=== PATIENT | female | born 1935 | race Caucasian/White ===

== ENCOUNTER 2019-04-08 13:20 | Outpatient (RCR) | payer MEDICARE, OTHER, SELFPAY | END 2019-04-22 00:01 | LOC: LAB 13:20 | PROVIDERS: Family Provider Family Medicine; Visit Provider Nurse Practitioner Family | DX: I25.10 Atherosclerotic heart disease of native coronary artery without angina pectoris (principal); I10 Essential (primary) hypertension; N39.0 Urinary tract infection, site not specified | CPT/HCPCS: 81001; 87077; 87086 ×2; 87186 ==

== ENCOUNTER 2022-04-29 16:40 | Emergency (ER) | payer MEDICARE, OTHER, SELFPAY ==
[2022-04-29] VITALS (9 sets, daily range): BP systolic 111–141; BP diastolic 48–71; PULSE 56–68; RESP 15–19; TEMP 36.6; O2SAT 76–93; BMI 23.3
--- NOTE | 2022-04-29 16:49 | W.ED.CHESTPA ---
HPI - Chest Pain General: Chief Complaint: Chest Pain Stated Complaint: CHEST PAIN Time Seen by Provider: 04/29/22 16:47 Source: patient and EMS Mode of arrival: EMS Limitations: no limitations History of Present Illness: 86-year-old female states that she been having some left-sided chest pain over the last 2 hours. States the pain is sharp in nature she has had mild nausea denies any shortness of breath is currently a 1 out of 10. She denies any worsening improving factors denies any vomiting or diarrhea. Associated symptoms: Deny abdominal pain, dyspnea, fever(s), nausea or vomiting Review of Systems Const: Denies: fever(s), chills, body aches or change in appetite Eyes: Denies: blurry vision or eye discomfort ENMT: Denies: throat pain or dental pain Card: Reports: chest pain Resp: Denies: dyspnea GI: Denies: abdominal pain, nausea, vomiting or diarrhea : Denies: dysuria Musc: Denies: neck pain or back pain Skin/Breast: Denies: rash Neuro: Denies: headache(s) Psych: Denies: depression Uche/Lymph: Denies: easy bruising All/Imm: Denies: urticaria PFSH ED PFSH: Medical History History of [place] (myocardial infarction) PVD (peripheral vascular disease) Family History Other CAD (coronary artery disease) Social History Smoking and tobacco status: former smoker Physical Exam Const: COMMON NORMALS: patient oriented x3 and healthy appearing HENMT: COMMON NORMALS: normocephalic and atraumatic HEAD & SCALP: normocephalic and atraumatic Eye: COMMON NORMALS: Equal, round and reactive pupils present and EOMs intact bilaterally PUPIL: Yes Equal, round and reactive pupils present Neck/C-Spine: COMMON NORMALS: full ROM and supple Chest: COMMONS NORMALS: normal inspection of the chest and normal palpation of entire chest wall Resp: COMMON NORMALS: normal respiratory effort, No retractions, No use of accessory muscles and clear to auscultation bilaterally AUSCULTATION: clear to auscultation bilaterally Cardio: COMMON NORMALS: regular rate, regular rhythm and No murmurs present (Cardio) RATE: regular rate RHYTHM: regular rhythm GI: COMMON NORMALS: Normal to inspection, nondistended, normoactive bowel sounds present, Soft to palpation, non-tender and no masses PALPATION: Yes Soft to palpation Extremity: COMMON NORMALS: normal to inspection and full ROM Neuro: COMMON NORMALS: patient oriented x3, moves all extremities and no focal motor deficits Psych: COMMON NORMALS: mental status grossly normal, Normal thought process present and cooperative THOUGHT PROCESS: Normal thought process present Skin: COMMON NORMALS: no rashes or lesions noted and no wounds GENERAL SKIN EXAM: no rashes or lesions noted Course Vital Signs: Vital signs: Vital Signs Temperature 97.9 F 04/29/22 16:43 Pulse Rate 56 L 04/29/22 16:43 Respiratory Rate 15 04/29/22 16:43 Blood Pressure 131/71 04/29/22 19:15 Pulse Oximetry 91 04/29/22 18:36 Oxygen Delivery Me thod 04/29/22 16:43 MDM - Chest Pain Medical Decision Making Patient presents for chest pains atypical in nature initial repeat troponins negative CTA did show little pulmonary edema she has no shortness of breath here she has not been hypoxic we will start her on Lasix give her dose of Lasix here she is to follow-up with PCP and return if worsening she understands agrees to plan. Lab Data 04/29/22 17:00 04/29/22 17:00 Radiology Impressions Chest X-Ray 04/29/22 17:05 IMPRESSION: Mild cardiomegaly. Otherwise, no acute findings. Chest CTA 04/29/22 17:29 IMPRESSION: 1. There is no pulmonary embolism. 2. There is diffuse interstitial and ground-glass opacity in the lungs concerning for edema versus pneumonitis. Moderate to severe emphysematous changes are noted. Laboratory Results WBC 8.6 10^3/uL (4.0-10.0) 04/29/22 17:00 RBC 4.14 10^6/uL (4.1-5.3) 04/29/22 17:00 Hgb 10.9 g/dL (11.5-15.3) L 04/29/22 17:00 Hct 35.6 % (37.0-47.0) L 04/29/22 17:00 MCV 86.0 fl (81-99) 04/29/22 17:00 MCH 26.3 pg (28.0-34.0) L 04/29/22 17:00 MCHC 30.6 g/dL (30.0-36.0) 04/29/22 17:00 RDW 16.4 % (12.1-15.1) H 04/29/22 17:00 Plt Count 246 10^3/cmm (130-400) 04/29/22 17:00 MPV 10.2 fL (7.4-10.4) 04/29/22 17:00 Neut % (Auto) 59.7 % 04/29/22 17:00 Lymph % (Auto) 24.9 % 04/29/22 17:00 [place] % (Auto) 11.4 % 04/29/22 17:00 Eos % (Auto) 2.8 % 04/29/22 17:00 Baso % (Auto) 0.9 % 04/29/22 17:00 Neut # (Auto) 5.13 10^3/uL (1.8-7.7) 04/29/22 17:00 Lymph # (Auto) 2.1 10^3/uL (0.8-4.8) 04/29/22 17:00 [place] # (Auto) 1.0 10^3/uL (0.2-0.9) H 04/29/22 17:00 Eos # (Auto) 0.2 10^3/uL (0.0-0.8) 04/29/22 17:00 Baso # (Auto) 0.1 10^3/uL (0.0-0.1) 04/29/22 17:00 Nucleated RBC % (auto) 0 % 04/29/22 17:00 Nucleated RBCs # 0.0 /100WBC 04/29/22 17:00 Sodium 138 mmol/L (136-145) 04/29/22 17:00 Potassium 4.1 mmol/L (3.5-5.1) 04/29/22 17:00 Chloride 102 mmol/L (98-107) 04/29/22 17:00 Carbon Dioxide 24 mmol/L (22-29) 04/29/22 17:00 Anion Gap 16.1 (5-19) 04/29/22 17:00 BUN 15 mg/dL (8-23) 04/29/22 17:00 Creatinine 1.0 mg/dL (0.5-0.9) H 04/29/22 17:00 GFR Calculation Not Reportable 04/29/22 17:00 Glucose 96 mg/dL (65-115) 04/29/22 17:00 Calculated Osmolality 287 mOsm/kg (285-295) 04/29/22 17:00 Calcium 8.7 mg/dL (8.5-10.5) 04/29/22 17:00 Total Bilirubin 0.5 mg/dL (0.15-1.2) 04/29/22 17:00 AST 21 U/L (0-32) 04/29/22 17:00 ALT 9 U/L (0-33) 04/29/22 17:00 Alkaline Phosphatase 94 U/L (35-105) 04/29/22 17:00 Troponin T Baseline 22 ng/L (0-10) H 04/29/22 17:00 Troponin T 120 Minute 19.94 ng/L (0-10) H 04/29/22 18:58 Delta Troponin T -2.06 ABS# (0-10) L 04/29/22 18:58 NT-Pro-B Natriuret Pep 694 pg/mL (0-450) H 04/29/22 18:58 Total Protein 7.1 g/dL (6.6-8.7) 04/29/22 17:00 Albumin 4.0 g/dL (3.5-5.2) 04/29/22 17:00 Globulin 3.1 g/dL (1.3-4.6) 04/29/22 17:00 EKG Data EKG 1: I personally reviewed and interpreted this EKG as follows: EKG interpretation date: 04/29/22 EKG interpretation time: 16:49 Interpretation: nsr hr [address] or t wave abnormalities qrs 97 qtc 407 Discharge Plan Discharge Patient Disposition: Home Clinical Impression: Chest pain, Pulmonary edema Condition: Stable Prescriptions: New Lasix 40 mg tablet 40 mg PO DAILY Qty: 30 0RF No Action loperamide 2 mg capsule 2 mg PO Q6H PRN hydrocodone-acetaminophen 5-325 mg tablet 1 tab PO Q6H PRN aspirin [Adult Low Dose Aspirin] 81 mg tablet,delayed release (DR/EC) 81 mg PO DAILY pregabalin [Lyrica] 50 mg capsule 50 mg PO BID acetaminophen [Tylenol 8 Hour] 650 mg tablet extended release 650 mg PO Q12H PRN fentanyl 12 mcg/hr patch 72 hour 1 patch TRANSDERMA Q72H clopidogrel [Plavix] 75 mg tablet 75 mg PO DAILY nitroglycerin [Nitrostat] 0.4 mg tablet, sublingual 0.4 mg SUBLINGUAL Q5M PRN pantoprazole [Protonix] 20 mg tablet,delayed release (DR/EC) 20 mg PO BID cranberry 500 mg capsule 500 mg PO BID gelatin 600 mg capsule PO rosuvastatin 5 mg tablet 5 mg PO DAILY melatonin 1 mg tablet 1 mg PO DAILY Discharge Orders: Discharge ED (Routine); Ordered 04/29/22 Ordered By: Camila Quinones Referrals: Velasquez Amaral Jr, MD [Primary Care Provider] - 1-3 days Discharge Diet: Advance as tolerated Discharge Activity: Resume usual activity Patient Instructions: Chest Pain (ED) Coding Level of Care Code ED Tool And Die Machinist for Chg Fwd Exam Comprehensive
--- NOTE | 2022-04-29 17:05 | XRR_ITS ---
PROCEDURE INFORMATION: Exam: XR Chest Exam date and time: 04/29/2022 5:11 PM Age: 86 years old Clinical indication: Pain; Chest pressure; Additional info: Cp TECHNIQUE: Imaging protocol: Radiologic exam of the chest. Views: 1 view. COMPARISON: CT chest w con* [id number] 11/14/2016 3:48 PM FINDINGS: Lungs: Mild diffuse coarsening of the lung parenchyma. No consolidation. No consolidation. Pleural spaces: No pleural effusion. No pneumothorax. Heart/Mediastinum: Mild cardiomegaly. Bones/joints: Unremarkable. XR/XR chest 1V portable [id number] IMPRESSION: Mild cardiomegaly. Otherwise, no acute findings.
--- NOTE | 2022-04-29 17:05 | ECG_ITS ---
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 Measurements Intervals [place] Rate: 60 P: 55 WI: 172 QRS: 30 QRSD: 97 T: -60 QT: 407 QTc: 407 Interpretive Statements SINUS RHYTHM WITH OCCASIONAL SUPRAVENTRICULAR PREMATURE COMPLEXES INCOMPLETE RIGHT BUNDLE BRANCH BLOCK [90+ ms QRS DURATION, TERMINAL R IN V1/V2, 40+ ms S IN I/aVL/V4/V5/V6] SEPTAL MYOCARDIAL INFARCTION , PROBABLY OLD [40+ ms Q WAVE IN V1/V2] Compared to ECG 09/01/2016 11:17:47 Incomplete right bundle-branch block now present Sinus bradycardia no longer present Ventricular premature complex(es) no longer present Myocardial infarct finding still present Electronically Signed On 04-30-2022 20:00:28 CHORAL DIRECTOR by Ryanne Rodriguez M.D. [id number]
[2022-04-29 17:15] LABS: Basophils # 0.1 10^3/uL (0.0-0.1); Basophils % 0.9 %; Eosinophils # 0.2 10^3/uL (0.0-0.8); Eosinophils % 2.8 %; Hematocrit 35.6 % (37.0-47.0); Hemoglobin 10.9 g/dL (11.5-15.3); Lymphocytes # 2.1 10^3/uL (0.8-4.8); Lymphocytes % 24.9 %; Mean Corpuscular HGB Conc 30.6 g/dL (30.0-36.0); Mean Corpuscular Hemoglobin 26.3 pg (28.0-34.0); Mean Platelet Volume 10.2 fL (7.4-10.4); Monocytes % 11.4 %; Neutrophils # 5.13 10^3/uL (1.8-7.7); Neutrophils % 59.7 %; Nucleated Red Blood Cells % 0 %; Platelet Count 246 10^3/cmm (130-400); Red Blood Count 4.14 10^6/uL (4.1-5.3); Red Cell Distribution Width 16.4 % (12.1-15.1); White Blood Count 8.6 10^3/uL (4.0-10.0)
--- NOTE | 2022-04-29 17:29 | CTR_ITS ---
PROCEDURE INFORMATION: Exam: CTA Chest With Contrast Exam date and time: 04/29/2022 5:47 PM Age: 86 years old Clinical indication: Shortness of breath; Additional info: SOB TECHNIQUE: Imaging protocol: Computed tomographic angiography of the chest with contrast. 3D rendering (Not supervised by radiologist): MIP and/or 3D reconstructed images were created by the technologist. Radiation optimization: All CT scans at this facility use at least one of these dose optimization techniques: automated exposure control; mA and/or kV adjustment per patient size (includes targeted exams where dose is matched to clinical indication); or iterative reconstruction. Contrast material: OMNI 350; Contrast volume: 74 ml; Contrast route: INTRAVENOUS (IV); COMPARISON: CT chest w con* [id number] 11/14/2016 3:48 PM RADIATION DOSE METRICS: Total DLP (mGy-cm): 3005.24 FINDINGS: Pulmonary arteries: There is no pulmonary embolism. Aorta: Unremarkable. No aortic aneurysm. No aortic dissection. Lungs: There are moderate to severe emphysematous changes. There is diffuse interstitial and ground-glass opacity in the lungs concerning for edema versus pneumonitis. There is subpleural atelectasis of the dependent portions of the lungs. There is no dense lobar consolidation. Pleural spaces: Unremarkable. No pneumothorax. No pleural effusion. Heart: The heart is enlarged. There is a small pericardial fluid collection present. Lymph nodes: Unremarkable. No enlarged lymph nodes. Diaphragm: A large hiatal hernia is present. Gallbladder and bile ducts: Multiple calcified gallstones are present. There is no wall thickening or pericholecystic fluid to suggest cholecystitis. There is no common bile duct dilation. Bones/joints: Unchanged chronic fractures of T10 and L1 are noted. No acute bony abnormality. Soft tissues: Unremarkable. CT/CT angio chest PE protcl [id number] IMPRESSION: 1. There is no pulmonary embolism. 2. There is diffuse interstitial and ground-glass opacity in the lungs concerning for edema versus pneumonitis. Moderate to severe emphysematous changes are noted.
[2022-04-29 17:34] LABS: Alanine Aminotransferase 9 U/L (0-33); Alkaline Phosphatase 94 U/L (35-105); Aspartate Amino Transferase 21 U/L (0-32); Blood Urea Nitrogen 15 mg/dL (8-23); Calcium 8.7 mg/dL (8.5-10.5); Carbon Dioxide 24 mmol/L (22-29); Chloride 102 mmol/L (98-107); Globulin 3.1 g/dL (1.3-4.6); Glucose 96 mg/dL (65-115); Osmolality Calculated 287 mOsm/kg (285-295); Sodium 138 mmol/L (136-145); Total Bilirubin 0.5 mg/dL (0.15-1.2); Total Protein 7.1 g/dL (6.6-8.7); Troponin(5th) Baseline 22 ng/L (0-10)
[2022-04-29 17:37] LABS: Anion Gap 16.1 (5-19); Potassium 4.1 mmol/L (3.5-5.1)
[2022-04-29] MEDS: iohexol 350 mg/mL 500 mL Btl (per mL) IV (17:51)
--- NOTE | 2022-04-29 19:05 | ECG_ITS ---
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 Measurements Intervals [place] Rate: 64 P: 55 GA: 183 QRS: -2 QRSD: 89 T: -8 QT: 411 QTc: 426 Interpretive Statements SINUS RHYTHM WITH OCCASIONAL SUPRAVENTRICULAR PREMATURE COMPLEXES NONSPECIFIC T-WAVE ABNORMALITY Compared to ECG 04/29/2022 16:49:10 T-wave abnormality now present Incomplete right bundle-branch block no longer present Myocardial infarct finding no longer present Electronically Signed On 04-30-2022 20:18:10 ENGINEERING SURVEYOR by Ryanne Rodriguez M.D. [id number]"
[2022-04-29] MEDS: ondansetron 2 mg/ML SDV 2 mL 4 MG IVP (19:26)
[2022-04-29 19:27] LABS: Troponin 5 2HR 19.94 ng/L (0-10)
[2022-04-29 19:28] LABS: Troponin 5 2HR Delta -2.06 ABS# (0-10)
[2022-04-29 19:36] LABS: NT Pro B Type Natriuretic Pept 694 pg/mL (0-450)
== END 2022-04-29 20:15 | disposition home or self-care (01) ==
PROVIDERS: Emergency Provider Emergency Medicine; PCP Family Medicine
DX: R07.9 Chest pain, unspecified (principal); J81.1 Chronic pulmonary edema; Z79.82 Long term (current) use of aspirin; Z79.02 Long term (current) use of antithrombotics/antiplatelets; I25.2 Old myocardial infarction; Z87.891 Personal history of nicotine dependence
CPT/HCPCS: 36415; 71045; 71275; 80053; 83880; 84484; 85025; 93005; 96374; 99285; J2405; Q9967

== ENCOUNTER 2022-05-05 11:54 | Outpatient (CLI) | payer MEDICARE, OTHER, SELFPAY ==
[2022-05-05 13:06] LABS: Anion Gap 19.2 (5-19); Blood Urea Nitrogen 34 mg/dL (8-23); Calcium 9.2 mg/dL (8.5-10.5); Carbon Dioxide 26 mmol/L (22-29); Chloride 95 mmol/L (98-107); Glucose 138 mg/dL (65-115); Osmolality Calculated 294 mOsm/kg (285-295); Potassium 3.2 mmol/L (3.5-5.1); Sodium 137 mmol/L (136-145)
== END 2022-05-05 11:55 | disposition home or self-care (01) ==
PROVIDERS: PCP Family Medicine; Visit Provider Family Medicine
DX: I10 Essential (primary) hypertension (principal)
CPT/HCPCS: 80048

== ENCOUNTER 2022-05-12 09:33 | Outpatient (CLI) | payer MEDICARE, OTHER, SELFPAY ==
[2022-05-12 09:48] LABS: Bilirubin Urine Neg (Negative); Blood Urine 2+ (Negative); Glucose Urine UA Norm (Normal); Ketones Urine Negative (Negative); Nitrate Urine Negative (Negative); Protein Urine Neg (Negative); Specific Gravity, Urine 1.015 (1.005-1.030); Urine Appearance Clear (CLEAR); Urine Color Yellow (Yellow); Urobilinogen Urine Neg (Negative); pH Urine 6 (5-7)
[2022-05-12 09:49] LABS: Add Urine Microscopic? YES; Leukocyte Esterase Urine 1+ (Negative)
[2022-05-12 09:55] LABS: Squamous Epithelial Cell Urine 0-4 /hpf (0-5); WBC Urine 0-4 /hpf (0-5)
[2022-05-12 09:56] LABS: Add Urine Culture? No
== END 2022-05-12 09:34 | disposition home or self-care (01) ==
PROVIDERS: PCP Family Medicine; Visit Provider Family Medicine
DX: N39.0 Urinary tract infection, site not specified (principal)
CPT/HCPCS: 81001; 87086

== ENCOUNTER 2022-07-11 13:33 | Outpatient (CLI) | payer MEDICARE, OTHER, SELFPAY ==
[2022-07-11 13:36] LABS: Add Urine Microscopic? NO; Charge for UA Resulting for Rev
[2022-07-11 14:09] LABS: Bilirubin Urine Neg (Negative); Blood Urine Neg (Negative); Glucose Urine UA Norm (Normal); Ketones Urine Negative (Negative); Leukocyte Esterase Urine Negative (Negative); Nitrate Urine Negative (Negative); Protein Urine Neg (Negative); Specific Gravity, Urine 1.015 (1.005-1.030); Urine Appearance Clear (CLEAR); Urine Color Yellow (Yellow); Urobilinogen Urine Norm (Negative); pH Urine 7 (5-7)
== END 2022-07-11 13:34 | disposition home or self-care (01) ==
PROVIDERS: PCP Family Medicine; Visit Provider Family Medicine
DX: N39.0 Urinary tract infection, site not specified (principal)
CPT/HCPCS: 81003; 87086

== ENCOUNTER 2022-08-10 07:42 | Outpatient (CLI) | payer MEDICARE, OTHER, SELFPAY ==
[2022-08-10 08:06] LABS: Basophils # 0.1 10^3/uL (0.0-0.1); Eosinophils # 0.6 10^3/uL (0.0-0.8); Eosinophils % 6.3 %; Hematocrit 35.9 % (37.0-47.0); Lymphocytes # 2.2 10^3/uL (0.8-4.8); Lymphocytes % 25.3 %; Mean Corpuscular HGB Conc 30.6 g/dL (30.0-36.0); Mean Corpuscular Hemoglobin 25.7 pg (28.0-34.0); Mean Corpuscular Volume 83.9 fl (81-99); Mean Platelet Volume 9.5 fL (7.4-10.4); Monocytes # 1.1 10^3/uL (0.2-0.9); Monocytes % 12.6 %; Neutrophils % 54.3 %; Nucleated Red Blood Cells % 0 %; Platelet Count 273 10^3/cmm (130-400); Red Blood Count 4.28 10^6/uL (4.1-5.3); Red Cell Distribution Width 16.3 % (12.1-15.1); White Blood Count 8.8 10^3/uL (4.0-10.0)
[2022-08-10 08:26] LABS: Glucose Urine UA Norm (Normal); Ketones Urine Negative (Negative); Protein Urine Neg (Negative); Specific Gravity, Urine 1.015 (1.005-1.030); Urine Appearance Clear (CLEAR); Urine Color Yellow (Yellow); pH Urine 6.5 (5-7)
[2022-08-10 08:27] LABS: Bacteria Urine TRACE /hpf; Bilirubin Urine Neg (Negative); Blood Urine Neg (Negative); Calcium Oxalate Crystals Urine 0-4 /hpf; Leukocyte Esterase Urine 2+ (Negative); Nitrate Urine Negative (Negative); RBC Urine 0-4 /hpf (0-2); Squamous Epithelial Cell Urine 0-4 /hpf (0-5); Urobilinogen Urine Norm (Negative)
[2022-08-10 08:46] LABS: Alanine Aminotransferase < 5 U/L (0-33); Albumin Level 3.2 g/dL (3.5-5.2); Alkaline Phosphatase 90 U/L (35-105); Aspartate Amino Transferase 14 U/L (0-32); Blood Urea Nitrogen 20 mg/dL (8-23); Calcium 8.5 mg/dL (8.5-10.5); Carbon Dioxide 28 mmol/L (22-29); Chloride 100 mmol/L (98-107); Globulin 3.3 g/dL (1.3-4.6); Glucose 82 mg/dL (65-115); Osmolality Calculated 294 mOsm/kg (285-295); Sodium 141 mmol/L (136-145); Thyroid Stimulating Hormone 5.16 uIU/mL (0.27-4.20); Total Bilirubin 0.3 mg/dL (0.15-1.2); Total Protein 6.5 g/dL (6.6-8.7)
== END 2022-08-10 07:43 | disposition home or self-care (01) ==
PROVIDERS: PCP Family Medicine; Visit Provider Family Medicine
DX: E03.9 Hypothyroidism, unspecified (principal); N39.0 Urinary tract infection, site not specified; E78.5 Hyperlipidemia, unspecified; D64.9 Anemia, unspecified; I10 Essential (primary) hypertension
CPT/HCPCS: 80053; 81001; 84443; 85025; 87086

== ENCOUNTER 2022-08-30 16:43 | Outpatient (CLI) | payer MEDICARE, OTHER, SELFPAY ==
[2022-08-30 17:37] LABS: Anion Gap 17.2 (5-19); Blood Urea Nitrogen 14 mg/dL (8-23); Calcium 8.6 mg/dL (8.5-10.5); Carbon Dioxide 22 mmol/L (22-29); Chloride 104 mmol/L (98-107); Glucose 106 mg/dL (65-115); Osmolality Calculated 289 mOsm/kg (285-295); Potassium 4.2 mmol/L (3.5-5.1); Sodium 139 mmol/L (136-145)
== END 2022-08-30 16:44 | disposition home or self-care (01) ==
LOC: LAB 16:44
PROVIDERS: PCP Family Medicine; Visit Provider Family Medicine
DX: I10 Essential (primary) hypertension (principal)
CPT/HCPCS: 80048

== ENCOUNTER 2022-09-05 16:24 | Inpatient (IN) | payer MEDICARE, OTHER, SELFPAY ==
[2022-09-05 16:27] VITALS: BP 142/61; PULSE 73; RESP 16; TEMP 36.6; O2SAT 97; BMI 22.6
--- NOTE | 2022-09-05 16:32 | XRR_ITS ---
PROCEDURE INFORMATION: Exam: XR Chest Exam date and time: 09/05/2022 5:13 PM Age: 86 years old Clinical indication: Cough and shortness of breath; Additional info: Dyspnea/cough TECHNIQUE: Imaging protocol: Radiologic exam of the chest. Views: 1 view. COMPARISON: CR XR chest 1V portable [id number] 04/29/2022 5:11 PM FINDINGS: Lungs: Diffuse perihilar predominant interstitial prominence is similar to previous. There is new interstitial opacity in the peripheral left mid lung. Pleural spaces: Unremarkable. No pleural effusion. No pneumothorax. Heart/Mediastinum: Stable heart size. Stable large hiatal hernia. Bones/joints: Stable bones. XR/XR chest 1V portable [id number] IMPRESSION: New peripheral left mid lung interstitial opacity suspicious for pneumonia superimposed on similar-appearing perihilar predominant interstitial opacities, which may be chronic.
--- NOTE | 2022-09-05 16:42 | ED_ITS ---
HPI - SOB/Dyspnea General: Chief Complaint: Shortness of Breath/Dyspnea Stated Complaint: low o2 Time Seen by Provider: 09/05/22 16:31 Source: patient Mode of arrival: ambulatory History of Present Illness: HPI Narrative: 86-year-old female presents to the emergency room complaining of shortness of breath. She normally lives at [facility] she was noted to be mildly hypoxic yesterday but refused to come to the emergency room. She denies any fever sweats or chills she is normally not on any oxygen she is not requiring 2 L by nasal cannula to maintain her sats in the mid to upper 90s. She denies fever sweats chills or chest pain. She does have a history of coronary disease over 25 years ago patient had several stents placed per her report. She denies any chest pain. She does have some mild dementia. Family member later at the bedside confirms MD elicited complaint: shortness of breath Pertinent past history: COPD Onset (ago): day(s) Timing: constant Severity: moderate Exacerbating factors: lying flat and exertion Relieving factors: oxygen and rest Known history of: COPD Associated symptoms: Reports chest congestion, cough and nausea; Deny abdominal pain, chest pain, diaphoresis, dizziness, extremity pain, fever(s), hemoptysis, lightheadedness, myalgias, orthopnea, palpitations, paresthesias, polydipsia, polyuria, rash, sense of impending doom, syncope or vomiting Treatment prior to arrival: oxygen Review of Systems Const: Denies: fever(s) or diaphoresis Card: Denies: chest pain, palpitations, lightheadedness, syncope or orthopnea Resp: Reports: chest congestion; Denies: hemoptysis GI: Reports: nausea; Denies: abdominal pain or vomiting Musc: Denies: extremity pain Neuro: Denies: dizziness Endo: Denies: polyuria or polydipsia PFS ED PFSH: Medical History GERD (gastroesophageal reflux disease) History of [place] (myocardial infarction) Neuropathy PVD (peripheral vascular disease) Family History Other CAD (coronary artery disease) Social History Smoking and tobacco status: former smoker Physical Exam Const: COMMON NORMALS: no acute distress ORIENTATION/CONSCIOUSNESS: Yes awake HENMT: COMMON NORMALS: normocephalic, atraumatic and hearing grossly normal bilaterally HEAD & SCALP: normocephalic and atraumatic Resp: COMMON NORMALS: normal respiratory effort, No retractions and No use of accessory muscles AUSCULTATION: rhonchi and wheezes Cardio: COMMON NORMALS: regular rate, regular rhythm and No murmurs present (Cardio) RATE: regular rate RHYTHM: regular rhythm GI: COMMON NORMALS: Soft to palpation and No hepatosplenomegaly present AUSCULTATION: Yes normoactive bowel sounds PALPATION: Yes Soft to palpation, No Tenderness to palpation present (GI), No Guarding due to palpation present (GI) and Yes No hepatosplenomegaly present Extremity: COMMON NORMALS: normal to inspection, capillary refill normal, no clubbing, cyanosis or edema, no calf tenderness and no pedal edema Skin: COMMON NORMALS: no rashes or lesions noted GENERAL SKIN EXAM: no rashes or lesions noted Course Vital Signs: Vital signs: Vital Signs Temperature 98.4 F 09/06/22 03:49 Pulse Rate 70 09/06/22 03:49 Respiratory Rate 17 09/06/22 03:49 Blood Pressure 110/61 09/06/22 03:49 Pulse Oximetry 90 09/06/22 03:49 Oxygen Delivery Me thod Nasal Cannula 09/06/22 00:04 Oxygen Flow Rate 2 09/05/22 19:00 MDM - SOB/Dyspnea Medical Decision Making Labs and imaging reviewed. Left midlung zone there is an opacity. This correlates with her new oxygen need clinically she does appear to have a pneumonia. Recommend admission for IV antibiotics. Discussed with family at. They are in agreement at this time although there is somewhat hesitant. They wish to treat as an outpatient advised him I think it is best least for the first few days to treat as an inpatient. Discussed Dr. Sheffield orders written Medical Records I reviewed the patient's medical records. Lab Data I reviewed the patient's lab results. 09/06/22 06:28 09/05/22 17:24 Labs/Radiology: Radiology Impressions Chest X-Ray 09/05/22 16:32 IMPRESSION: New peripheral left mid lung interstitial opacity suspicious for pneumonia superimposed on similar-appearing perihilar predominant interstitial opacities, which may be chronic. Laboratory Results WBC 7.1 10^3/uL (4.0-10.0) 09/05/22 17:24 RBC 4.24 10^6/uL (4.1-5.3) 09/05/22 17:24 Hgb 11.2 g/dL (11.5-15.3) L 09/05/22 17:24 Hct 36.2 % (37.0-47.0) L 09/05/22 17:24 MCV 85.4 fl (81-99) 09/05/22 17:24 MCH 26.4 pg (28.0-34.0) L 09/05/22 17:24 MCHC 30.9 g/dL (30.0-36.0) 09/05/22 17:24 RDW 17.2 % (12.1-15.1) H 09/05/22 17:24 Plt Count 227 10^3/cmm (130-400) 09/05/22 17:24 MPV 9.1 fL (7.4-10.4) 09/05/22 17:24 Neut % (Auto) 58.8 % 09/05/22 17:24 Lymph % (Auto) 23.8 % 09/05/22 17:24 [place] % (Auto) 13.0 % 09/05/22 17:24 Eos % (Auto) 3.5 % 09/05/22 17:24 Baso % (Auto) 0.8 % 09/05/22 17:24 Neut # (Auto) 4.16 10^3/uL (1.8-7.7) 09/05/22 17:24 Lymph # (Auto) 1.7 10^3/uL (0.8-4.8) 09/05/22 17:24 [place] # (Auto) 0.9 10^3/uL (0.2-0.9) 09/05/22 17:24 Eos # (Auto) 0.3 10^3/uL (0.0-0.8) 09/05/22 17:24 Baso # (Auto) 0.1 10^3/uL (0.0-0.1) 09/05/22 17:24 Nucleated RBC % (auto) 0 % 09/05/22 17:24 Nucleated RBCs # 0.0 /100WBC 09/05/22 17:24 Specimen Type Arterial 09/05/22 16:43 Sample Site Brachial, right 09/05/22 16:43 ABG pH 7.41 (7.35-7.45) 09/05/22 16:43 ABG pCO2 41.6 mmHg (35-45) 09/05/22 16:43 ABG pO2 65.6 mmHg (80.0-100.0) L 09/05/22 16:43 ABG HCO3 26.4 mmol/L (22-26) H 09/05/22 16:43 ABG O2 Saturation 94.3 09/05/22 16:43 ABG Base Excess 1.6 mmol/L (-2.0-2.0) 09/05/22 16:43 Gaurav Test N/a 09/05/22 16:43 A-a O2 Gradient 10.6 mmHg (5-10) H 09/05/22 16:43 Hematocrit 34.7 % (37-47) L 09/05/22 16:43 Hgb O2 Saturation 92.1 % (95-100) L 09/05/22 16:43 Carboxyhemoglobin 1.6 %THgb (0.4-20.1) 09/05/22 16:43 Methemoglobin 0.7 % (0.4-1.5) 09/05/22 16:43 Total Hemoglobin 11.3 g/dL (12-16) L 09/05/22 16:43 Sodium 139.0 mmol/L (131-143) 09/05/22 16:43 Potassium 4.0 mmol/L (3.5-5.0) 09/05/22 16:43 Glucose 135.0 mg/dL (70-115) H 09/05/22 16:43 Ionized Calcium 1.2 mmol/L (1.1-1.4) 09/05/22 16:43 O2 Delivery Device Nc 09/05/22 16:43 O2 Liters/Min 2.0 % 09/05/22 16:43 FiO2 28.0 % 09/05/22 16:43 Chucking And Boring Machine Operator ID [email or web address] 09/05/22 16:43 Sodium 137 mmol/L (136-145) 09/05/22 17:24 Potassium 4.2 mmol/L (3.5-5.1) 09/05/22 17:24 Chloride 102 mmol/L (98-107) 09/05/22 17:24 Carbon Dioxide 26 mmol/L (22-29) 09/05/22 17:24 Anion Gap 13.2 (5-19) 09/05/22 17:24 BUN 9 mg/dL (8-23) 09/05/22 17:24 Creatinine 0.9 mg/dL (0.5-0.9) 09/05/22 17:24 GFR Calculation Not Reportable 09/05/22 17:24 Glucose 113 mg/dL (65-115) 09/05/22 17:24 Calculated Osmolality 283 mOsm/kg (285-295) L 09/05/22 17:24 Calcium 8.9 mg/dL (8.5-10.5) 09/05/22 17:24 Total Bilirubin 0.3 mg/dL (0.15-1.2) 09/05/22 17:24 AST 37 U/L (0-32) H 09/05/22 17:24 ALT 28 U/L (0-33) 09/05/22 17:24 Alkaline Phosphatase 154 U/L (35-105) H 09/05/22 17:24 NT-Pro-B Natriuret Pep 454 pg/mL (0-450) H 09/05/22 17:24 Total Protein 6.8 g/dL (6.6-8.7) 09/05/22 17:24 Albumin 3.5 g/dL (3.5-5.2) 09/05/22 17:24 Globulin 3.3 g/dL (1.3-4.6) 09/05/22 17:24 Discharge Plan Discharge Patient Disposition: Admitted As Inpatient Admit Provider: Deon Sheffield Clinical Impression: Community acquired pneumonia, Acute exacerbation of chronic obstructive airways disease, Heart failure with preserved ejection fraction, Lives in assisted living facility, History of OH (myocardial infarction), PVD (peripheral vascular disease) Condition: Stable Coding Level of Care Code ED Slab Puller for Dominick Brewster
[2022-09-05 16:54] LABS: ABG PCO2 41.6 mmHg (35-45); ABG PH Result 7.41 (7.35-7.45); Alveolar-Arterial Oxygen Gradi 10.6 mmHg (5-10); Arterial Blood Gas Hematocrit 34.7 % (37-47); Base Excess ABG 1.6 mmol/L (-2.0-2.0); Blood Gas Operator Identificat AMH; Blood Gas Sample Site Brachial, right; Blood Gas Sample Type Arterial; Carboxyhemoglobin 1.6 %THgb (0.4-20.1); HCO3 ABG 26.4 mmol/L (22-26); HGB O2 Sat 92.1 % (95-100); Ionized Calcium Level - ABG 1.2 mmol/L (1.1-1.4); Methemoglobin 0.7 % (0.4-1.5); Oxygen Device NC; Oxygen Saturation ABG 94.3; PO2 ABG 65.6 mmHg (80.0-100.0); Total Hemoglobin 11.3 g/dL (12-16)
[2022-09-05 17:35] LABS: Basophils # 0.1 10^3/uL (0.0-0.1); Basophils % 0.8 %; Eosinophils # 0.3 10^3/uL (0.0-0.8); Eosinophils % 3.5 %; Hematocrit 36.2 % (37.0-47.0); Hemoglobin 11.2 g/dL (11.5-15.3); Lymphocytes # 1.7 10^3/uL (0.8-4.8); Lymphocytes % 23.8 %; Mean Corpuscular HGB Conc 30.9 g/dL (30.0-36.0); Mean Corpuscular Hemoglobin 26.4 pg (28.0-34.0); Mean Corpuscular Volume 85.4 fl (81-99); Mean Platelet Volume 9.1 fL (7.4-10.4); Monocytes # 0.9 10^3/uL (0.2-0.9); Neutrophils # 4.16 10^3/uL (1.8-7.7); Neutrophils % 58.8 %; Nucleated Red Blood Cells % 0 %; Platelet Count 227 10^3/cmm (130-400); Red Blood Count 4.24 10^6/uL (4.1-5.3); Red Cell Distribution Width 17.2 % (12.1-15.1); White Blood Count 7.1 10^3/uL (4.0-10.0)
[2022-09-05 18:20] LABS: Alanine Aminotransferase 28 U/L (0-33); Albumin Level 3.5 g/dL (3.5-5.2); Alkaline Phosphatase 154 U/L (35-105); Anion Gap 13.2 (5-19); Aspartate Amino Transferase 37 U/L (0-32); Blood Urea Nitrogen 9 mg/dL (8-23); Calcium 8.9 mg/dL (8.5-10.5); Carbon Dioxide 26 mmol/L (22-29); Chloride 102 mmol/L (98-107); Globulin 3.3 g/dL (1.3-4.6); Glucose 113 mg/dL (65-115); NT Pro B Type Natriuretic Pept 454 pg/mL (0-450); Osmolality Calculated 283 mOsm/kg (285-295); Potassium 4.2 mmol/L (3.5-5.1); Sodium 137 mmol/L (136-145); Total Bilirubin 0.3 mg/dL (0.15-1.2); Total Protein 6.8 g/dL (6.6-8.7)
[2022-09-05 18:33] VITALS: RESP 18; O2SAT 95
[2022-09-05] MEDS: levofloxacin-dextrose 5 % 500 MG/100 ML PREMIX 100 MG IV (18:41)
--- NOTE | 2022-09-05 18:43 | ECG_ITS ---
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 Measurements Intervals [place] Rate: 71 P: 21 [place]: 192 QRS: -8 QRSD: 87 T: -31 QT: 383 QTc: 418 Interpretive Statements SINUS RHYTHM WITH OCCASIONAL SUPRAVENTRICULAR PREMATURE COMPLEXES LOW QRS VOLTAGE IN PRECORDIAL LEADS [QRS DEFLECTION < 1.0 mV IN CHEST LEADS] POSSIBLE RIGHT VENTRICULAR CONDUCTION DELAY [RSR (QR) IN V1/V2] ANTEROSEPTAL MYOCARDIAL INFARCTION , OF INDETERMINATE AGE [40+ ms Q WAVE IN V1-V4] Compared to ECG 04/29/2022 19:39:58 Low QRS voltage now present Myocardial infarct finding now present T-wave abnormality no longer present Electronically Signed On 09-06-2022 17:50:23 CDT by Juan Crowley M.D. [id number]
[2022-09-05 19:00] VITALS: BP 162/68; PULSE 72; RESP 16; O2SAT 95
[2022-09-05 19:30] VITALS: BP 161/75; PULSE 81; RESP 15; O2SAT 98
[2022-09-05 21:48] LABS: D Dimer 1.25 ug/mIFEU (0-0.59)
[2022-09-05 21:50] LABS: Troponin(5th) Baseline 17 ng/L (0-10)
[2022-09-05 22:36] VITALS: BP 166/77; PULSE 75; RESP 17; TEMP 36.7; O2SAT 94
[2022-09-05 22:43] VITALS: PULSE 72
[2022-09-05] MEDS: cefTRIAXone 1,000 MG in sodium chloride 0.9% (plus) 50 ML 100 MG IV (23:27)
[2022-09-05] MEDS: enoxaparin 40 mg/0.4 mL Syringe SUBCUT (23:27)
--- NOTE | 2022-09-05 23:29 | P.HP_ITS ---
Providers/Chief Complaint Admitting Physician: Deon Sheffield MD Primary Care Provider: Lj Raza DO Chief Complaint: low o2 History of Present Illness Thelma Rubalcava is a 86 year old female, resident at [facility] sent over from the facility due to c/o genralized weakness and hypoxia. Patient unable to contribute to her histiry, suspect this is related to documented dementia . She states she has been weak for a very long time, has been coughing for a very long time. Also reports nausea and dizziness over the past few days. She has a new 02 requirement today. Labs notable for mild anemia, no leukocytosis, CXR shows retrocardiac infiltrate c/ for pneumonia Review of Systems General: Reports: ROS unobtainable due to medical condition Medications/Allergies Home Medications Medication Instructions Recorded Confirmed Last Taken Type acetaminophen 650 mg 650 mg PO Q4H PRN Pain 08/18/19 09/06/22 Unknown History tablet,extended release (Tylenol 8 Hour) aspirin 81 mg tablet,delayed 81 mg PO DAILY 08/18/19 09/06/22 Unknown History release (Adult Low Dose Aspirin) clopidogrel 75 mg tablet (Plavix) 75 mg PO DAILY 08/18/19 09/06/22 Unknown History cranberry 500 mg capsule 500 mg PO BID 08/18/19 09/06/22 Unknown History gelatin 600 mg capsule 600 mg PO DAILY 08/18/19 09/06/22 Unknown History loperamide 2 mg capsule 2 mg PO Q4H PRN Diarrhea 08/18/19 09/06/22 Unknown History melatonin 1 mg tablet 1 mg PO BEDTIME 08/18/19 09/06/22 Unknown History nitroglycerin 0.4 mg sublingual 0.4 mg sublingual Q5M PRN Chest 08/18/19 09/06/22 Unknown History tablet (Nitrostat) Pain pantoprazole 20 mg tablet,delayed 20 mg PO BID 08/18/19 09/06/22 Unknown History release (Protonix) rosuvastatin 5 mg tablet 5 mg PO DAILY 08/18/19 09/06/22 Unknown History potassium chloride 10 mEq 10 meq PO DAILY 30 days #30 tabs 05/31/22 09/06/22 Unknown Rx tablet,extended release fentanyl 25 mcg/hr transdermal 1 patch transdermal Q72H 30 days 09/03/22 09/06/22 Unknown Rx patch #10 patches albuterol sulfate 90 mcg/actuation 2 puff inhalation Q6H PRN 09/06/22 09/06/22 U nknown History aerosol inhaler Shortness Of Breath amitriptyline 10 mg tablet 10 mg PO BEDTIME 09/06/22 09/06/22 Unknown History docusate sodium 100 mg capsule 200 mg PO BID PRN Constipation 09/06/22 09/06/22 Unknown History Allergies Allergy/AdvReac Type Severity Reaction Status Date / Time adhesive tape Allergy Unknown Unknown Verified 08/17/22 14:28 latex Allergy Unknown Verified 09/05/22 22:00 PFSH Acute 2 PFSH: Medical History GERD (gastroesophageal reflux disease) History of PA (myocardial infarction) Neuropathy PVD (peripheral vascular disease) Family History Other CAD (coronary artery disease) Social History Smoking and tobacco status: former smoker Vitals/I&O/Wt Last Vital Signs Temp 97.9 F 09/05/22 16:27 Pulse 81 09/05/22 19:30 Resp 15 09/05/22 19:30 BP 161/75 09/05/22 19:30 Pulse Ox 98 09/05/22 19:30 O2 Del Method Nasal Cannula 09/05/22 22:44 O2 Flow Rate 2 09/05/22 19:00 09/05/22 09/05/22 09/06/22 14:59 22:59 06:59 Intake Total 100 / 100 Balance 100 / 100 Weight last 48 hrs Weight 63.503 kg Physical Exam Narrative: General: No acute distress, AO x2-3 HEENT: PERRLA, pupils bilaterally equal and reactive, pallors not present Chest: Normal vesicular breath sounds, no added sounds, equal good air entry bilaterally CVS: S1-S2 regular, no murmurs, no tachycardia, no gallops, no rubs Abdomen: Soft, nontender, no organomegaly, bowel sounds present Neuro: No focal deficits, no facial deformity, AO x3, power 5/5 in all limbs Extremities: no edema, clubbing or cyanosis Data 09/06/22 06:28 09/06/22 06:28 Micro: Microbiology 09/05/22 18:20 Blood Culture - Preliminary Blood SPECIMEN COLLECTED 09/05/22 18:09 Blood Culture - Preliminary Blood SPECIMEN COLLECTED Other data: Radiology Impressions Chest X-Ray 09/05/22 16:32 IMPRESSION: New peripheral left mid lung interstitial opacity suspicious for pneumonia superimposed on similar-appearing perihilar predominant interstitial opacities, which may be chronic. Laboratory Results WBC 7.9 10^3/uL (4.0-10.0) 09/06/22 06:28 RBC 4.03 10^6/uL (4.1-5.3) L 09/06/22 06:28 Hgb 10.5 g/dL (11.5-15.3) L 09/06/22 06:28 Hct 35.1 % (37.0-47.0) L 09/06/22 06:28 MCV 87.1 fl (81-99) 09/06/22 06:28 MCH 26.1 pg (28.0-34.0) L 09/06/22 06:28 MCHC 29.9 g/dL (30.0-36.0) L 09/06/22 06:28 RDW 17.3 % (12.1-15.1) H 09/06/22 06:28 Plt Count 230 10^3/cmm (130-400) 09/06/22 06:28 MPV 9.2 fL (7.4-10.4) 09/06/22 06:28 Neut % (Auto) 61.5 % 09/06/22 06:28 Lymph % (Auto) 21.7 % 09/06/22 06:28 Grainger % (Auto) 13.8 % 09/06/22 06:28 Eos % (Auto) 1.5 % 09/06/22 06:28 Baso % (Auto) 1.1 % 09/06/22 06:28 Neut # (Auto) 4.84 10^3/uL (1.8-7.7) 09/06/22 06:28 Lymph # (Auto) 1.7 10^3/uL (0.8-4.8) 09/06/22 06:28 Grainger # (Auto) 1.1 10^3/uL (0.2-0.9) H 09/06/22 06:28 Eos # (Auto) 0.1 10^3/uL (0.0-0.8) 09/06/22 06:28 Baso # (Auto) 0.1 10^3/uL (0.0-0.1) 09/06/22 06:28 Nucleated RBC % (auto) 0 % 09/06/22 06:28 Nucleated RBCs # 0.0 /100WBC 09/06/22 06:28 D-Dimer 1.25 ug/mIFEU (0-0.59) H 09/05/22 21:24 Specimen Type Arterial 09/05/22 16:43 Sample Site Brachial, right 09/05/22 16:43 ABG pH 7.41 (7.35-7.45) 09/05/22 16:43 ABG pCO2 41.6 mmHg (35-45) 09/05/22 16:43 ABG pO2 65.6 mmHg (80.0-100.0) L 09/05/22 16:43 ABG HCO3 26.4 mmol/L (22-26) H 09/05/22 16:43 ABG O2 Saturation 94.3 09/05/22 16:43 ABG Base Excess 1.6 mmol/L (-2.0-2.0) 09/05/22 16:43 Gaurav Test N/a 09/05/22 16:43 A-a O2 Gradient 10.6 mmHg (5-10) H 09/05/22 16:43 Hematocrit 34.7 % (37-47) L 09/05/22 16:43 Hgb O2 Saturation 92.1 % (95-100) L 09/05/22 16:43 Carboxyhemoglobin 1.6 %THgb (0.4-20.1) 09/05/22 16:43 Methemoglobin 0.7 % (0.4-1.5) 09/05/22 16:43 Total Hemoglobin 11.3 g/dL (12-16) L 09/05/22 16:43 Sodium 139.0 mmol/L (131-143) 09/05/22 16:43 Potassium 4.0 mmol/L (3.5-5.0) 09/05/22 16:43 Glucose 135.0 mg/dL (70-115) H 09/05/22 16:43 Ionized Calcium 1.2 mmol/L (1.1-1.4) 09/05/22 16:43 O2 Delivery Device Nc 09/05/22 16:43 O2 Liters/Min 2.0 % 09/05/22 16:43 FiO2 28.0 % 09/05/22 16:43 Director Funds Development ID [id number] 09/05/22 16:43 Sodium 138 mmol/L (136-145) 09/06/22 06:28 Potassium 4.3 mmol/L (3.5-5.1) 09/06/22 06:28 Chloride 102 mmol/L (98-107) 09/06/22 06:28 Carbon Dioxide 24 mmol/L (22-29) 09/06/22 06:28 Anion Gap 16.3 (5-19) 09/06/22 06:28 BUN 9 mg/dL (8-23) 09/06/22 06:28 Creatinine 0.9 mg/dL (0.5-0.9) 09/06/22 06:28 GFR Calculation Not Reportable 09/06/22 06:28 Glucose 95 mg/dL (65-115) 09/06/22 06:28 Calculated Osmolality 284 mOsm/kg (285-295) L 09/06/22 06:28 Calcium 8.8 mg/dL (8.5-10.5) 09/06/22 06:28 Total Bilirubin 0.3 mg/dL (0.15-1.2) 09/06/22 06:28 AST 27 U/L (0-32) 09/06/22 06:28 ALT 21 U/L (0-33) 09/06/22 06:28 Alkaline Phosphatase 143 U/L (35-105) H 09/06/22 06:28 Troponin T Baseline 17 ng/L (0-10) H 09/05/22 21:24 Troponin T 120 Minute 18.48 ng/L (0-10) H 09/05/22 23:23 Delta Troponin T 1.48 ABS# (0-10) 09/05/22 23:23 Troponin T Hi Sens 6Hr 26.76 ng/L (0-10) H 09/06/22 06:28 Troponin T Hi Sens 6Hr Delta 9.76 ng/L (0-12) 09/06/22 06:28 NT-Pro-B Natriuret Pep 454 pg/mL (0-450) H 09/05/22 17:24 Total Protein 6.1 g/dL (6.6-8.7) L 09/06/22 06:28 Albumin 3.4 g/dL (3.5-5.2) L 09/06/22 06:28 Globulin 2.7 g/dL (1.3-4.6) 09/06/22 06:28 A&P Assessment and plan (1) Community acquired pneumonia: admit to med/surg Start treatment with ceftriaxone. azithromyin check sputum cx, bacterial AG, legionella Ag albuterol inhalation prn supplental 02 to keep sat > 92% check orthostatics screening D dimer given new hypoxia check troponin series Attestations Medical Necessity Statement*: > 2midnight admission anticipated for iv abx, treatment of CAP Coding Level of Care Code Acute Code for [facility] Fwd Diagnoses Community acquired pneumonia J18.9
[2022-09-05 23:55] LABS: Troponin 5 2HR 18.48 ng/L (0-10)
[2022-09-05 23:56] LABS: Troponin 5 2HR Delta 1.48 ABS# (0-10)
[2022-09-06] VITALS (12 sets, daily range): BP systolic 110–151; BP diastolic 61–82; PULSE 61–88; RESP 15–20; TEMP 36.4–36.9; O2SAT 90–96
--- NOTE | 2022-09-06 03:09 | ECG_ITS ---
[facility] Test Date: 2022-09-05 Pat Name: Thelma Rubalcava Department: Room: 260 Gender: Female [place]: : 1935 Requested By: Daisy Oliver Order Number: [id number] Jose Ramon MD: Juan Crowley M.D. Measurements Intervals [place] Rate: 76 P: 10 CA: 159 QRS: -25 QRSD: 98 T: -31 QT: 374 QTc: 421 Interpretive Statements SINUS RHYTHM WITH OCCASIONAL SUPRAVENTRICULAR PREMATURE COMPLEXES LOW QRS VOLTAGE IN PRECORDIAL LEADS [QRS DEFLECTION < 1.0 mV IN CHEST LEADS] PATTERN CONSISTENT WITH PULMONARY DISEASE SEPTAL MYOCARDIAL INFARCTION , PROBABLY OLD [40+ ms Q WAVE IN V1/V2] INFERIOR MYOCARDIAL INFARCTION , OF INDETERMINATE AGE [40+ ms Q WAVE AND/OR ST/T ABNORMALITY IN II/aVF] Compared to ECG 09/05/2022 18:43:33 No significant changes Electronically Signed On 09-06-2022 18:00:47 CDT by Juan Crowley M.D. [email or web address]
[2022-09-06 06:38] LABS: Basophils # 0.1 10^3/uL (0.0-0.1); Basophils % 1.1 %; Eosinophils # 0.1 10^3/uL (0.0-0.8); Eosinophils % 1.5 %; Hematocrit 35.1 % (37.0-47.0); Hemoglobin 10.5 g/dL (11.5-15.3); Lymphocytes # 1.7 10^3/uL (0.8-4.8); Lymphocytes % 21.7 %; Mean Corpuscular HGB Conc 29.9 g/dL (30.0-36.0); Mean Corpuscular Hemoglobin 26.1 pg (28.0-34.0); Mean Corpuscular Volume 87.1 fl (81-99); Mean Platelet Volume 9.2 fL (7.4-10.4); Monocytes # 1.1 10^3/uL (0.2-0.9); Monocytes % 13.8 %; Neutrophils # 4.84 10^3/uL (1.8-7.7); Neutrophils % 61.5 %; Nucleated Red Blood Cells % 0 %; Platelet Count 230 10^3/cmm (130-400); Red Blood Count 4.03 10^6/uL (4.1-5.3); Red Cell Distribution Width 17.3 % (12.1-15.1); White Blood Count 7.9 10^3/uL (4.0-10.0)
[2022-09-06 07:00] LABS: Troponin 5 6HR 26.76 ng/L (0-10)
[2022-09-06 07:08] LABS: Troponin 5 6HR Delta 9.76 ng/L (0-12)
[2022-09-06 07:22] LABS: Alanine Aminotransferase 21 U/L (0-33); Albumin Level 3.4 g/dL (3.5-5.2); Alkaline Phosphatase 143 U/L (35-105); Anion Gap 16.3 (5-19); Aspartate Amino Transferase 27 U/L (0-32); Blood Urea Nitrogen 9 mg/dL (8-23); Calcium 8.8 mg/dL (8.5-10.5); Carbon Dioxide 24 mmol/L (22-29); Chloride 102 mmol/L (98-107); Globulin 2.7 g/dL (1.3-4.6); Glucose 95 mg/dL (65-115); Osmolality Calculated 284 mOsm/kg (285-295); Potassium 4.3 mmol/L (3.5-5.1); Sodium 138 mmol/L (136-145); Total Bilirubin 0.3 mg/dL (0.15-1.2); Total Protein 6.1 g/dL (6.6-8.7)
[2022-09-06] MEDS: azithromycin 250 mg Tablet 500 MG PO (08:48)
[2022-09-06] MEDS: pantoprazole DR 40 mg Tablet PO (08:48)
[2022-09-06] MEDS: iohexol 350 mg/mL 500 mL Btl (per mL) IV (16:17)
--- NOTE | 2022-09-06 16:17 | CTR_ITS ---
PROCEDURE INFORMATION: Exam: CTA Chest With Contrast Exam date and time: 09/06/2022 4:18 PM Age: 86 years old Clinical indication: Dyspnea; Additional info: SOB TECHNIQUE: Imaging protocol: Computed tomographic angiography of the chest with contrast. 3D rendering (Not supervised by radiologist): MIP and/or 3D reconstructed images were created by the technologist. Radiation optimization: All CT scans at this facility use at least one of these dose optimization techniques: automated exposure control; mA and/or kV adjustment per patient size (includes targeted exams where dose is matched to clinical indication); or iterative reconstruction. Contrast material: OMNI 350; Contrast volume: 100 ml; Contrast route: INTRAVENOUS (IV); REPORTING DATA: Count of CT and Cardiac NM exams in prior 12 months: This patient has received [address] and 0 known cardiac nuclear medicine studies in the 12 months prior to the current study. COMPARISON: CT angio chest PE prot [id number] 04/29/2022 5:47 PM RADIATION DOSE METRICS: Total DLP (mGy-cm): 282.72 FINDINGS: Pulmonary arteries: Normal. No pulmonary emboli. Aorta: Ascending thoracic aorta dilated to 3.4 cm. Lungs: Emphysematous changes. Bilateral largely dependent atelectasis versus infiltrate. Pleural spaces: Unremarkable. No pneumothorax. No pleural effusion. Heart: Cardiomegaly. Trace pericardial effusion. Coronary arteries: Coronary artery atherosclerotic calcifications. Lymph nodes: Unremarkable. No enlarged lymph nodes. Diaphragm: Moderate hiatal hernia. Gallbladder and bile ducts: Cholelithiasis with gallbladder wall thickening suspected, ultrasound could further evaluate this. Bones/joints: Unremarkable. No acute fracture. Soft tissues: Unremarkable. CT/CT angio chest PE protcl [id number] IMPRESSION: 1. Negative for pulmonary embolus. 2. Cardiomegaly. 3. Trace pericardial effusion. 4. Coronary artery atherosclerotic calcifications. 5. Emphysematous changes. 6. Bilateral largely dependent atelectasis versus infiltrate. 7. Moderate hiatal hernia. 8. Cholelithiasis with gallbladder wall thickening suspected, ultrasound could further evaluate this. 9. Ascending thoracic aorta dilated to 3.4 cm.
--- NOTE | 2022-09-06 17:30 | P.PN_ITS ---
Subjective Subjective: Patient was seen this morning, multiple times, including with son at bedside, she reports feeling weak, fatigue, poor appetite, no fevers, chills, does report shortness of breath is on 2 L, no abdominal pain reported, no nausea, no vomiting Vitals/I&O/Wt Last Vital Signs Temp 97.9 F 09/06/22 16:00 Pulse 86 09/06/22 16:00 Resp 16 09/06/22 16:00 BP 142/75 09/06/22 16:00 Pulse Ox 92 09/06/22 16:00 O2 Del Method Nasal Cannula 09/06/22 16:00 O2 Flow Rate 2 09/06/22 16:00 09/06/22 09/06/22 09/06/22 06:59 14:59 22:59 Intake Total 170 / 270 120 / 120 Balance 170 / 270 120 / 120 Weight last 48 hrs Weight 63.503 kg Physical Exam Const: COMMON NORMALS: no acute distress and patient oriented x3 Resp: COMMON NORMALS: normal respiratory effort, No retractions, No use of accessory muscles and clear to auscultation bilaterally AUSCULTATION: clear to auscultation bilaterally Cardio: COMMON NORMALS: regular rate, regular rhythm, S1 normal heart sound present and S2 normal heart sound present RATE: regular rate RHYTHM: regular rhythm HEART SOUNDS: S1 normal heart sound present and S2 normal heart sound present GI: COMMON NORMALS: Normal to inspection, nondistended, normoactive bowel so unds present and non-tender Extremity: COMMON NORMALS: no pedal edema Neuro: COMMON NORMALS: patient oriented x3 Psych: COMMON NORMALS: mental status grossly normal Data 09/06/22 06:28 09/06/22 06:28 Micro: Microbiology 09/05/22 18:20 Blood Culture - Preliminary Blood SPECIMEN COLLECTED 09/05/22 18:09 Blood Culture - Preliminary Blood SPECIMEN COLLECTED A&P Assessment and plan (1) Community acquired pneumonia: admit to med/surg Start treatment with ceftriaxone. azithromyin check sputum cx, bacterial AG, legionella Ag albuterol inhalation prn supplental 02 to keep sat > 92% check orthostatics (2) Cholecystitis: - CT angiogram of the chest showed cholelithiasis with gallbladder wall thickening -She has no abdominal pain complaints, alk phos is elevated -Will order gallbladder ultrasound repeat liver function studies tomorrow morning (3) NSTEMI (non-ST elevated myocardial infarction): - Serial EKGs, serial troponins, telemetry monitoring -Does have evidence of fluid overload we will hold off on Lasix for today -Cardiac echo -Telemetry monitoring Plan Plan for today CT of the chest ordered, echocardiogram, gallbladder ultrasound, continue antibiotic therapy Spoke to patient Spoke to son Spoke to nursing staff Attestations Medical Necessity Statement*: Patient requires hospitalization for community-acquired pneumonia, cholecystitis, NSTEMI Diagnoses Community acquired pneumonia J18.9 Cholecystitis K81.9 NSTEMI (non-ST elevated myocardial infarction) I21.4
--- NOTE | 2022-09-06 17:30 | US_ITS ---
WS: [id number] RIGHT UPPER QUADRANT ULTRASOUND HISTORY: cholecystitis COMPARISON: None available. Liver: 12.9 cm in length. Normal size liver and echogenicity. No bile duct dilatation or mass. Portal Vein: Normal hepatopetal flow with monophasic waveform. Gallbladder: Normal gallbladder. Bladder is normally distended but filled with sludge and small stone s with shadowing. Diffuse gallbladder wall thickening measuring up to 6 mm. No pericholecystic fluid. CBD: 0.5 cm Pancreas: Normal size and echogenicity. Right kidney: 8.9 cm in length. Normal size and echogenicity. No hydronephrosis or mass. Aorta and IVC: Unremarkable abdominal aorta and IVC. No ascites. US/US gall bladder [id number] IMPRESSION: 1. Abnormal gallbladder. Findings of acute cholecystitis. Sludge-filled gallbl adder with stones or wall thickening. 2. Common bile duct is not dilated.
--- NOTE | 2022-09-06 17:33 | USCV_ITS ---
Singer, [place] Age: 86 Gender: F : 1935 Exam Date: 09/06/2022 20:12 Ordering Phys: Faisal Covington MD Technologist: KASANDRA Exam Location: [facility] [place] Indication: SOB, history of CAD s/p 5 cardiac stents, hx GA. BP: 142 / 75 HR: 77 Rhythm: mostly Sinus rhythm with strings of Afib Technical Quality: Adequate MEASUREMENTS (Male / Female) Normal Values 2D ECHO LV Diastolic Diameter PLAX 3.5 cm 4.2 - 5.9 / 3.9 - 5.3 cm LV Systolic Diameter PLAX 2.2 cm IVS Diastolic Thickness 1.6 cm 0.6 - 1.0 / 0.6 - 0.9 cm IVS Systolic Thickness 2.2 cm LVPW Diastolic Thickness 0.8 cm 0.6 - 1.0 / 0.6 - 0.9 cm LVPW Systolic Thickness 1.3 cm LVOT Diameter 1.8 cm LV Ejection Fraction 2D Teich 65.8 % LV Ejection Fraction MOD 2C 64.4 % LV Ejection Fraction 2C AL 66.8 % LA Diameter 4.3 cm LA Width 4.4 cm LA Height 5.5 cm RA Width 3.8 cm RA Height 4.1 cm Aorta at Sinotubular Diameter 2.5 cm IVC Diameter 1.4 cm M-MODE Aortic Annulus Diameter 2.6 cm LA Ao Ratio MM 1.8 MV E Point Septal Separation 0.4 cm DOPPLER AV Peak Velocity 191.0 cm/s LVOT Peak Velocity 72.0 cm/s AV Area Cont Eq vti 1.0 cm squared AV Area Cont Eq pk 1.0 cm squared MV Area PHT 2.8 cm squared Mitral E to A Ratio 0.5 MV E' Velocity 32.0 cm/s Mitral E to MV E' Ratio 10.7 Mitral E to LV E' Lateral Ratio 9.3 Mitral E to LV E' Septal Ratio 12.9 TR Peak Velocity 280.5 cm/s TR Peak Gradient 31.5 mmHg TV Peak E Velocity 41.0 cm/s Right Atrial Pressure 5.0 mmHg Pulmonary Artery Systolic Pressu 36.5 mmHg PV Peak Velocity 84.0 cm/s RV Acceleration Time 0.1 s RV Ejection Time 0.3 s RV AcT/ET 0.3 FINDINGS Left Ventricle Normal left ventricular size and systolic function, EF 63 %. No regional wall motion abnormalities. Grade I/IV diastolic dysfunction (abnormal relaxation filling pattern), normal to mildly elevated filling pressures. Right Ventricle The right ventricle is normal in size and function. Right Atrium Normal right atrial size. Left Atrium Moderately increased left atrial size. Mitral Valve Thickened mitral valve. Mild mitral annular calcification. Mild mitral valve regurgitation. Aortic Valve Thickened aortic valve. Trace aortic valve regurgitation. Tricuspid Valve Moderate tricuspid valve regurgitation. Pulmonic Valve No gross abnormalities noted Pericardium Normal pericardium without effusion. Aorta Normal ascending aorta dimension. IVC The inferior vena cava appears normal. CONCLUSIONS Normal left ventricular size and systolic function, EF 63 %. No regional wall motion abnormalities. Grade I/IV diastolic dysfunction (abnormal relaxation filling pattern), normal to mildly elevated filling pressures. Moderately increased left atrial size. Thickened mitral valve. Mild mitral annular calcification. Mild mitral valve regurgitation. Thickened aortic valve. Trace aortic valve regurgitation. Moderate tricuspid valve regurgitation. Estimated pulmonary artery peak systolic pressure 37 mmHg There is no pericardial effusion. There are no intracardiac masses. Compared to the study from 08/19/2015, there may not be a significant change Dr Ryanne Rodriguez MD [facility] (Electronically Signed) Final Date: 07 Sep 2022 13:58 S
[2022-09-06] MEDS: cefTRIAXone 1,000 MG in sodium chloride 0.9% (plus) 50 ML 100 MG IV (21:08)
[2022-09-06] MEDS: enoxaparin 40 mg/0.4 mL Syringe SUBCUT (21:08)
[2022-09-06 23:13] LABS: Add Urine Microscopic? NO; Charge for UA Resulting for Rev
[2022-09-06 23:23] LABS: Urine Appearance Clear (CLEAR); Urine Color Yellow (Yellow)
[2022-09-06 23:24] LABS: Bilirubin Urine Neg (Negative); Blood Urine Neg (Negative); Glucose Urine UA Norm (Normal); Ketones Urine Negative (Negative); Leukocyte Esterase Urine Negative (Negative); Nitrate Urine Negative (Negative); Protein Urine Neg (Negative); Specific Gravity, Urine 1.005 (1.005-1.030); Urobilinogen Urine Neg (Negative); pH Urine 7 (5-7)
[2022-09-07] VITALS (10 sets, daily range): BP systolic 111–152; BP diastolic 69–82; PULSE 60–70; RESP 15–19; TEMP 36.2–36.6; O2SAT 92–98
[2022-09-07 04:13] LABS: Basophils # 0.1 10^3/uL (0.0-0.1); Basophils % 1.2 %; Eosinophils # 0.3 10^3/uL (0.0-0.8); Eosinophils % 2.9 %; Hematocrit 36.7 % (37.0-47.0); Hemoglobin 11.1 g/dL (11.5-15.3); Lymphocytes # 2.6 10^3/uL (0.8-4.8); Lymphocytes % 25.9 %; Mean Corpuscular HGB Conc 30.2 g/dL (30.0-36.0); Mean Corpuscular Hemoglobin 26.2 pg (28.0-34.0); Mean Corpuscular Volume 86.8 fl (81-99); Mean Platelet Volume 9.2 fL (7.4-10.4); Monocytes # 1.2 10^3/uL (0.2-0.9); Monocytes % 12.3 %; Neutrophils # 5.71 10^3/uL (1.8-7.7); Neutrophils % 57.3 %; Nucleated Red Blood Cells % 0 %; Platelet Count 238 10^3/cmm (130-400); Red Blood Count 4.23 10^6/uL (4.1-5.3); Red Cell Distribution Width 17.2 % (12.1-15.1)
[2022-09-07 04:43] LABS: Magnesium 1.8 mg/dL (1.7-2.3)
[2022-09-07 04:45] LABS: Gamma Glutamyl Transferase 82 U/L (5-36)
[2022-09-07 04:48] LABS: Alanine Aminotransferase 25 U/L (0-33); Albumin Level 3.5 g/dL (3.5-5.2); Alkaline Phosphatase 146 U/L (35-105); Anion Gap 15.5 (5-19); Aspartate Amino Transferase 46 U/L (0-32); Blood Urea Nitrogen 11 mg/dL (8-23); Carbon Dioxide 24 mmol/L (22-29); Chloride 105 mmol/L (98-107); Globulin 2.8 g/dL (1.3-4.6); Glucose 105 mg/dL (65-115); Lipase 17 U/L (13-60); NT Pro B Type Natriuretic Pept 862 pg/mL (0-450); Osmolality Calculated 290 mOsm/kg (285-295); Potassium 4.5 mmol/L (3.5-5.1); Sodium 140 mmol/L (136-145); Total Bilirubin 0.2 mg/dL (0.15-1.2); Total Protein 6.3 g/dL (6.6-8.7)
[2022-09-07] MEDS: azithromycin 250 mg Tablet 500 MG PO (08:46)
[2022-09-07] MEDS: pantoprazole DR 40 mg Tablet PO (08:46)
[2022-09-07] MEDS: ondansetron 2 mg/ML SDV 2 mL 4 MG IVP ×2 (10:21→22:02)
[2022-09-07] MEDS: piperacillin-tazobactam 3.375 GM in sodium chloride 0.9% (plus) 50 ML IV ×2 (10:21→17:32)
--- NOTE | 2022-09-07 17:28 | PM.PN ---
Subjective Subjective: I had an extensive meeting with patient and her son at bedside today, patient tells me that she has dementia, she was at [facility], but he was not impressed with their care so he moved her to [place], at [place] her memory has been declining, she is alert to person, not place, not to time, she is quite forgetful and her memory has been declining, he often has to repeat herself, he tells me that whenever I come in the room and I discussed her plan of care with her she tends to forget and asks him what is going on, and then gets upset why the doctors not talking to her, he tells me that she is quite forgetful, which is her baseline, she has been chronically complaining of nausea, she tries to stick to a low-fat diet and this is always the way that she has been, I did discuss her gallbladder, acute cholecystitis, he wants us to avoid surgery is much as we can, given her underlying dementia and her declining functional status, patient is alert to person, place, time she does complain of nausea had nausea this morning, he is tender in the right upper quadrant, no fevers reported, no chest pain reported Vitals/I&O/Wt Last Vital Signs Temp 97.9 F 09/07/22 15:34 Pulse 68 09/07/22 15:34 Resp 18 09/07/22 15:34 BP 111/69 09/07/22 15:34 Pulse Ox 97 09/07/22 15:34 O2 Del Method Nasal Cannula 09/07/22 15:34 O2 Flow Rate 2 09/07/22 15:34 09/07/22 09/07/22 09/07/22 06:59 14:59 22:59 Intake Total 120 / 290 170 / 170 Output Total 350 / 650 Balance -230 / -360 170 / 170 Physical Exam Const: COMMON NORMALS: no acute distress Resp: COMMON NORMALS: normal respiratory effort, No retractions, No use of accessory muscles and clear to auscultation bilaterally AUSCULTATION: clear to auscultation bilaterally Cardio: COMMON NORMALS: regular rate, regular rhythm, S1 normal heart sound present and S2 normal heart sound present RATE: regular rate RHYTHM: regular rhythm HEART SOUNDS: S1 normal heart sound present and S2 normal heart sound present GI: COMMON NORMALS: Normal to inspection, nondistended, normoactive bowel sounds present PALPATION: Yes Tenderness to palpation present (GI) Details: RUQ Extremity: COMMON NORMALS: no calf tenderness and no pedal edema Psych: COMMON NORMALS: mental status grossly normal Data 09/07/22 03:50 09/07/22 03:50 Micro: Microbiology 09/06/22 21:15 Legionella Urinary Antigen - Final Urine,Voided 09/05/22 18:20 Blood Culture - Preliminary Blood NEGATIVE TO DATE 09/05/22 18:09 Blood Culture - Preliminary Blood NEGATIVE TO DATE A&P Assessment and plan (1) Community acquired pneumonia: admit to med/surg coutinue with with ceftriaxone. azithromyin check sputum cx, bacterial AG, legionella Ag albuterol inhalation prn supplental 02 to keep sat > 92% check orthostatics (2) Cholecystitis: -Son tells me that she has been chronically complaining of nausea, -Possibly acute on chronic cholecystitis - CT angiogram of the chest showed cholelithiasis with gallbladder wall thickening -She has no abdominal pain complaints, alk phos is elevated -Gallbladder ultrasound -1.? Abnormal gallbladder. Findings of acute cholecystitis. Sludge-filled gallbladder with stones or wall thickening. 2.? Common bile duct is not dilated. -It is tender right upper quadrant -Spoke to patient son, discussed that her acute cholecystitis, risk of gallbladder rupture, risk of morbidity mortality risk of sepsis however he would like us to avoid surgery is much as we could -We will broaden antibiotic coverage to Zosyn -I spoke to general surgery, they advised that a trial of antibiotic therapy is very reasonable, have patient follow-up as outpatient if any to let them know (3) NSTEMI (non-ST elevated myocardial infarction): - Serial EKGs, serial troponins, telemetry monitoring -Does have evidence of fluid overload we will hold off on Lasix for today -Cardiac echo Normal left ventricular size and systolic function, EF 63 %. No ?regional wall motion abnormalities. Grade I/IV diastolic ?dysfunction (abnormal relaxation filling pattern), normal to ?mildly elevated filling pressures. ?Moderately increased left atrial size. ?Thickened mitral valve. Mild mitral annular calcification. Mild ?mitral valve regurgitation. ?Thickened aortic valve. Trace aortic valve regurgitation. ?Moderate tricuspid valve regurgitation. ?Estimated pulmonary artery peak systolic pressure 37 mmHg ?There is no pericardial effusion. ?There are no intracardiac masses. ?Compared to the study from 08/19/2015, there may not be a ?significant change -Telemetry monitoring (4) Dementia: - Has a history of dementia -Short-term memory loss, long-term memory loss -Son tells me that its been progressive for the last few months Plan Plan for today up out of bed, PT OT, continue Zosyn, discussed with general surgery, had family meeting with patient's son Spoke to patient Spoke to son Spoke to nursing staff Attestations Medical Necessity Statement*: Patient requires hospitalization, for pneumonia, acute cholecystitis, NSTEMI Coding Level of Care Code 12515 High Time for a total of 70 minutes, includes reviewing past or interval history, examining/interviewing patient, placing orders, counseling patient/family/other support, updating patient/family/other support, discussing plan of care with staff, communicating with other healthcare providers, documenting encounter and coordinating care Diagnoses Community acquired pneumonia J18.9 Cholecystitis K81.9 NSTEMI (non-ST elevated myocardial infarction) I21.4 Dementia F03.90
[2022-09-07] MEDS: enoxaparin 40 mg/0.4 mL Syringe SUBCUT (21:28)
[2022-09-07] MEDS: lanolin oint 7 gm 1 APPLIC TOPICAL (21:30)
[2022-09-08] VITALS (9 sets, daily range): BP systolic 92–134; BP diastolic 53–70; PULSE 52–81; RESP 16–18; TEMP 36.3–36.7; O2SAT 93–99
[2022-09-08] MEDS: piperacillin-tazobactam 3.375 GM in sodium chloride 0.9% (plus) 50 ML IV ×3 (01:44→17:11)
[2022-09-08 02:28] LABS: Basophils # 0.1 10^3/uL (0.0-0.1); Basophils % 1.2 %; Eosinophils # 0.4 10^3/uL (0.0-0.8); Hemoglobin 11.3 g/dL (11.5-15.3); Lymphocytes % 22.9 %; Mean Corpuscular HGB Conc 30.5 g/dL (30.0-36.0); Mean Corpuscular Volume 85.3 fl (81-99); Mean Platelet Volume 9.8 fL (7.4-10.4); Monocytes # 1.2 10^3/uL (0.2-0.9); Monocytes % 13.4 %; Neutrophils # 5.13 10^3/uL (1.8-7.7); Nucleated Red Blood Cells % 0 %; Platelet Count 267 10^3/cmm (130-400); Red Blood Count 4.34 10^6/uL (4.1-5.3); White Blood Count 8.8 10^3/uL (4.0-10.0)
[2022-09-08 02:56] LABS: Alanine Aminotransferase 17 U/L (0-33); Albumin Level 3.4 g/dL (3.5-5.2); Alkaline Phosphatase 135 U/L (35-105); Anion Gap 13.8 (5-19); Aspartate Amino Transferase 20 U/L (0-32); Blood Urea Nitrogen 12 mg/dL (8-23); C Reactive Protein 4.6 mg/L (0.0-4.9); Calcium 8.8 mg/dL (8.5-10.5); Carbon Dioxide 25 mmol/L (22-29); Chloride 103 mmol/L (98-107); Glucose 95 mg/dL (65-115); Osmolality Calculated 286 mOsm/kg (285-295); Potassium 3.8 mmol/L (3.5-5.1); Sodium 138 mmol/L (136-145); Total Bilirubin 0.3 mg/dL (0.15-1.2); Total Protein 6.4 g/dL (6.6-8.7)
[2022-09-08 02:58] LABS: Magnesium 1.8 mg/dL (1.7-2.3)
[2022-09-08 03:02] LABS: NT Pro B Type Natriuretic Pept 752 pg/mL (0-450); Procalcitonin 0.04 ng/mL (0-0.5)
[2022-09-08] MEDS: pantoprazole DR 40 mg Tablet PO (08:48)
[2022-09-08] MEDS: FUROsemide 10 mg/mL SDV 2mL 20 MG IVP (10:15)
--- NOTE | 2022-09-08 13:25 | PC.SOCIAL ---
Pg 2 IMM Explained to pt & pt's son Pg 2 IMM. No questions voiced. Provided pt a copy. Initialed, dated, & timed a copy & placed in chart.
[2022-09-08] MEDS: metoclopramide 5 mg/mL SDV 2 mL IVP (14:45)
--- NOTE | 2022-09-08 14:57 | PC.NURSE ---
Upon administration of Metoclopramide, it was noted that IV to left AC was leaking with saline flush. No swelling was noted with flushing, no pain reported, only leaking. I removed the Venaguard and assessed the insertion site closely, noting that catheter was slightly out of the skin. I advanced the catheter with no increased discomfort, flushed the catheter again with no leaking noted. I placed a new Venaguard and labeled with insertion date of 09/07 and dressing change date of 09/08. I informed Dipti Muse LPN of issue.
--- NOTE | 2022-09-08 14:58 | P.PN_ITS ---
Subjective Subjective: Patient was seen this morning, son at bedside, extensive meeting with patient's son, specification manager, patient, she reports poor appetite, she has not gotten up out of bed, son is quite concerned as ST to her she was ambulating, she has been hearing that, she has been more confused, no fevers or night, chills she is alert to person, not to place, to time she follows commands no facial droop no slurring of her words, she does not really complain of abdominal pain, her breakfast is beside her she has not really eaten breakfast she tells me that she had a good dinner last night but she does remember what it was, had extensive discussion with son at bedside about deconditioning, protein calorie mal nutrition, especially with her prolonged hospitalization with her acute cholecystitis, and her pneumonia son again is not very keen on her having surgery is wondering if we can just manage her with antibiotic treatments with her advanced dementia I discussed with him the discussion had with surgery yesterday which antibiotics are reasonable but there is a morbidity mortality associated with acute cholecystitis, septicemia, gallbladder rupture, he voiced understanding, all questions answered Vitals/I&O/Wt Last Vital Signs Temp 97.6 F 09/08/22 11:46 Pulse 65 09/08/22 11:46 Resp 16 09/08/22 11:46 BP 96/60 09/08/22 11:46 Pulse Ox 93 09/08/22 11:46 O2 Del Method Nasal Cannula 09/08/22 11:46 O2 Flow Rate 2 09/08/22 11:46 09/07/22 09/08/22 09/08/22 22:59 06:59 14:59 Intake Total 290 / 460 50 / 510 50 / 50 Balance 290 / 460 50 / 510 50 / 50 Physical Exam Const: COMMON NORMALS: no acute distress Resp: COMMON NORMALS: normal respiratory effort, No retractions, No use of accessory muscles and clear to auscultation bilaterally AUSCULTATION: clear to auscultation bilaterally Cardio: COMMON NORMALS: regular rate, regular rhythm, S1 normal heart sound present and S2 normal heart sound present RATE: regular rate RHYTHM: regular rhythm HEART SOUNDS: S1 normal heart sound present and S2 normal heart sound present GI: COMMON NORMALS: Normal to inspection, nondistended, normoactive bowel sounds present and non-tender Extremity: COMMON NORMALS: no pedal edema Data 09/08/22 01:53 09/08/22 01:53 A&P Assessment and plan (1) Community acquired pneumonia: admit to med/surg coutinue with with ceftriaxone. azithromyin check sputum cx, bacterial AG, legionella Ag albuterol inhalation prn supplental 02 to keep sat > 92% (2) Cholecystitis: -Son tells me that she has been chronically complaining of nausea, -Possibly acute on chronic cholecystitis - CT angiogram of the chest showed cholelithiasis with gallbladder wall thickening -She has no abdominal pain complaints, alk phos is elevated -Gallbladder ultrasound -1.? Abnormal gallbladder. Findings of acute cholecystitis. Sludge-filled gallbladder with stones or wall thickening. 2.? Common bile duct is not dilated. -It is tender right upper quadrant -Spoke to patient son, discussed that her acute cholecystitis, risk of gallbladder rupture, risk of morbidity mortality risk of sepsis however he would like us to avoid surgery is much as we could -We will broaden antibiotic coverage to Zosyn -I spoke to general surgery, they advised that a trial of antibiotic therapy is very reasonable, have patient follow-up as outpatient if any to let them know -Patient son is agreeable and wants us to just do new antibiotic treatment for her acute cholecystitis, understands morbidity and mortality associated with acute cholecystitis, gallbladder rupture, septicemia, however wants to manage medically, discussed risk of benefits, all questions answered, agreed to proceed (3) NSTEMI (non-ST elevated myocardial infarction): - Serial EKGs, serial troponins, telemetry monitoring -Does have evidence of fluid overload we will hold off on Lasix for today -Cardiac echo Normal left ventricular size and systolic function, EF 63 %. No ?regional wall motion abnormalities. Grade I/IV diastolic ?dysfunction (abnormal relaxation filling pattern), normal to ?mildly elevated filling pressures. ?Moderately increased left atrial size. ?Thickened mitral valve. Mild mitral annular calcification. Mild ?mitral valve regurgitation. ?Thickened aortic valve. Trace aortic valve regurgitation. ?Moderate tricuspid valve regurgitation. ?Estimated pulmonary artery peak systolic pressure 37 mmHg ?There is no pericardial effusion. ?There are no intracardiac masses. ?Compared to the study from 08/19/2015, there may not be a ?significant change -Telemetry monitoring (4) Dementia: - Has a history of dementia -Short-term memory loss, long-term memory loss -Son tells me that its been progressive for the last few months (5) Physical deconditioning: Plan Plan for today up out of bed, PT OT, continue Zosyn, discussed with son, had family meeting with case management, 1 dose Lasix today, up out of bed, on 2 L, Spoke to patient Spoke to son Spoke to nursing staff Attestations Medical Necessity Statement*: Patient requires hospitalization for acute cholecystitis, pneumonia, now with deconditioning Diagnoses Community acquired pneumonia J18.9 Cholecystitis K81.9 NSTEMI (non-ST elevated myocardial infarction) I21.4 Dementia F03.90 Physical deconditioning R53.81
[2022-09-08] MEDS: enoxaparin 40 mg/0.4 mL Syringe SUBCUT (21:45)
[2022-09-09] VITALS (10 sets, daily range): BP systolic 108–168; BP diastolic 64–84; PULSE 58–84; RESP 16–18; TEMP 36.3–36.9; O2SAT 93–99
[2022-09-09] MEDS: piperacillin-tazobactam 3.375 GM in sodium chloride 0.9% (plus) 50 ML IV ×3 (01:33→17:47)
[2022-09-09 06:05] LABS: Basophils # 0.1 10^3/uL (0.0-0.1); Basophils % 1.3 %; Eosinophils # 0.5 10^3/uL (0.0-0.8); Eosinophils % 4.9 %; Hematocrit 36.7 % (37.0-47.0); Hemoglobin 11.3 g/dL (11.5-15.3); Lymphocytes % 19.1 %; Mean Corpuscular HGB Conc 30.8 g/dL (30.0-36.0); Mean Corpuscular Hemoglobin 26.5 pg (28.0-34.0); Mean Corpuscular Volume 86.2 fl (81-99); Mean Platelet Volume 9.5 fL (7.4-10.4); Monocytes # 1.3 10^3/uL (0.2-0.9); Monocytes % 12.8 %; Neutrophils # 6.39 10^3/uL (1.8-7.7); Neutrophils % 61.4 %; Nucleated Red Blood Cells % 0 %; Platelet Count 256 10^3/cmm (130-400); Red Blood Count 4.26 10^6/uL (4.1-5.3); White Blood Count 10.4 10^3/uL (4.0-10.0)
[2022-09-09 07:17] LABS: Alanine Aminotransferase 13 U/L (0-33); Albumin Level 3.5 g/dL (3.5-5.2); Alkaline Phosphatase 128 U/L (35-105); Anion Gap 15.6 (5-19); Aspartate Amino Transferase 15 U/L (0-32); Blood Urea Nitrogen 17 mg/dL (8-23); C Reactive Protein 5.4 mg/L (0.0-4.9); Calcium 8.7 mg/dL (8.5-10.5); Carbon Dioxide 27 mmol/L (22-29); Chloride 98 mmol/L (98-107); Globulin 2.9 g/dL (1.3-4.6); Glucose 108 mg/dL (65-115); Osmolality Calculated 286 mOsm/kg (285-295); Phosphorus 4.3 mg/dL (2.5-4.5); Potassium 3.6 mmol/L (3.5-5.1); Sodium 137 mmol/L (136-145); Total Bilirubin 0.3 mg/dL (0.15-1.2); Total Protein 6.4 g/dL (6.6-8.7)
[2022-09-09 07:41] LABS: NT Pro B Type Natriuretic Pept 354 pg/mL (0-450); Procalcitonin 0.05 ng/mL (0-0.5)
[2022-09-09 07:56] LABS: Magnesium 1.9 mg/dL (1.7-2.3)
[2022-09-09] MEDS: pantoprazole DR 40 mg Tablet PO (08:28)
[2022-09-09] MEDS: ondansetron 2 mg/ML SDV 2 mL 4 MG IVP (09:54)
--- NOTE | 2022-09-09 11:05 | PM.PN ---
Subjective Subjective: Patient was seen this morning, son at bedside, had extensive family meeting with her and her son, she does not remember having physical therapy yesterday, but I reviewed the notes with nursing staff and son at bedside, she has had poor strength, poor balance, at [place] she was ambulating in a walker, they do have physical therapy there is a son tells me, he is does not really want her to go to [place] where she was originally at, her appetite is improving, she did have much more of her breakfast, she does become orthostatic, with getting up, she does report dizziness, no facial droop that I could discern no slurring of words, no focal weakness that I could discern, but with my discussion with physical therapy, she does have a lot of imbalance, Vitals/I&O/Wt Last Vital Signs Temp 98.1 F 09/09/22 08:00 Pulse 65 09/09/22 08:00 Resp 18 09/09/22 08:00 BP 121/66 09/09/22 08:00 Pulse Ox 94 09/09/22 08:00 O2 Del Method Room Air 09/09/22 08:00 O2 Flow Rate 2 09/09/22 08:00 09/08/22 09/09/22 09/09/22 22:59 06:59 14:59 Intake Total 50 / 460 50 / 510 360 / 360 Output Total 200 / 200 Balance 50 / 460 50 / 510 160 / 160 Physical Exam Const: COMMON NORMALS: no acute distress ORIENTATION/CONSCIOUSNESS: Yes awake, Yes oriented to person and Yes oriented to place; not oriented to time Resp: COMMON NORMALS: normal respiratory effort, No retractions, No use of accessory muscles and clear to auscultation bilaterally AUSCULTATION: clear to auscultation bilaterally Cardio: COMMON NORMALS: regular rate, regular rhythm, S1 normal heart sound present and S2 normal heart sound present RATE: regular rate RHYTHM: regular rhythm HEART SOUNDS: S1 normal heart sound present and S2 normal heart sound present GI: COMMON NORMALS: Normal to inspection, nondistended, normoactive bowel sounds present and non-tender Extremity: COMMON NORMALS: no pedal edema Neuro: COMMON NORMALS: CN's II-XII intact bilaterally, moves all extremities and no focal motor deficits SENSORIUM/ORIENTATION: Yes oriented to person, Yes oriented to place and No oriented to time Data 09/09/22 05:50 09/09/22 05:04 A&P Assessment and plan (1) Community acquired pneumonia: admit to med/surg coutinue with with Zosyn check sputum cx, bacterial AG, legionella Ag albuterol inhalation prn supplental 02 to keep sat > 92% (2) Cholecystitis: -Son tells me that she has been chronically complaining of nausea, -Possibly acute on chronic cholecystitis - CT angiogram of the chest showed cholelithiasis with gallbladder wall thickening -She has no abdominal pain complaints, alk phos is elevated -Gallbladder ultrasound -1.? Abnormal gallbladder. Findings of acute cholecystitis. Sludge-filled gallbladder with stones or wall thickening. 2.? Common bile duct is not dilated. -It is tender right upper quadrant -Spoke to patient son, discussed that her acute cholecystitis, risk of gallbladder rupture, risk of morbidity mortality risk of sepsis however he would like us to avoid surgery is much as we could -We will broaden antibiotic coverage to Zosyn -I spoke to general surgery, they advised that a trial of antibiotic therapy is very reasonable, have patient follow-up as outpatient if any to let them know -Patient son is agreeable and wants us to just do new antibiotic treatment for her acute cholecystitis, understands morbidity and mortality associated with acute cholecystitis, gallbladder rupture, septicemia, however wants to manage medically, discussed risk of benefits, all questions answered, agreed to proceed (3) NSTEMI (non-ST elevated myocardial infarction): - Serial EKGs, serial troponins, telemetry monitoring -Does have evidence of fluid overload we will hold off on Lasix for today -Cardiac echo Normal left ventricular size and systolic function, EF 63 %. No ?regional wall motion abnormalities. Grade I/IV diastolic ?dysfunction (abnormal relaxation filling pattern), normal to ?mildly elevated filling pressures. ?Moderately increased left atrial size. ?Thickened mitral valve. Mild mitral annular calcification. Mild ?mitral valve regurgitation. ?Thickened aortic valve. Trace aortic valve regurgitation. ?Moderate tricuspid valve regurgitation. ?Estimated pulmonary artery peak systolic pressure 37 mmHg ?There is no pericardial effusion. ?There are no intracardiac masses. ?Compared to the study from 08/19/2015, there may not be a ?significant change -Telemetry monitoring (4) Dementia: - Has a history of dementia -Short-term memory loss, long-term memory loss -Son tells me that its been progressive for the last few months (5) Physical deconditioning: (6) Dizziness: - Etiology of dizziness unclear at this time -Possibly secondary to pneumonia, acute cholecystitis, dehydration -And deconditioning -She is orthostatic, some of that might be dehydration, and the infection that she is having we will monitor -Rule out posterior circulation stroke we will do a CT head, carotid artery ultrasound -Continue PT OT -Monitor orthostatic vitals (7) Orthostatic hypotension: Plan Plan for today up out of bed, PT OT, continue Zosyn, family meeting with son, spoke to physical therapy staff, I will order carotid artery ultrasound, CT of the head, repeat orthostatic vitals, encourage patient to get out of out of bed Spoke to patient Spoke to son Spoke to nursing staff Spoke to physical therapy Attestations Medical Necessity Statement*: Patient requires hospitalization for recurrent dizziness, orthostatic hypotension, acute cholecystitis, pneumonia, deconditioning, with underlying dementia and High Time for a total of 60 minutes, includes reviewing past or interval history, examining/interviewing patient, placing orders, counseling patient/family/other support, updating patient/family/other support, discussing plan of care with staff, communicating with other healthcare providers, documenting encounter and coordinating care Diagnoses Community acquired pneumonia J18.9 Cholecystitis K81.9 NSTEMI (non-ST elevated myocardial infarction) I21.4 Dementia F03.90 Physical deconditioning R53.81 Dizziness R42 Orthostatic hypotension I95.1
--- NOTE | 2022-09-09 11:06 | CTR_ITS ---
PROCEDURE INFORMATION: Exam: CT Head Without Contrast Exam date and time: 09/10/2022 9:55 AM Age: 86 years old Clinical indication: Dizziness; Additional info: Recurrent fall, dizzynes, R/O CVA TECHNIQUE: Imaging protocol: Computed tomography of the head without contrast. Radiation optimization: All CT scans at this facility use at least one of these dose optimization techniques: automated exposure control; mA and/or kV adjustment per patient size (includes targeted exams where dose is matched to clinical indication); or iterative reconstruction. REPORTING DATA: Count of CT and Cardiac NM exams in prior 12 months: This patient has received 2 known CTs and 0 known cardiac nuclear medicine studies in the 12 months prior to the current study. COMPARISON: US CV carotid duplex BI* [id number] 09/09/2022 4:10 PM RADIATION DOSE METRICS: Total DLP (mGy-cm): 1087.33 FINDINGS: Brain: Mildly prominent brain sulci seen, related to the patient's age. Associated moderate to severe nonspecific periventricular white matter low attenuation areas. There are no intracranial masses, mass effect or midline shift. There is no cerebral edema. There is no subarachnoid hemorrhage. There are no intra-or extra-axial fluid collections, intraventricular or intraparenchymal hemorrhage. Cerebral ventricles: Phul-ch-nalybofodo dilated ventricles are seen. This may be related to the generalized brain parenchymal atrophy or could be related to normal pressure hydrocephalus. Recommend correlation with clinical exam findings and neurological findings. CSF nuclear cisternogram may be performed for complete assessment, if there is clinical concern. The suprasellar and basilar cisterns appear unremarkable. Paranasal sinuses: The visualized sinuses are unremarkable. Mastoid air cells: The visualized mastoids are unremarkable. Orbital cavities: The visualized orbits are unremarkable. Bones/joints: No definite acute osseous or skull abnormalities seen. Soft tissues: Unremarkable. Notes: If there is further clinical concern for intracranial pathology, MRI of the brain may be performed for further assessment. CT/CT head wo con* [id number] IMPRESSION: 1. No non-contrast CT evidence of intracranial hemorrhage, masses or subacute stroke. 2. Mild to moderately dilated ventricles are seen. This may be related to the generalized brain parenchymal atrophy or could be related to normal pressure hydrocephalus. Recommend correlation with clinical exam findings and neurological findings. CSF nuclear cisternogram may be performed for complete assessment, if there is clinical concern.
--- NOTE | 2022-09-09 11:07 | USR_ITS ---
PROCEDURE INFORMATION: Exam: US Duplex Bilateral Extracranial Arteries; Complete; Carotid Arteries Exam date and time: 09/09/2022 4:10 PM Age: 86 years old Clinical indication: Dizziness; Additional info: Dizzyness TECHNIQUE: Imaging protocol: Real-time duplex ultrasound scan of the bilateral extracranial arteries combining green scale, color Doppler and spectral waveform analysis with image documentation. Complete exam. Exam focused on the carotid arteries. COMPARISON: CT angio chest PE protcl [id number] 09/06/2022 4:18 PM FINDINGS: Right common carotid artery: Mild diffuse intimal thickening. No occlusion or stenosis. Waveforms are normal. Right internal carotid artery: Irregular calcified plaque in the right carotid bulb/proximal ICA resulting in mild stenosis, less than 50% with peak velocity of 83/20 cm/s. Waveforms are normal. Right ICA/CCA ratio: Within normal limits. Right external carotid artery: No stenosis in the origin. Right vertebral artery: Unremarkable. Antegrade flow. Left common carotid artery: Mild diffuse intimal thickening. No occlusion or stenosis. Waveforms are normal. Left internal carotid artery: Irregular calcified plaque in the left carotid bulb/proximal ICA resulting in mild stenosis, less than 50% with peak velocity of 95/11 cm/s. Waveforms are normal. Left ICA/CCA ratio: Within normal limits. Left external carotid artery: No stenosis in the origin. Left vertebral artery: Unremarkable. Antegrade flow. US/CV carotid duplex BI* [id number] IMPRESSION: 1. Mild diffuse intimal thickening and scattered calcified plaques as described. 2. No hemodynamically significant stenosis on either side. REFERENCES: SRU CRITERIA. The degree of internal carotid artery stenosis is based on criteria defined by the Society of [employer]iologists in Ultras[employer] (SRU). Normal is no stenosis. Mild is less than 50% stenosis. Moderate is 50-69% stenosis. Severe is greater than 69% stenosis to near occlusion. Near occlusion is a markedly narrowed lumen. Total occlusion is no detectable patent lumen.
--- NOTE | 2022-09-09 11:59 | PC.NURSE ---
unable to take orthostatic standing .
[2022-09-09] MEDS: enoxaparin 40 mg/0.4 mL Syringe SUBCUT (22:31)
[2022-09-10] VITALS (7 sets, daily range): BP systolic 120–150; BP diastolic 70–95; PULSE 64–80; RESP 16–18; TEMP 36.5–36.8; O2SAT 86–97
[2022-09-10] MEDS: piperacillin-tazobactam 3.375 GM in sodium chloride 0.9% (plus) 50 ML IV ×2 (01:30→09:04)
[2022-09-10 06:04] LABS: Basophils # 0.1 10^3/uL (0.0-0.1); Basophils % 0.7 %; Eosinophils # 0.3 10^3/uL (0.0-0.8); Eosinophils % 2.4 %; Hematocrit 37.5 % (37.0-47.0); Hemoglobin 11.5 g/dL (11.5-15.3); Lymphocytes # 1.7 10^3/uL (0.8-4.8); Lymphocytes % 15.5 %; Mean Corpuscular HGB Conc 30.7 g/dL (30.0-36.0); Mean Corpuscular Hemoglobin 26.3 pg (28.0-34.0); Mean Corpuscular Volume 85.8 fl (81-99); Mean Platelet Volume 9.5 fL (7.4-10.4); Monocytes # 1.2 10^3/uL (0.2-0.9); Monocytes % 11.4 %; Neutrophils % 69.4 %; Nucleated Red Blood Cells % 0 %; Platelet Count 273 10^3/cmm (130-400); Red Blood Count 4.37 10^6/uL (4.1-5.3); White Blood Count 10.8 10^3/uL (4.0-10.0)
[2022-09-10 06:30] LABS: Alanine Aminotransferase 10 U/L (0-33); Albumin Level 3.3 g/dL (3.5-5.2); Alkaline Phosphatase 118 U/L (35-105); Anion Gap 13.8 (5-19); Aspartate Amino Transferase 14 U/L (0-32); Blood Urea Nitrogen 17 mg/dL (8-23); C Reactive Protein 5.4 mg/L (0.0-4.9); Carbon Dioxide 26 mmol/L (22-29); Chloride 101 mmol/L (98-107); Globulin 3.4 g/dL (1.3-4.6); Glucose 105 mg/dL (65-115); Magnesium 2.1 mg/dL (1.7-2.3); Osmolality Calculated 286 mOsm/kg (285-295); Phosphorus 3.8 mg/dL (2.5-4.5); Potassium 3.8 mmol/L (3.5-5.1); Sodium 137 mmol/L (136-145); Total Bilirubin 0.3 mg/dL (0.15-1.2); Total Protein 6.7 g/dL (6.6-8.7)
[2022-09-10 06:33] LABS: NT Pro B Type Natriuretic Pept 275 pg/mL (0-450); Procalcitonin 0.04 ng/mL (0-0.5)
[2022-09-10] MEDS: pantoprazole DR 40 mg Tablet PO (08:40)
--- NOTE | 2022-09-10 11:27 | PM.DCS ---
Discharge Providers Date of Admission: 09/05/22 20:09 Date of Discharge: September 10, 2022 Attending Provider at Admission: Deon Sheffield MD Attending Provider at Discharge: Faisal [facility] MD Primary Care Provider: Lj Raza DO Diagnoses at Discharge Discharge Diagnosis (1) Community acquired pneumonia: Status: Acute (2) Cholecystitis: Status: Acute (3) NSTEMI (non-ST elevated myocardial infarction): Status: Acute (4) Dementia: Status: Acute (5) Physical deconditioning: Status: Acute (6) Dizziness: Status: Acute (7) Orthostatic hypotension: Status: Acute Reason for Visit Reason for Visit: low o2 Hospital Course Hospital Course Thelma Rubalcava is a 86 year old female, resident at [facility] sent over from the facility due to c/o genralized weakness and hypoxia. Patient unable to contribute to her histiry, suspect this is related to documented dementia . She states she has been weak for a very long time, has been coughing for a very long time. Also reports nausea and dizziness over the past few days. She has a new 02 requirement? today. Labs notable for mild anemia, no leukocytosis, CXR shows retrocardiac infiltrate c/ for pneumonia Patient was admitted to [facility] for community-acquired pneumonia, received broad-spectrum antibiotic therapy, overall clinically improved, cultures so far negative, discharged on antibiotic treatment Patient also was found to have acute cholecystitis during hospitalization, with gallbladder filled with stones and sludge, managed with antibiotic treatment, after extensive discussion with patient about goals of care, patient's son would like us to avoid surgical intervention for now, wants us to medically manage, discussed morbidity and mortality associated with gallbladder infections, he voiced understanding all questions answered, wants a trial of medical therapy. She will was managed medically with IV antibiotics, overall clinically improved, still having intermittent nausea, but abdominal pain in the right upper quadrant resolved. Discharged on 11 more days of antibiotics with close follow-up with general surgery as outpatient. Patient son and skilled nursing was advised that if she were to have any worsening jaundice, abdominal pain, nausea, vomiting, fevers to bring her back to the emergency room. Patient had NSTEMI during hospitalization, likely supply demand ischemia from pneumonia, cholecystitis as above, no chest pain complaints Patient had complaints of dizziness during hospitalization, likely secondary to pneumonia, acute cholecystitis, orthostatic hypotension, infection as above. CT of the head no acute findings, did have concerns for possible normal pressure hydrocephalus although I think unlikely as patient has a history of dementia, but will monitor, carotid artery ultrasound no acute findings. Discharged to [facility], I was clear with son, I am worried about her deconditioning, risk of falls, her protein calorie malnutrition. Patient was at [facility], but he was not impressed with her care so now patient is at [facility]. 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 In addition I was worried about her gallbladder, become further infected, risk of acute ascending cholangitis, risk of morbidity and retell associate with sepsis and severe gallbladder infections. However son wants to avoid any aggressive interventions given her advanced dementia and her deconditioning, wants to proceed with medical management. Patient will be discharged to [facility], with instructions to drink protein shakes or Ensure drink 3 times a day, physical therapy, ambulating and transferring with care Physical Exam Const: COMMON NORMALS: no acute distress ORIENTATION/CONSCIOUSNESS: Yes awake, Yes oriented to person and Yes oriented to place; not oriented to time Resp: COMMON NORMALS: normal respiratory effort, No retractions, No use of accessory muscles and clear to auscultation bilaterally AUSCULTATION: clear to auscultation bilaterally Cardio: COMMON NORMALS: regular rate, regular rhythm, S1 normal heart sound present and S2 normal heart sound present RATE: regular rate RHYTHM: regular rhythm HEART SOUNDS: S1 normal heart sound present and S2 normal heart sound present GI: COMMON NORMALS: Normal to inspection, nondistended, normoactive bowel sounds present and non-tender Extremity: COMMON NORMALS: no clubbing, cyanosis or edema and no pedal edema Neuro: SENSORIUM/ORIENTATION: Yes oriented to person, Yes oriented to place and No oriented to time Discharge Data Studies Completed and Pending Completed Studies During Hospitalization Category Date Time Status CT angio chest PE protcl [id number] Routine Cat Scan 09/06/22 16:[address] head wo con* [id number] Routine Cat Scan 09/09/22 11:06 Completed XR chest 1V portable [id number] Stat Exams 09/05/22 16:32 Completed CV carotid duplex BI* [id number] Routine Ultrasound 09/09/22 11:07 Completed CV. echo complete* [id number] Routine Ultrasound 09/06/22 17:33 Completed US gall bladder [id number] Routine Ultrasound 09/06/22 17:30 Completed Pending at discharge Category Date Time Status Bacterial Antigen Routine Lab 09/10/22 04:12 Ordered Blood Culture Stat Lab 09/05/22 18:20 Results Sputum Culture and Gram Stain Stat Lab 09/05/22 17:57 Ordered Radiology Impressions Chest X-Ray 09/05/22 16:32 IMPRESSION: New peripheral left mid lung interstitial opacity suspicious for pneumonia superimposed on similar-appearing perihilar predominant interstitial opacities, which may be chronic. Chest CTA 09/06/22 16:17 IMPRESSION: 1. Negative for pulmonary embolus. 2. Cardiomegaly. 3. Trace pericardial effusion. 4. Coronary artery atherosclerotic calcifications. 5. Emphysematous changes. 6. Bilateral largely dependent atelectasis versus infiltrate. 7. Moderate hiatal hernia. 8. Cholelithiasis with gallbladder wall thickening suspected, ultrasound could further evaluate this. 9. Ascending thoracic aorta dilated to 3.4 cm. Gallbladder Ultrasound 09/06/22 17:30 IMPRESSION: 1. Abnormal gallbladder. Findings of acute cholecystitis. Sludge-filled gallbladder with stones or wall thickening. 2. Common bile duct is not dilated. Head CT 09/09/22 11:06 IMPRESSION: 1. No non-contrast CT evidence of intracranial hemorrhage, masses or subacute stroke. 2. Mild to moderately dilated ventricles are seen. This may be related to the generalized brain parenchymal atrophy or could be related to normal pressure hydrocephalus. Recommend correlation with clinical exam findings and neurological findings. CSF nuclear cisternogram may be performed for complete assessment, if there is clinical concern. Carotid Doppler Study 09/09/22 11:07 IMPRESSION: 1. Mild diffuse intimal thickening and scattered calcified plaques as described. 2. No hemodynamically significant stenosis on either side. REFERENCES: SRU CRITERIA. The degree of internal carotid artery stenosis is based on criteria defined by the Society of Radiologists in Ultrasound (SRU). Normal is no stenosis. Mild is less than 50% stenosis. Moderate is 50-69% stenosis. Severe is greater than 69% stenosis to near occlusion. Near occlusion is a markedly narrowed lumen. Total occlusion is no detectable patent lumen. Laboratory Results WBC 10.8 10^3/uL (4.0-10.0) H 09/10/22 04:45 Corrected WBC Cancelled 09/09/22 05:04 RBC 4.37 10^6/uL (4.1-5.3) 09/10/22 04:45 Hgb 11.5 g/dL (11.5-15.3) 09/10/22 04:45 Hct 37.5 % (37.0-47.0) 09/10/22 04:45 MCV 85.8 fl (81-99) 09/10/22 04:45 MCH 26.3 pg (28.0-34.0) L 09/10/22 04:45 MCHC 30.7 g/dL (30.0-36.0) 09/10/22 04:45 RDW 17.0 % (12.1-15.1) H 09/10/22 04:45 Plt Count 273 10^3/cmm (130-400) 09/10/22 04:45 MPV 9.5 fL (7.4-10.4) 09/10/22 04:45 Gran % Cancelled 09/09/22 05:04 Neut % (Auto) 69.4 % 09/10/22 04:45 Lymph % (Auto) 15.5 % 09/10/22 04:45 [place] % (Auto) 11.4 % 09/10/22 04:45 Eos % (Auto) 2.4 % 09/10/22 04:45 Baso % (Auto) 0.7 % 09/10/22 04:45 Neut # (Auto) 7.50 10^3/uL (1.8-7.7) 09/10/22 04:45 Lymph # (Auto) 1.7 10^3/uL (0.8-4.8) 09/10/22 04:45 [place] # (Auto) 1.2 10^3/uL (0.2-0.9) H 09/10/22 04:45 Eos # (Auto) 0.3 10^3/uL (0.0-0.8) 09/10/22 04:45 Baso # (Auto) 0.1 10^3/uL (0.0-0.1) 09/10/22 04:45 Absolute Gran (auto) Cancelled 09/09/22 05:04 Nucleated RBC % (auto) 0 % 09/10/22 04:45 Nucleated RBCs # 0.0 /100WBC 09/10/22 04:45 D-Dimer 1.25 ug/mIFEU (0-0.59) H 09/05/22 21:24 Specimen Type Arterial 09/05/22 16:43 Sample Site Brachial, right 09/05/22 16:43 ABG pH 7.41 (7.35-7.45) 09/05/22 16:43 ABG pCO2 41.6 mmHg (35-45) 09/05/22 16:43 ABG pO2 65.6 mmHg (80.0-100.0) L 09/05/22 16:43 ABG HCO3 26.4 mmol/L (22-26) H 09/05/22 16:43 ABG O2 Saturation 94.3 09/05/22 16:43 ABG Base Excess 1.6 mmol/L (-2.0-2.0) 09/05/22 16:43 Gaurav Test N/a 09/05/22 16:43 A-a O2 Gradient 10.6 mmHg (5-10) H 09/05/22 16:43 Hematocrit 34.7 % (37-47) L 09/05/22 16:43 Hgb O2 Saturation 92.1 % (95-100) L 09/05/22 16:43 Carboxyhemoglobin 1.6 %THgb (0.4-20.1) 09/05/22 16:43 Methemoglobin 0.7 % (0.4-1.5) 09/05/22 16:43 Total Hemoglobin 11.3 g/dL (12-16) L 09/05/22 16:43 Sodium 139.0 mmol/L (131-143) 09/05/22 16:43 Potassium 4.0 mmol/L (3.5-5.0) 09/05/22 16:43 Glucose 135.0 mg/dL (70-115) H 09/05/22 16:43 Ionized Calcium 1.2 mmol/L (1.1-1.4) 09/05/22 16:43 O2 Delivery Device Nc 09/05/22 16:43 O2 Liters/Min 2.0 % 09/05/22 16:43 FiO2 28.0 % 09/05/22 16:43 Front Line Supervisor ID Amh 09/05/22 16:43 Sodium 137 mmol/L (136-145) 09/10/22 04:45 Potassium 3.8 mmol/L (3.5-5.1) 09/10/22 04:45 Chloride 101 mmol/L (98-107) 09/10/22 04:45 Carbon Dioxide 26 mmol/L (22-29) 09/10/22 04:45 Anion Gap 13.8 (5-19) 09/10/22 04:45 BUN 17 mg/dL (8-23) 09/10/22 04:45 Creatinine 0.9 mg/dL (0.5-0.9) 09/10/22 04:45 GFR Calculation Not Reportable 09/10/22 04:45 Glucose 105 mg/dL (65-115) 09/10/22 04:45 Calculated Osmolality 286 mOsm/kg (285-295) 09/10/22 04:45 Calcium 9.0 mg/dL (8.5-10.5) 09/10/22 04:45 Phosphorus 3.8 mg/dL (2.5-4.5) 09/10/22 04:45 Magnesium 2.1 mg/dL (1.7-2.3) 09/10/22 04:45 Total Bilirubin 0.3 mg/dL (0.15-1.2) 09/10/22 04:45 GGT 82 U/L (5-36) H 09/07/22 03:50 AST 14 U/L (0-32) 09/10/22 04:45 ALT 10 U/L (0-33) 09/10/22 04:45 Alkaline Phosphatase 118 U/L (35-105) H 09/10/22 04:45 Troponin T Baseline 17 ng/L (0-10) H 09/05/22 21:24 Troponin T 120 Minute 18.48 ng/L (0-10) H 09/05/22 23:23 Delta Troponin T 1.48 ABS# (0-10) 09/05/22 23:23 Troponin T Hi Sens 6Hr 26.76 ng/L (0-10) H 09/06/22 06:28 Troponin T Hi Sens 6Hr Delta 9.76 ng/L (0-12) 09/06/22 06:28 C-Reactive Protein 5.4 mg/L (0.0-4.9) H 09/10/22 04:45 NT-Pro-B Natriuret Pep 275 pg/mL (0-450) 09/10/22 04:45 Total Protein 6.7 g/dL (6.6-8.7) 09/10/22 04:45 Albumin 3.3 g/dL (3.5-5.2) L 09/10/22 04:45 Globulin 3.4 g/dL (1.3-4.6) 09/10/22 04:45 Lipase 17 U/L (13-60) 09/07/22 03:50 Procalcitonin 0.04 ng/mL (0-0.5) 09/10/22 04:45 Urine Color Yellow (Yellow) 09/06/22 21:15 Urine Appearance Clear (CLEAR) 09/06/22 21:15 Urine pH 7 (5-7) 09/06/22 21:15 Ur Specific [place] 1.005 (1.005-1.030) 09/06/22 21:15 Urine Protein Neg (Negative) 09/06/22 21:15 Urine Glucose (UA) Norm (Normal) 09/06/22 21:15 Urine Ketones Negative (Negative) 09/06/22 21:15 Urine Blood Neg (Negative) 09/06/22 21:15 Urine Nitrate Negative (Negative) 09/06/22 21:15 Urine Bilirubin Neg (Negative) 09/06/22 21:15 Urine Urobilinogen Neg mg/dL (Negative) 09/06/22 21:15 Ur Leukocyte Esterase Negative (Negative) 09/06/22 21:15 Vitals Last Vital Signs Temp 98.2 F 09/10/22 08:00 Pulse 73 09/10/22 08:00 Resp 16 09/10/22 08:00 BP 133/80 09/10/22 08:00 Pulse Ox 97 09/10/22 08:00 O2 Del Method Nasal Cannula 09/10/22 08:00 O2 Flow Rate 3 09/10/22 08:00 Discharge Plan Discharge Patient Disposition: Xfer SNF Condition: Stable Prescriptions: New ciprofloxacin HCl 500 mg tablet 500 mg PO BID 11 Days Qty: 22 0RF metronidazole 500 mg tablet 500 mg PO Q8H 11 Days Qty: 33 0RF ondansetron 4 mg tablet,disintegrating 4 mg PO Q8H PRN (Reason: nausea and vomiting) 7 Days Qty: 21 0RF Continued loperamide 2 mg capsule 2 mg PO Q4H PRN (Reason: Diarrhea) aspirin [Adult Low Dose Aspirin] 81 mg tablet,delayed release (DR/EC) 81 mg PO DAILY acetaminophen [Tylenol 8 Hour] 650 mg tablet extended release 650 mg PO Q4H PRN (Reason: Pain) clopidogrel [Plavix] 75 mg tablet 75 mg PO DAILY nitroglycerin [Nitrostat] 0.4 mg tablet, sublingual 0.4 mg SUBLINGUAL Q5M PRN (Reason: Chest Pain) pantoprazole [Protonix] 20 mg tablet,delayed release (DR/EC) 20 mg PO BID cranberry 500 mg capsule 500 mg PO BID gelatin 600 mg capsule 600 mg PO DAILY rosuvastatin 5 mg tablet 5 mg PO DAILY melatonin 1 mg tablet 1 mg PO BEDTIME potassium chloride 10 mEq tablet extended release 10 meq PO DAILY 30 Days Qty: 30 11RF fentanyl 25 mcg/hr patch 72 hour 1 patch transdermal Q72H 30 Days Qty: 10 0RF docusate sodium 100 mg Capsule 200 mg PO BID PRN (Reason: Constipation) albuterol sulfate 90 mcg/actuation Hfa Aerosol Inhaler 2 puff INHALATION Q6H PRN (Reason: Shortness Of Breath) amitriptyline 10 mg tablet 10 mg PO BEDTIME Discharge Orders: Discharge Order (Routine); Ordered 09/10/22 Ordered By: Faisal [facility] Referrals: Lj Raza DO [Primary Care Provider] - Devon Liriano DO [Physician] - 2 weeks Discharge Diet: Low Fat Discharge Activity: Resume usual activity Patient Instructions: Opioid Safety Activity Restrictions/Additional Instructions: - Oxygen therapy as prescribed -For her pneumonia discharged on antibiotic treatment -For her gallbladder infection I discharged her on 11 remaining days of oral antibiotics -She can use Zofran for nausea -If she has recurrent abdominal pain, fevers, chills, nausea, vomiting please go to the emergency room -Monitor for jaundice -Repeat CBC and CMP in 3 days -Adhere to low-fat diet -Please see general surgery in 2 weeks -PT OT recommended daily -Encourage Ensure drinks 3 times a day Discharge Attestations Time Spent in Discharge Care*: greater than 30 min Quality Metrics Clinical Quality Measures [ No reported AMI, CVA or VTE this stay] Coding Level of Care Code 51495 Total time (in minutes) for Discharge: 50 Diagnoses Community acquired pneumonia J18.9 Cholecystitis K81.9 NSTEMI (non-ST elevated myocardial infarction) I21.4 Dementia F03.90 Physical deconditioning R53.81 Dizziness R42 Orthostatic hypotension I95.1
--- NOTE | 2022-09-10 11:46 | PC.NURSE ---
PRESCRIPTIONS CALLED INTO THE [facility] HERE IN [place]. SON WILL PICK THEM UP.
[2022-09-10] MEDS: fentaNYL 25 mcg Patch 1 PATCH TRANSDERMA (12:13)
--- NOTE | 2022-09-10 12:19 | PC.SOCIAL ---
IMM Updated Updated pt's son on IMM. No questions voiced. Provided pt a copy. Initialed, dated, & timed copy in chart.
--- NOTE | 2022-09-10 14:15 | PC.NURSE ---
Report given to Viri at [facility] via phone at [phone].
== END 2022-09-10 14:59 | disposition skilled nursing facility (03) | DRG 193 ==
LOC: ER 19:22 → MEDSURG 20:10
PROVIDERS: Student in an Organized Health Care Education/Training Program; Admitting Provider Student in an Organized Health Care Education/Training Program; Emergency Provider Family Medicine; PCP Family Medicine; Visit Provider Family Medicine
DX: J18.9 Pneumonia, unspecified organism (principal); I21.4 Non-ST elevation (NSTEMI) myocardial infarction; K80.00 Calculus of gallbladder with acute cholecystitis without obstruction; E46 Unspecified protein-calorie malnutrition; F03.90 Unspecified dementia, unspecified severity, without behavioral disturbance, psychotic disturbance, mood disturbance, and anxiety; D64.9 Anemia, unspecified; I95.1 Orthostatic hypotension; Z68.22 Body mass index [BMI] 22.0-22.9, adult; Z79.82 Long term (current) use of aspirin; Z79.02 Long term (current) use of antithrombotics/antiplatelets; Z79.51 Long term (current) use of inhaled steroids; I73.9 Peripheral vascular disease, unspecified; G62.9 Polyneuropathy, unspecified; I08.3 Combined rheumatic disorders of mitral, aortic and tricuspid valves
CPT/HCPCS: 36415; 36600; 70450; 71045; 71275; 76705; 80051; 80053; 81003; 82330; 82805; 82977; 83690; 83735; 83880; 84100; 84145; 84484; 85025; 85378; 86140; 87040; 87449; 92523; 92526; 92610; 93005; 93306; 93880; 94760; 96365; 96372; 97161; 97167; 97530; 97535; 99285; J0696; J1650; J1940; J1956; J2405; J2543; J2765; Q0144; Q9967

== ENCOUNTER 2022-09-13 13:57 | Outpatient (CLI) | payer MEDICARE, OTHER, SELFPAY ==
[2022-09-13 14:07] LABS: Basophils # 0.2 10^3/uL (0.0-0.1); Basophils % 1.5 %; Eosinophils # 0.3 10^3/uL (0.0-0.8); Eosinophils % 2.7 %; Hematocrit 41.7 % (37.0-47.0); Hemoglobin 12.6 g/dL (11.5-15.3); Lymphocytes # 2.5 10^3/uL (0.8-4.8); Lymphocytes % 24.1 %; Mean Corpuscular HGB Conc 30.2 g/dL (30.0-36.0); Mean Corpuscular Hemoglobin 25.8 pg (28.0-34.0); Mean Corpuscular Volume 85.3 fl (81-99); Mean Platelet Volume 9.3 fL (7.4-10.4); Monocytes # 1.1 10^3/uL (0.2-0.9); Nucleated Red Blood Cells % 0 %; Platelet Count 340 10^3/cmm (130-400); Red Blood Count 4.89 10^6/uL (4.1-5.3); Red Cell Distribution Width 16.9 % (12.1-15.1); White Blood Count 10.3 10^3/uL (4.0-10.0)
[2022-09-13 14:24] LABS: Alanine Aminotransferase 11 U/L (0-33); Alkaline Phosphatase 123 U/L (35-105); Anion Gap 14.3 (5-19); Aspartate Amino Transferase 21 U/L (0-32); Blood Urea Nitrogen 16 mg/dL (8-23); Calcium 9.2 mg/dL (8.5-10.5); Carbon Dioxide 26 mmol/L (22-29); Chloride 99 mmol/L (98-107); Globulin 3.5 g/dL (1.3-4.6); Glucose 87 mg/dL (65-115); Osmolality Calculated 281 mOsm/kg (285-295); Potassium 4.3 mmol/L (3.5-5.1); Sodium 135 mmol/L (136-145); Total Bilirubin 0.3 mg/dL (0.15-1.2); Total Protein 7.5 g/dL (6.6-8.7)
== END 2022-09-13 13:58 | disposition home or self-care (01) ==
LOC: LAB 14:00
PROVIDERS: PCP Family Medicine; Visit Provider Family Medicine
DX: D64.9 Anemia, unspecified (principal); I10 Essential (primary) hypertension
CPT/HCPCS: 80053; 85025

== ENCOUNTER 2022-09-28 15:50 | Emergency (ER) | payer MEDICARE, OTHER, SELFPAY ==
[2022-09-28 15:55] VITALS: BP 150/75; PULSE 61; RESP 18; TEMP 36.6; O2SAT 94; BMI 22.6
--- NOTE | 2022-09-28 16:00 | CTR_ITS ---
PROCEDURE INFORMATION: Exam: CT Head Without Contrast Exam date and time: 09/28/2022 4:09 PM Age: 86 years old Clinical indication: Injury or trauma; Fall; Blunt trauma (contusions or hematomas); Additional info: Closed head injury/trauma TECHNIQUE: Imaging protocol: Computed tomography of the head without contrast. Radiation optimization: All CT scans at this facility use at least one of these dose optimization techniques: automated exposure control; mA and/or kV adjustment per patient size (includes targeted exams where dose is matched to clinical indication); or iterative reconstruction. REPORTING DATA: Count of CT and Cardiac NM exams in prior 12 months: This patient has received 3 known CTs and 0 known cardiac nuclear medicine studies in the 12 months prior to the current study. COMPARISON: CT head wo con* [id number] 09/10/2022 9:55 AM RADIATION DOSE METRICS: Total DLP (mGy-cm): 1048.78 FINDINGS: Brain: No focal hemorrhage or midline shift is identified. The ventricles and parenchyma show severe atrophy and chronic bicerebral white matter ischemic change. A few scattered old lacunes are likely. Cerebral ventricles: Large ventricles again seen, no change from 09/10/2022. NPH possible. Paranasal sinuses: No evidence of acute sinusitis. Mastoid air cells: Visualized mastoid air cells are well aerated. Bones/joints: No displaced skull fracture is noted. Soft tissues: Unremarkable. Vasculature: Diffuse vascular calcifications are present. CT/CT head wo con* [id number] IMPRESSION: 1. No acute intracranial abnormality. 2. Severe age-related changes. 3. Large ventricles again seen, no change from 09/10/2022. NPH again possible.
[2022-09-28 16:02] VITALS: BP 150/75; PULSE 61; RESP 18; O2SAT 94
--- NOTE | 2022-09-28 16:22 | ED_ITS ---
HPI - Fall General: Chief Complaint: Fall Stated Complaint: fall Time Seen by Provider: 09/28/22 15:51 Source: patient, family and EMS Mode of arrival: EMS History of Present Illness: 86-year-old female presents to the emergency room with complaint of a fall. She was at the alf she went to use the restroom and fell forward hit the back of her head on a hardwood floor. She had some dizziness after this happened no vomiting no diarrhea no complaints of any neck pain at this time is complaining of a tender spot on her head. MD complaint: fall Onset (ago): minute(s) Fall from: standing Fall witnessed: yes, by living facility staff Place fall occurred: alf/SNF Loss of consciousness: None Context: tripped/slipped Location of injury: head Associated symptoms-after fall: Reports confusion (Chronic); Denies abdominal pain, chest pain, headache(s), hematuria, neck pain, numbness, short of breath or weakness Review of Systems Const: Denies: fever(s) or chills Card: Denies: chest pain Resp: Denies: dyspnea, productive cough or non-productive cough GI: Denies: abdominal pain, nausea or vomiting : Denies: dysuria, urinary frequency, urinary urgency or hematuria Musc: Denies: neck pain or back pain Skin/Breast: Denies: rash or pruritus Neuro: Reports: confusion (Chronic); Denies: headache(s) PFSH ED PFSH: Medical History Arteriosclerotic coronary artery disease Depressive disorder GERD (gastroesophageal reflux disease) History of CVA (cerebrovascular accident) History of VA (myocardial infarction) Hyperlipidemia Neuropathy PVD (peripheral vascular disease) Surgical History History of back surgery S/P carpal tunnel release S/P cataract surgery S/P coronary angioplasty S/P hysterectomy S/P knee surgery Family History Other CAD (coronary artery disease) Social History Smoking and tobacco status: former smoker Physical Exam Const: COMMON NORMALS: no acute distress GENERAL APPEARANCE: cooperative and comfortable ORIENTATION/CONSCIOUSNESS: Yes awake HENMT: COMMON NORMALS: normocephalic and hearing grossly normal bilaterally HEAD & SCALP: normocephalic OTHER: Small tender swollen area just to the left of the midline on the occiput Eye: COMMON NORMALS: Equal, round and reactive pupils present and EOMs intact bilaterally PUPIL: Yes Equal, round and reactive pupils present Neck/C-Spine: OTHER: No distracting injury cervical spine cleared clinically Resp: COMMON NORMALS: normal respiratory effort, No retractions, No use of accessory muscles and clear to auscultation bilaterally AUSCULTATION: clear to auscultation bilaterally Cardio: COMMON NORMALS: regular rate, regular rhythm and No murmurs present (Cardio) RATE: regular rate RHYTHM: regular rhythm GI: COMMON NORMALS: Soft to palpation and No hepatosplenomegaly present AUSCULTATION: Yes normoactive bowel sounds PALPATION: Yes Soft to palpation, No Tenderness to palpation present (GI), No Guarding due to palpation present (GI) and Yes No hepatosplenomegaly present Extremity: COMMON NORMALS: normal to inspection, capillary refill normal, no clubbing, cyanosis or edema, no calf tenderness and no pedal edema Skin: COMMON NORMALS: no rashes or lesions noted GENERAL SKIN EXAM: no rashes or lesions noted Course Vital Signs: Vital signs: Vital Signs Temperature 97.9 F 09/28/22 15:55 Pulse Rate 61 09/28/22 16:02 Respiratory Rate 18 09/28/22 16:02 Blood Pressure 150/75 09/28/22 16:02 Pulse Oximetry 94 09/28/22 16:02 Oxygen Delivery Me thod Room Air 09/28/22 16:02 MDM - Fall Medical Decision Making CT head negative. Patient has no specific complaints this time will discharge back home to the alf no change in plans follow-up as needed Medical Records I reviewed the patient's medical records. Lab Data I reviewed the patient's lab results. Radiology Impressions Head CT 09/28/22 16:00 IMPRESSION: 1. No acute intracranial abnormality. 2. Severe age-related changes. 3. Large ventricles again seen, no change from 09/10/2022. NPH again possible. Discharge Plan Discharge Patient Disposition: Home Clinical Impression: Closed head injury, Dementia, Physical deconditioning Condition: Stable Prescriptions: No Action loperamide 2 mg capsule 2 mg PO Q4H PRN (Reason: Diarrhea) aspirin [Adult Low Dose Aspirin] 81 mg tablet,delayed release (DR/EC) 81 mg PO DAILY acetaminophen [Tylenol 8 Hour] 650 mg tablet extended release 650 mg PO Q4H PRN (Reason: Pain) clopidogrel [Plavix] 75 mg tablet 75 mg PO DAILY nitroglycerin [Nitrostat] 0.4 mg tablet, sublingual 0.4 mg SUBLINGUAL Q5M PRN (Reason: Chest Pain) pantoprazole [Protonix] 20 mg tablet,delayed release (DR/EC) 20 mg PO BID cranberry 500 mg capsule 500 mg PO BID gelatin 600 mg capsule 600 mg PO DAILY rosuvastatin 5 mg tablet 5 mg PO DAILY melatonin 1 mg tablet 1 mg PO BEDTIME potassium chloride 10 mEq tablet extended release 10 meq PO DAILY 30 Days Qty: 30 11RF fentanyl 25 mcg/hr patch 72 hour 1 patch transdermal Q72H 30 Days Qty: 10 0RF docusate sodium 100 mg Capsule 200 mg PO BID PRN (Reason: Constipation) albuterol sulfate 90 mcg/actuation Hfa Aerosol Inhaler 2 puff INHALATION Q6H PRN (Reason: Shortness Of Breath) amitriptyline 10 mg tablet 10 mg PO BEDTIME Discharge Orders: Discharge ED (Routine); Ordered 09/28/22 Ordered By: Rolando Pappas Referrals: Lj Raza DO [Primary Care Provider] - Patient Instructions: Opioid Safety, Pain Management Coding Level of Care Code ED Want Ad Supervisor for Dominick Brewster
[2022-09-28 16:52] VITALS: PULSE 63; RESP 18; O2SAT 95
== END 2022-09-28 16:54 | disposition home or self-care (01) ==
PROVIDERS: Emergency Provider Family Medicine; PCP Family Medicine
DX: S09.8XXA Other specified injuries of head, initial encounter (principal); F03.90 Unspecified dementia, unspecified severity, without behavioral disturbance, psychotic disturbance, mood disturbance, and anxiety; R53.81 Other malaise; Z79.82 Long term (current) use of aspirin; Z79.02 Long term (current) use of antithrombotics/antiplatelets; Z87.891 Personal history of nicotine dependence; I25.10 Atherosclerotic heart disease of native coronary artery without angina pectoris; Z86.73 Personal history of transient ischemic attack (TIA), and cerebral infarction without residual deficits; I25.2 Old myocardial infarction; E78.5 Hyperlipidemia, unspecified; W18.39XA Other fall on same level, initial encounter; Y92.129 Unspecified place in nursing home as the place of occurrence of the external cause
CPT/HCPCS: 70450; 99284

== ENCOUNTER 2022-10-04 11:40 | Outpatient (CLI) | payer MEDICARE, OTHER, SELFPAY ==
[2022-10-04 12:27] LABS: Add Urine Microscopic? YES; Bilirubin Urine Neg (Negative); Blood Urine 3+ (Negative); Glucose Urine UA Norm (Normal); Ketones Urine Negative (Negative); Leukocyte Esterase Urine 1+ (Negative); Nitrate Urine Positive (Negative); Protein Urine Neg (Negative); Urine Appearance Cloudy (CLEAR); Urine Color Yellow (Yellow); Urobilinogen Urine Norm (Negative); pH Urine 6 (5-7)
[2022-10-04 12:28] LABS: Bacteria Urine 1+ /hpf; Renal Epithelial Cells Urine 0 /hpf; WBC Urine >100 /hpf (0-5)
[2022-10-04 12:29] LABS: Add Urine Culture? Yes; Oval Fat Bodies Urine 1+ /hpf
== END 2022-10-04 11:41 | disposition home or self-care (01) ==
LOC: LAB 11:41
PROVIDERS: PCP Family Medicine; Visit Provider Family Medicine
DX: N39.0 Urinary tract infection, site not specified (principal)
CPT/HCPCS: 81001; 87077; 87086; 87186

== ENCOUNTER → 2022-10-10 11:21 | Outpatient (BNVA) | payer MEDICARE, OTHER, SELFPAY | PROVIDERS: PCP Family Medicine; Visit Provider Surgery | DX: K80.20 Calculus of gallbladder without cholecystitis without obstruction (principal) | CPT/HCPCS: 99203 ==

== ENCOUNTER → 2022-10-12 09:09 | Outpatient (BNVA) | payer MEDICARE, OTHER, SELFPAY | PROVIDERS: PCP Family Medicine; Visit Provider Podiatrist Foot & Ankle Surgery | DX: I73.9 Peripheral vascular disease, unspecified (principal); L60.3 Nail dystrophy; M20.41 Other hammer toe(s) (acquired), right foot; M20.42 Other hammer toe(s) (acquired), left foot | CPT/HCPCS: 11721; 99204 ==

== ENCOUNTER 2022-11-12 13:50 | Outpatient (CLI) | payer MEDICARE, OTHER, SELFPAY ==
[2022-11-12 15:19] LABS: Add Urine Microscopic? YES; Bilirubin Urine Neg (Negative); Blood Urine 2+ (Negative); Glucose Urine UA Norm (Normal); Ketones Urine Negative (Negative); Leukocyte Esterase Urine 1+ (Negative); Nitrate Urine Negative (Negative); Protein Urine Neg (Negative); Specific Gravity, Urine 1.005 (1.005-1.030); Urine Appearance SL Hazy (CLEAR); Urine Color Straw (Yellow); Urobilinogen Urine Norm (Negative); WBC Urine 40-55 /hpf (0-5); pH Urine 7 (5-7)
[2022-11-12 15:20] LABS: Add Urine Culture? Yes; Bacteria Urine 1+ /hpf; Squamous Epithelial Cell Urine 0-4 /hpf (0-5)
== END 2022-11-12 13:51 | disposition home or self-care (01) ==
PROVIDERS: PCP Family Medicine; Visit Provider Family Medicine
DX: N39.0 Urinary tract infection, site not specified (principal)
CPT/HCPCS: 81001; 87077; 87086; 87186

== ENCOUNTER → 2022-12-12 11:11 | Outpatient (BNVA) | payer MEDICARE, OTHER, SELFPAY | PROVIDERS: PCP Family Medicine; Visit Provider Surgery | DX: K80.20 Calculus of gallbladder without cholecystitis without obstruction (principal) | CPT/HCPCS: 99203; 99214 ==

== ENCOUNTER 2022-12-14 10:22 | Outpatient (CLI) | payer MEDICARE, OTHER, SELFPAY ==
[2022-12-14 11:11] LABS: Urine Appearance Cloudy (CLEAR); Urine Color Yellow (Yellow); pH Urine 6 (5-7)
[2022-12-14 11:12] LABS: Add Urine Culture? Yes; Add Urine Microscopic? YES; Bacteria Urine 1+ /hpf; Bilirubin Urine Neg (Negative); Blood Urine 2+ (Negative); Glucose Urine UA Norm (Normal); Ketones Urine Negative (Negative); Leukocyte Esterase Urine 2+ (Negative); Mucus Urine 1+ /hpf; Nitrate Urine Positive (Negative); Protein Urine Trace (Negative); Specific Gravity, Urine 1.015 (1.005-1.030); Squamous Epithelial Cell Urine 0-4 /hpf (0-5); Urobilinogen Urine Norm (Negative); WBC Urine 55-80 /hpf (0-5)
== END 2022-12-14 10:23 | disposition home or self-care (01) ==
LOC: LAB 10:24
PROVIDERS: PCP Family Medicine; Visit Provider Family Medicine
DX: N39.0 Urinary tract infection, site not specified (principal)
CPT/HCPCS: 81001; 87077; 87086; 87186

== ENCOUNTER 2023-01-08 16:04 | Observation (INO) | payer MEDICARE, OTHER, SELFPAY ==
[2023-01-05 13:54] VITALS: BMI 22.6
[2023-01-08] VITALS (25 sets, daily range): BP systolic 95–163; BP diastolic 51–91; PULSE 65–103; RESP 15–27; TEMP 36.1–36.5; O2SAT 84–100
[2023-01-08] MEDS: sodium chloride 0.9% 1,000 ML 30 ML IV (09:42)
--- NOTE | 2023-01-08 09:54 | ANES.PREANE2 ---
Pre-Anesthetic Assessment Height/Weight: Height 1.68 m Weight 63.503 kg Operation Date: 01/08/23 11:15 Proposed Procedures p 50368 lap wendy K80.20(Not Applicable) - Devon Liriano, DO Was Beta Rick taken within 24 hours: N/A Was Clonidine taken within 24 hours: N/A Social Tobacco 0 pack(s) per day Quit years ago Exam alert and clear to auscultation bilaterally Airway Submandibular: within normal limits Cervical ROM: within normal limits Mallampati: Class II Dentition: false Comments: Comments: Upper denture History/ROS No significant history except as noted Pulmonary Chronic Obstructive Pulmonary Disease CV/HEM Atrial Fibrillation and Coronary Artery Disease (Multiple stents, last placed > 10 years ago) Echo 08/2022: EF 60%, mild MR, mod TR Frequent urosepsis according to son who is POA GI Gastroesophageal Reflux Disease Metabolic Hyperlipidemia [facility] [place] Chronic pain Neuropsych Dementia Anesthetic Plan ASA status: 3 Anesthesia: General Other: Plan discussed with pt and her son Risk of > 500 ml blood loss (7ml/kg in children): No Medications/Allergies Home Medications Medication Instructions Recorded Confirmed Last Taken Type acetaminophen 650 mg 650 mg PO Q4H PRN Pain 08/18/19 01/06/23 10/13/22 History tablet,extended release (Tylenol 8 Hour) aspirin 81 mg tablet,delayed 81 mg PO DAILY 08/18/19 01/06/23 Unknown History release (Adult Low Dose Aspirin) clopidogrel 75 mg tablet (Plavix) 75 mg PO DAILY 08/18/19 01/06/23 01/03/23 History cranberry 500 mg capsule 500 mg PO BID 08/18/19 01/06/23 01/05/23 History loperamide 2 mg capsule 2 mg PO Q4H PRN Diarrhea 08/18/19 01/06/23 Unknown History melatonin 1 mg tablet 1 mg PO BEDTIME 08/18/19 01/06/23 01/04/23 History nitroglycerin 0.4 mg sublingual 0.4 mg sublingual Q5M PRN Chest 08/18/19 01/06/23 Unknown History tablet (Nitrostat) Pain pantoprazole 20 mg tablet,delayed 40 mg PO DAILY 08/18/19 01/06/23 01/05/23 History release (Protonix) rosuvastatin 5 mg tablet 5 mg PO DAILY 08/18/19 01/06/23 01/05/23 History albuterol sulfate 90 mcg/actuation 2 puff inhalation Q6H PRN 09/06/22 01/06/23 Unknown History aerosol inhaler Shortness Of Breath amitriptyline 10 mg tablet 10 mg PO BEDTIME 09/06/22 01/06/23 01/04/23 History docusate sodium 100 mg capsule 200 mg PO BID PRN Constipation 09/06/22 01/06/23 Unknown History fentanyl 25 mcg/hr transdermal 1 patch transdermal Q72H 30 days 12/07/22 01/06/23 01/04/23 Rx patch #10 patches ondansetron HCl 4 mg tablet 4 mg PO Q4H 12/12/22 01/06/23 12/24/22 History pregabalin 50 mg capsule (Lyrica) 50 mg PO BID 12/12/22 01/06/23 01/05/23 History Allergies Allergy/AdvReac Type Severity Reaction Status Date / Time latex Allergy Unknown Verified 01/08/23 09:57 Current Medications Generic Name Dose Route Start Last Admin Trade Name Freq PRN Reason Stop Dose Admin Sodium Chloride 1,000 mls @ 30 mls/hr 01/08/23 09:30 01/08/23 09:42 Sodium Chloride 0.9% IV 01/09/23 09:29 30 mls/hr .Q24H MADHAVI Administration PFSH Anesthesia Medical History Arteriosclerotic coronary artery disease Depressive disorder GERD (gastroesophageal reflux disease) History of CVA (cerebrovascular accident) History of LA (myocardial infarction) Hyperlipidemia Neuropathy PVD (peripheral vascular disease) Surgical History History of back surgery S/P carpal tunnel release S/P cataract surgery S/P coronary angioplasty S/P hysterectomy S/P knee surgery Family History Other CAD (coronary artery disease) Social History Smoking and tobacco status: former smoker Alcohol intake: never Data Anesthesia Cardiac Studies: Echocardiogram 09/06/22
--- NOTE | 2023-01-08 10:28 | W.PM.OPSUD ---
Surgery/Procedure H&P Update DATE OF PROCEDURE: January 08, 2023 DATE H&P PERFORMED: 12/12/22 H&P UPDATE INFORMATION: I have reviewed H&P completed within last 30 days, I have examined patient prior to procedure and No changes to prior documentation PLANNED PROCEDURE: Operation Date: 01/08/23 11:15 Proposed Procedures p 38544 lap wendy K80.20(Not Applicable) - Devon Liriano DO
[2023-01-08 10:30] LABS: Basophils # 0.1 10^3/uL (0.0-0.1); Basophils % 0.9 %; Eosinophils # 0.1 10^3/uL (0.0-0.8); Eosinophils % 1.5 %; Hematocrit 36.6 % (36-47); Lymphocytes # 1.4 10^3/uL (0.8-4.8); Lymphocytes % 25.7 %; Mean Corpuscular HGB Conc 30.9 g/dL (30-55); Mean Corpuscular Hemoglobin 25.8 pg (27-33); Mean Corpuscular Volume 83.6 fl (85-98); Mean Platelet Volume 10.6 fL (7.4-10.4); Monocytes # 1.1 10^3/uL (0.2-0.9); Monocytes % 19.7 %; Neutrophils # 2.76 10^3/uL (1.8-7.7); Neutrophils % 51.8 %; Nucleated Red Blood Cells % 0 %; Platelet Count 220 10^3/cmm (157-399); Red Blood Count 4.38 10^6/uL (3.85-5.65); Red Cell Distribution Width 16.5 % (12.1-15.1); White Blood Count 5.33 10^3/uL (3.29-11.43)
[2023-01-08] MEDS: ceFAZolin 2,000 MG in sodium chloride 0.9% (plus) 50 ML 100 MG IV (10:53)
[2023-01-08] MEDS: lidocaine-epi 2% 20 mL INJ INJECTION (11:14)
--- NOTE | 2023-01-08 12:25 | P.OP_ITS ---
Operative Report Date of procedure: January 08, 2023 Pre-op diagnosis: Symptomatic cholelithiasis Post-op diagnosis: same Procedure done: Laparoscopic cholecystectomy Implants: Surgicel Specimens removed/disposition: Gallbladder Surgeon: Devon Liriano DO Anesthesia: General Estimated blood loss (mL): 5 Complications: None apparent Brief History: This is a very pleasant 87-year-old female who was diagnosed with symptomatic cholelithiasis. Laparoscopic cholecystectomy was indicated. The risk and benefits were explained and documented. Procedure: Patient was wheeled into the operative room and placed on the OR table in a supine position. Abdomen was inspected prepped and draped in usual sterile fashion. Time-out was performed and all present were in agreement. A 15 blade scalp was used to make a stab incision in the left upper quadrant and intra-abd ominal insufflation was achieved using a Veress needle. After localizing the tissue incisions were made and a 5 millimeter trocar was placed into the umbilicus as well as 2 in the right upper quadrant. A 12 millimeter trocar was placed in the epigastrium. Gallbladder was grasped and elevated. The triangle of Calot was carefully dissected using blunt dissection and electrocautery until the triangle of Calot clearly identified. The cystic duct was clipped proximally and double clipped distally. The duct was then ligated proximally. The cystic artery was doubly clipped and ligated. The gallbladder was then removed from the liver bed using electrocautery. The gallbladder was removed from the abdomen using an Endo-Catch bag through the epigastric incision. The liver bed was inspected and some slow oozing was seen. This was controlled with electrocautery and a piece of Surgicel. Upon further inspection, I noticed bile leaking from a duct. I carefully meticulously dissected this area out and found it to be a short stub of remaining cystic duct. I put 2 clips on the common bile duct side of the duct and the leak stopped. The abdomen was irrigated and suctioned. All ports removed. Skin was washed and dried. Incisions were closed with 4-0 Monocryl in a subcuticular interrupted fashion. Skin glue was applied. Patient tolerated the procedure well.
[2023-01-08] MEDS: fentaNYL 50 mcg/mL INJ 2mL IVP (12:47)
[2023-01-08] MEDS: ondansetron 2 mg/ML SDV 2 mL 4 MG IVP ×2 (13:10→13:35)
[2023-01-08] MEDS: oxyCODONE-APAP 5-325 mg Tablet 1 TAB PO (13:58)
--- NOTE | 2023-01-08 15:33 | PM.HP ---
Providers/Chief Complaint Primary Care Provider: Lj Raza DO Chief Complaint: 80218 K80.20 History of Present Illness Thelma Rubalcava is a 87 year old female who had laparoscopic cholecystectomy done postoperatively requiring 2 to 3 L of oxygen, patient does not have any complaint shortness of breath, no recent fever, recent echo showing pulm hypertension and grade 1 diastolic function with preserved ejection fraction. At the time of my evaluation patient is on 2 L No complaint of active pain She has been given IV Lasix BMP requested I would not repeat echo She is from assisted living, Review of Systems Const: Denies: fever(s) Eyes: Denies: change in vision ENMT: Denies: throat pain Card: Denies: chest pain Resp: Reports: dyspnea GI: Reports: abdominal pain : Denies: flank pain Musc: Reports: back pain Skin/Breast: Denies: rash or skin tenderness Neuro: Reports: headache(s) Psych: Reports: anxiety Endo: Denies: polyuria Uche/Lymph: Denies: easy bruising All/Imm: Denies: urticaria Medications/Allergies Home Medications Medication Instructions Recorded Confirmed Last Taken Type acetaminophen 650 mg 650 mg PO Q4H PRN Pain 08/18/19 01/06/23 10/13/22 History tablet,extended release (Tylenol 8 Hour) aspirin 81 mg tablet,delayed 81 mg PO DAILY 08/18/19 01/08/23 01/05/23 History release (Adult Low Dose Aspirin) clopidogrel 75 mg tablet (Plavix) 75 mg PO DAILY 08/18/19 01/06/23 01/03/23 History cranberry 500 mg capsule 500 mg PO BID 08/18/19 01/06/23 01/08/23 07:00 History loperamide 2 mg capsule 2 mg PO Q4H PRN Diarrhea 08/18/19 01/08/23 Unknown History melatonin 1 mg tablet 1 mg PO BEDTIME 08/18/19 01/06/23 01/07/23 History nitroglycerin 0.4 mg sublingual 0.4 mg sublingual Q5M PRN Chest 08/18/19 01/08/23 Unknown History tablet (Nitrostat) Pain pantoprazole 20 mg tablet,delayed 40 mg PO DAILY 08/18/19 01/06/23 01/08/23 07:00 History release (Protonix) rosuvastatin 5 mg tablet 5 mg PO DAILY 08/18/19 01/06/23 01/08/23 07:00 History albuterol sulfate 90 mcg/actuation 2 puff inhalation Q6H PRN 09/06/22 01/06/23 Unknown History aerosol inhaler Shortness Of Breath amitriptyline 10 mg tablet 10 mg PO BEDTIME 09/06/22 01/06/23 01/07/23 History docusate sodium 100 mg capsule 200 mg PO BID PRN Constipation 09/06/22 01/08/23 Unknown History fentanyl 25 mcg/hr transdermal 1 patch transdermal Q72H 30 days 12/07/22 01/06/23 01/07/23 Rx patch #10 patches ondansetron HCl 4 mg tablet 4 mg PO Q4H 12/12/22 01/06/23 01/08/23 07:00 History pregabalin 50 mg capsule (Lyrica) 50 mg PO BID 12/12/22 01/06/23 01/08/23 07:00 History docusate sodium 100 mg capsule 100 mg PO BID #14 caps 01/08/23 Unknown Rx (Colace) oxycodone-acetaminophen 5 mg-325 1 tab PO Q6H PRN pain #20 tabs 01/08/23 Unknown Rx mg tablet Allergies Allergy/AdvReac Type Severity Reaction Status Date / Time latex Allergy Unknown Verified 01/08/23 09:57 PFSH Acute PFSH: Medical History Arteriosclerotic coronary artery disease Depressive disorder GERD (gastroesophageal reflux disease) History of CVA (cerebrovascular accident) History of IN (myocardial infarction) Hyperlipidemia Neuropathy PVD (peripheral vascular disease) Surgical History History of back surgery S/P carpal tunnel release S/P cataract surgery S/P coronary angioplasty S/P hysterectomy S/P knee surgery Family History Other CAD (coronary artery disease) Social History Smoking and tobacco status: former smoker Alcohol intake: never Vitals/I&O/Wt Last Vital Signs Temp 97.0 F L 01/08/23 13:12 Pulse 66 01/08/23 14:35 Resp 15 01/08/23 14:35 BP 145/65 01/08/23 14:35 Pulse Ox 93 01/08/23 14:35 O2 Del Method Nasal Cannula 01/08/23 14:35 O2 Flow Rate 2 01/08/23 14:35 01/08/23 01/08/23 01/08/23 06:59 14:59 22:59 Intake Total 100 / 100 Output Total 5 / Balance 95 / 95 Data 01/09/23 09:14 01/09/23 09:14 A&P Assessment and plan (1) Recurrent UTI: (2) Physical deconditioning: (3) Dementia: (4) Hypoxia: (5) History of IN (myocardial infarction): (6) PVD (peripheral vascular disease): Plan Acute hypoxia Patient has used oxygen before History of IN, CHF, I will diurese the patient We will use BiPAP if needed overnight Check BNP and echo is not needed at this point because it was done recently, Respiratory to assess and treat DuoNeb treatment We will get an x-ray ABG, Incentive spirometer Postop day 0 laparoscopic cholecystectomy Attestations Medical Necessity Statement*: Likely will be discharged within 48 hours Diagnoses Recurrent UTI N39.0 Physical deconditioning R53.81 Dementia F03.90 Hypoxia R09.02 History of IN (myocardial infarction) I25.2 PVD (peripheral vascular disease) I73.9
--- NOTE | 2023-01-08 17:17 | P.ANESPOST_ITS ---
Inpatient post-anesthesia follow up: Airway intact: Yes Vital signs: Temperature 97.0 F Pulse Rate 66 Respiratory Rate 15 Blood Pressure 145/65 Pulse Oximetry 93 Oxygen Delivery Me thod Nasal Cannula Oxygen Flow Rate 2 Fraction of Inspir ed Oxygen Hydration adequate: Yes Nausea and vomiting: No Pain level: 2 Mental status: Baseline Additional Comments: At or near baseline room air O2 sats (mid-upper 80s). She had been on O2 @ assisted living facility, but apparently O2 supply . Due to her co- morbidities and probably onging O2 requirements, she will be admitted for additional evaluation and treatment. Stable in PACU.
[2023-01-08 17:28] LABS: D Dimer 1.37 ug/mLFEU (0-0.59)
[2023-01-08] MEDS: enoxaparin 40 mg/0.4 mL Syringe SUBCUT (17:41)
[2023-01-08] MEDS: pantoprazole 40 mg SDV IVP (17:41)
[2023-01-08] MEDS: FUROsemide 10 mg/mL SDV 10mL 40 MG IVP (17:43)
--- NOTE | 2023-01-08 19:38 | XRR_ITS ---
PROCEDURE INFORMATION: Exam: XR Chest Exam date and time: 01/08/2023 7:45 PM Age: 87 years old Clinical indication: Shortness of breath; Additional info: Hypoxia TECHNIQUE: Imaging protocol: Radiologic exam of the chest. Views: 1 view. COMPARISON: 1. CR (CHEST, ) 09/05/2022 5:[address] angio chest PE protcl [id number] 09/06/2022 4:18 PM FINDINGS: Lungs: Mild bibasilar atelectasis. No consolidation or pulmonary edema. Pleural spaces: Chronic blunting of the left costophrenic angle. No pneumothorax or obvious pleural effusion. Heart/Mediastinum: Cardiomediastinal silhouette is stable. Moderate hiatal hernia. Bones/joints: No acute osseous abnormality. XR/XR chest 1V portable [id number] IMPRESSION: 1. Mild bibasilar atelectasis. 2. Moderate hiatal hernia.
[2023-01-09] VITALS (7 sets, daily range): BP systolic 113–121; BP diastolic 63–70; PULSE 75–100; RESP 16–18; TEMP 36.3–37.1; O2SAT 88–98
[2023-01-09 04:05] LABS: C Reactive Protein 24.5 mg/L (0.0-4.9)
--- NOTE | 2023-01-09 08:09 | CT_ITS ---
WS: [id number] CTA OF THE CHEST WITH PULMONARY EMBOLISM PROTOCOL TECHNIQUE: High-resolution contrast enhanced CTA of the chest with coronal and sagittal reformatted i mages with pulmonary embolism protocol. MIP images are also reviewed. CLINICAL INFORMATION: hypoxia COMPARISON: None. DLP: 357.[address] scans at [facility] use at least one of these dose optimization techniques: automated e xposure control; mA and/or kV adjustment per patient size (includes targeted exams where dose is matc hed to clinical indication); or iterative reconstruction. FINDINGS: Some images degraded by respiratory motion. Proximal main pulmonary arteries are normal. Normal segme ntal and subsegmental pulmonary arteries. No evidence pulmonary embolus. Moderate to large esophageal hiatal hernia similar to the prior examination with pneumomediastinum. Free air in the upper abdomen due to recent surgery. Partially visualized postoperative changes in the gallbladder fossa with fluid and surgical clips. Th is is incompletely visualized. Low-attenuation heterogeneous material may represent packing or Surgic el. Recommend clinical correlation. Advanced chronic emphysematous changes. Trace RIGHT and no significant LEFT pleural fluid. Interstiti al edema in the lung bases. No focal pneumonia. Osteopenia. Chronic compression in the lower thoracic spine. Aortic calcification. Coronary calcification. IMPRESSION: 1. No evidence for pulmonary embolus. 2. Advanced chronic emphysematous changes with atelectasis in the lung bases. Trace RIGHT pleural fl uid. No focal pneumonia. 3. Moderate to large esophageal hiatal hernia similar to previous with pneumomediastinum likely due to recent surgery. 4. Free air in the upper abdomen due to recent cholecystectomy. Surgical clips in the gallbladder fo ssa. Fluid in the gallbladder fossa partially visualized. Suspected packing material in the gallbladd er fossa. Recommend clinical correlation. 5. No other new findings. Message LEFT for Jason Bermeo MD at 01/09/2023 1:49 PM. Notified Jason Bermeo MD at 01/09/2023 1:55 PM.
[2023-01-09] MEDS: sennosides-docusate Tablet 1 TAB PO (08:18)
[2023-01-09 09:30] LABS: Mean Corpuscular Hemoglobin 25.6 pg (27-33); Mean Corpuscular Volume 85.3 fl (85-98); Mean Platelet Volume 10.1 fL (7.4-10.4); Platelet Count 211 10^3/cmm (157-399); Red Blood Count 4.69 10^6/uL (3.85-5.65); Red Cell Distribution Width 16.8 % (12.1-15.1); White Blood Count 14.73 10^3/uL (3.29-11.43)
[2023-01-09 09:51] LABS: Alanine Aminotransferase 16 U/L (0-33); Albumin Level 3.8 g/dL (3.5-5.2); Alkaline Phosphatase 136 U/L (35-105); Anion Gap 19.1 (5-19); Aspartate Amino Transferase 39 U/L (0-32); Blood Urea Nitrogen 18 mg/dL (8-23); Calcium 8.3 mg/dL (8.5-10.5); Carbon Dioxide 23 mmol/L (22-29); Chloride 101 mmol/L (98-107); Globulin 3.1 g/dL (1.3-4.6); Glucose 125 mg/dL (65-115); Osmolality Calculated 291 mOsm/kg (285-295); Potassium 4.1 mmol/L (3.5-5.1); Sodium 139 mmol/L (136-145); Total Bilirubin 0.4 mg/dL (0.15-1.2); Total Protein 6.9 g/dL (6.6-8.7)
--- NOTE | 2023-01-09 09:53 | PC.CHAP ---
Pastoral Care Encounter/Spiritual Assessment Type of Contact [] Declined commercial lending vice president visit [] Patient/Family/Request visit [] Outpatient visit [] Follow-up visit [] Physician referral [] Code/Alert [x] Routine visit [] Staff referral [] Actively dying [] Patient sleeping [] Family support [] [] Out of room [] Palliative care [] [] Receiving care in room [] Pre-surgical visit [] Trauma [] Long length of stay [] ICU visit [] Other: Relational/Emotional Strength [x] Patient feels connected with others/family/visitors/staff [] Distress [] Loneliness/isolation [] Abandonment Spirituality of Patient [x] Person of [place] [] Attends Rastafari of their [place] x[] Believes in Prayer [] Reads Bible or Christianity materials [] There are Spiritual issues to be addressed Critical Care Cns Interventions [x] Prayer [] Active listening [] Non-anxious presence [x] Spiritual/emotional support [] Crisis/trauma care [] Spiritual counseling [] Bereavement support [] Provided bereavement packet [] Provided Bible/devotional materials [] Provided toy/stuffed animal, coloring book to patient or family member [] Provided Communion [] Anointing/Ariel [] Salvation [x] Completed spiritual assessment [] Other: Impact on Illness or Injury [] Angry [] Fearful [] Anxious [] Often cries [] Exhaustion [] Unable to work [] Unable to attend amish [] Unable to walk/stand [] Unable to read [] Unable to drive [] Unable to eat/drink [] Unable to sleep [] Unable to be with family [] Patient intubated [] Other: Summary Time spent with patient 5 min
[2023-01-09 11:53] LABS: Absolute Segmented Neutrophil 12.5 10/cmm (1.6-7.1); Band Neutrophils Absolute 0.1 10^3/cmm (0.0-1.2); Segmented Neutrophils 85 %; Total Cells Counted 100 (0-100)
[2023-01-09 11:54] LABS: Absolute Eosinophils 0.1 10^3/cmm (0.0-0.7); Eosinophils 1 %; Lymphocytes 5 %; Lymphocytes Absolute 0.7 10^3/cmm (1.2-3.4); Monocytes Absolute 0.7 10^3/cmm (0.1-0.6)
[2023-01-09 11:55] LABS: Absolute Neutrophil 12.7 10^3/cmm (1.4-6.5); Platelet Estimate Normal (Normal)
[2023-01-09 11:57] LABS: Anisocytosis 1+; Macrocytosis 1+; Microcytosis 1+
[2023-01-09 11:59] LABS: Ovalocytes Trace
[2023-01-09] MEDS: iohexol 350 mg/mL 500 mL Btl (per mL) IV (12:32)
[2023-01-09 12:50] LABS: Magnesium 1.9 mg/dL (1.7-2.3); NT Pro B Type Natriuretic Pept 943 pg/mL (0-450)
[2023-01-09 12:57] LABS: Add Urine Microscopic? NO; Charge for UA Resulting for Rev
[2023-01-09 13:33] LABS: Urine Appearance Clear (CLEAR); Urine Color Yellow (Yellow)
[2023-01-09 13:34] LABS: Bilirubin Urine Neg (Negative); Blood Urine Neg (Negative); Glucose Urine UA Norm (Normal); Ketones Urine 1+ (Negative); Leukocyte Esterase Urine Negative (Negative); Nitrate Urine Negative (Negative); Protein Urine Neg (Negative); Specific Gravity, Urine 1.015 (1.005-1.030); Urobilinogen Urine Norm (Negative); pH Urine 5 (5-7)
--- NOTE | 2023-01-09 14:05 | P.DS_ITS ---
Discharge Providers Date of Admission: 01/08/23 16:04 Date of Discharge: January 09, 2023 Attending Provider at Admission: Devon Liriano DO Attending Provider at Discharge: Jason Bermeo MD Primary Care Provider: Lj Raza DO Diagnoses at Discharge Discharge Diagnosis (1) Recurrent UTI: Status: Acute (2) Physical deconditioning: Status: Acute (3) Dementia: Status: Acute (4) Hypoxia: Status: Acute (5) History of CA (myocardial infarction): Status: Acute (6) PVD (peripheral vascular disease): Status: Acute Reason for Visit Reason for Visit: 66433 K80.20 Hospital Course Hospital Course 87-year-old female resident of assisted living, had laparoscopic cholecystomy done by Dr. Liriano, who consulted hospitalist service for postoperative hypoxia which was related to her hiatal hernia and pleural effusion, CT chest wa s requested for high D-dimer which showed hiatal hernia, pneumoperitoneum related to recent surgery, atelectasis and mild pleural effusion, no signs of PE, at the time of discharge she will require 2 L of oxygen, patient has advanced chronic emphysematous changes on CT chest, she required oxygen in the past however stopped using oxygen. Patient is being discharged back to her facility with stable hemodynamics and oxygen. Chest showing atelectasis my concern for pneumonia is low however we will give her empirical levofloxacin coverage for a week. Physical Exam Narrative: Awake and alert Nonfocal neuro exam Surgical site without any drainage Abdomen soft Pleasant and cooperative On 2 L of oxygen Saturating well Stable hemodynamic Discharge Data Studies Completed and Pending Completed Studies During Hospitalization Category Date Time Status CTA PE [CT angio chest PE protcl [id number]] Routine Cat Scan 01/09/23 08:09 Completed XR chest 1V portable [id number] Routine Exams 01/08/23 19:38 Completed Pending at discharge Category Date Time Status Pathology: Surgical [PTH] Routine Pth 01/08/23 12:14 Received Radiology Impressions Chest X-Ray 01/08/23 19:38 IMPRESSION: 1. Mild bibasilar atelectasis. 2. Moderate hiatal hernia. Laboratory Results WBC 14.73 10^3/uL (3.29-11.43) H 01/09/23 09:14 RBC 4.69 10^6/uL (3.85-5.65) 01/09/23 09:14 Hgb 12.00 g/dL (11.27-16.99) 01/09/23 09:14 Hct 40.0 % (36-47) 01/09/23 09:14 MCV 85.3 fl (85-98) 01/09/23 09:14 MCH 25.6 pg (27-33) L 01/09/23 09:14 MCHC 30.0 g/dL (30-55) 01/09/23 09:14 RDW 16.8 % (12.1-15.1) H 01/09/23 09:14 Plt Count 211 10^3/cmm (157-399) 01/09/23 09:14 MPV 10.1 fL (7.4-10.4) 01/09/23 09:14 Neut % (Auto) 51.8 % 01/08/23 10:13 Lymph % (Auto) 25.7 % 01/08/23 10:13 [place] % (Auto) 19.7 % 01/08/23 10:13 Eos % (Auto) 1.5 % 01/08/23 10:13 Baso % (Auto) 0.9 % 01/08/23 10:13 Neut # (Auto) 2.76 10^3/uL (1.8-7.7) 01/08/23 10:13 Lymph # (Auto) 1.4 10^3/uL (0.8-4.8) 01/08/23 10:13 [place]rie # (Auto) 1.1 10^3/uL (0.2-0.9) H 01/08/23 10:13 Eos # (Auto) 0.1 10^3/uL (0.0-0.8) 01/08/23 10:13 Baso # (Auto) 0.1 10^3/uL (0.0-0.1) 01/08/23 10:13 Nucleated RBC % (auto) 0 % 01/08/23 10:13 Total Counted 100 (0-100) 01/09/23 09:14 Atypical Lymphs % 0.0 % (0-5) 01/09/23 09:14 Absolute Neutrophils 12.7 10^3/cmm (1.4-6.5) H 01/09/23 09:14 Segmented Neutrophils 85 % 01/09/23 09:14 Abs Segm Neuts (Man) 12.5 10/cmm (1.6-7.1) H 01/09/23 09:14 Band Neutrophils 1.0 % 01/09/23 09:14 Abs Band Neuts (Man) 0.1 10^3/cmm (0.0-1.2) 01/09/23 09:14 Absolute Lymphocytes 0.7 10^3/cmm (1.2-3.4) L 01/09/23 09:14 Lymphocytes (Manual) 5 % 01/09/23 09:14 Monocytes (Manual) 5.0 % 01/09/23 09:14 Absolute Monocytes 0.7 10^3/cmm (0.1-0.6) H 01/09/23 09:14 Eosinophils (Manual) 1 % 01/09/23 09:14 Absolute Eosinophils 0.1 10^3/cmm (0.0-0.7) 01/09/23 09:14 Basophils (Manual) 0.0 % 01/09/23 09:14 Absolute Basophils 0.0 10^3/cmm (0.0-0.2) 01/09/23 09:14 Metamyelocytes 3.0 % 01/09/23 09:14 Nucleated RBCs 1.0 /100WBC (0-1) 01/09/23 09:14 Nucleated RBCs # 0.0 /100WBC 01/08/23 10:13 Platelet Estimate Normal (Normal) 01/09/23 09:14 Anisocytosis 1+ H 01/09/23 09:14 Microcytosis 1+ H 01/09/23 09:14 Macrocytosis 1+ H 01/09/23 09:14 Ovalocytes Trace 01/09/23 09:14 D-Dimer 1.37 ug/mLFEU (0-0.59) H 01/08/23 17:07 Sodium 139 mmol/L (136-145) 01/09/23 09:14 Potassium 4.1 mmol/L (3.5-5.1) 01/09/23 09:14 Chloride 101 mmol/L (98-107) 01/09/23 09:14 Carbon Dioxide 23 mmol/L (22-29) 01/09/23 09:14 Anion Gap 19.1 (5-19) H 01/09/23 09:14 BUN 18 mg/dL (8-23) 01/09/23 09:14 Creatinine 1.2 mg/dL (0.5-0.9) H 01/09/23 09:14 GFR Calculation Not Reportable 01/09/23 09:14 Glucose 125 mg/dL (65-115) H 01/09/23 09:14 Calculated Osmolality 291 mOsm/kg (285-295) 01/09/23 09:14 Calcium 8.3 mg/dL (8.5-10.5) L 01/09/23 09:14 Magnesium 1.9 mg/dL (1.7-2.3) 01/09/23 09:14 Total Bilirubin 0.4 mg/dL (0.15-1.2) 01/09/23 09:14 AST 39 U/L (0-32) H 01/09/23 09:14 ALT 16 U/L (0-33) 01/09/23 09:14 Alkaline Phosphatase 136 U/L (35-105) H 01/09/23 09:14 C-Reactive Protein 24.5 mg/L (0.0-4.9) H 01/08/23 17:07 NT-Pro-B Natriuret Pep 943 pg/mL (0-450) H 01/09/23 09:14 Total Protein 6.9 g/dL (6.6-8.7) 01/09/23 09:14 Albumin 3.8 g/dL (3.5-5.2) 01/09/23 09:14 Globulin 3.1 g/dL (1.3-4.6) 01/09/23 09:14 Urine Color Yellow (Yellow) 01/09/23 12:48 Urine Appearance Clear (CLEAR) 01/09/23 12:48 Urine pH 5 (5-7) 01/09/23 12:48 Ur Specific [place] 1.015 (1.005-1.030) 01/09/23 12:48 Urine Protein Neg (Negative) 01/09/23 12:48 Urine Glucose (UA) Norm (Normal) 01/09/23 12:48 Urine Ketones 1+ (Negative) H 01/09/23 12:48 Urine Blood Neg (Negative) 01/09/23 12:48 Urine Nitrate Negative (Negative) 01/09/23 12:48 Urine Bilirubin Neg (Negative) 01/09/23 12:48 Urine Urobilinogen Norm mg/dL (Negative) 01/09/23 12:48 Ur Leukocyte Esterase Negative (Negative) 01/09/23 12:48 Vitals Last Vital Signs Temp 97.4 F L 01/09/23 11:40 Pulse 100 01/09/23 08:00 Resp 16 01/09/23 11:40 BP 114/70 01/09/23 11:40 Pulse Ox 98 01/09/23 08:00 O2 Del Method Nasal Cannula 01/09/23 08:00 O2 Flow Rate 2 01/09/23 08:00 Discharge Plan Discharge Patient Disposition: Home Condition: Stable Prescriptions: New Colace 100 mg capsule 100 mg PO BID Qty: 14 0RF levofloxacin 750 mg tablet 750 mg PO DAILY 7 Days Qty: 7 0RF albuterol sulfate 90 mcg/actuation HFA aerosol inhaler 1 inh inhalation Q6H PRN (Reason: shortness of breath or wheezing) Qty: 6.7 0RF oxycodone-acetaminophen 10-325 mg tablet 1 tab PO Q6H PRN (Reason: pain) Qty: 10 0RF Rx Instructions: Only take half of a tab at a time Continued loperamide 2 mg capsule 2 mg PO Q4H PRN (Reason: Diarrhea) aspirin [Adult Low Dose Aspirin] 81 mg tablet,delayed release (DR/EC) 81 mg PO DAILY acetaminophen [Tylenol 8 Hour] 650 mg tablet extended release 650 mg PO Q4H PRN (Reason: Pain) nitroglycerin [Nitrostat] 0.4 mg tablet, sublingual 0.4 mg SUBLINGUAL Q5M PRN (Reason: Chest Pain) pantoprazole [Protonix] 20 mg tablet,delayed release (DR/EC) 40 mg PO DAILY cranberry 500 mg capsule 500 mg PO BID rosuvastatin 5 mg tablet 5 mg PO DAILY melatonin 1 mg tablet 1 mg PO BEDTIME ondansetron HCl 4 mg tablet 4 mg PO Q4H pregabalin [Lyrica] 50 mg capsule 50 mg PO BID fentanyl 25 mcg/hr patch 72 hour 1 patch transdermal Q72H 30 Days Qty: 10 0RF docusate sodium 100 mg Capsule 200 mg PO BID PRN (Reason: Constipation) albuterol sulfate 90 mcg/actuation Hfa Aerosol Inhaler 2 puff INHALATION Q6H PRN (Reason: Shortness Of Breath) Rx Instructions: never amitriptyline 10 mg tablet 10 mg PO BEDTIME Held clopidogrel [Plavix] 75 mg tablet 75 mg PO DAILY Hold Instructions: Resume on 01/11/23. Discharge Orders: Discharge Order (Routine); Ordered 01/09/23 Ordered By: Jason Bermeo Other Ambulatory Orders: DME: Oxygen (Order) Location: None Selected Ordered By: Jason Bermeo Referrals: Lj Raza DO [Primary Care Provider] - 01/17/23 (Dr. Raza will see you at [place] next Sunday01/17/23) Devon Liriano DO [Physician] - 01/23/23 9:30 am (DR. JAMES OFFICE WILL CALL IN 1-3 DAYS TO MAKE A 2-WEEK FOLLOW-UP ) Discharge Diet: Advance as tolerated Discharge Activity: Resume usual activity Patient Instructions: Oxycodone/Acetaminophen (By mouth), Albuterol (By breathing), Laxative, Stool Softeners (By mouth), Levofloxacin (By mouth), Using Oxygen at Home (GEN), Opioid Safety, Post Anesthesia Care Activity Restrictions/Additional Instructions: Do not soak incision underwater for 2 weeks. Shower daily. Discharge Attestations Time Spent in Discharge Care*: greater than 30 min Quality Metrics Clinical Quality Measures [ No reported AMI, CVA or VTE this stay] Coding Level of Care Code Acute Code for Chg Fwd Diagnoses Recurrent UTI N39.0 Physical deconditioning R53.81 Dementia F03.90 Hypoxia R09.02 History of CA (myocardial infarction) I25.2 PVD (peripheral vascular disease) I73.9
[2023-01-09] MEDS: pantoprazole 40 mg SDV IVP (15:02)
[2023-01-09] MEDS: FUROsemide 10 mg/mL SDV 10mL 40 MG IVP (15:27)
--- NOTE | 2023-01-09 15:29 | PM.PN ---
Subjective Subjective: Patient seen and examined. She reports only that she has bilateral rib pain. Denies any abdominal pain. Vitals/I&O/Wt Last Vital Signs Temp 97.4 F L 01/09/23 11:40 Pulse 100 01/09/23 08:00 Resp 16 01/09/23 11:40 BP 114/70 01/09/23 11:40 Pulse Ox 98 01/09/23 08:00 O2 Del Method Nasal Cannula 01/09/23 08:00 O2 Flow Rate 2 01/09/23 08:00 01/09/23 01/09/23 01/09/23 06:59 14:59 22:59 Intake Total 290 / 290 Output Total 350 / 350 Balance -60 / -60 Physical Exam Narrative: Abdomen soft, nondistended, appropriately tender, incisions intact without erythema or exudate Data 01/09/23 09:14 01/09/23 09:14 A&P Assessment and plan (1) Status post laparoscopic cholecystectomy: (2) Hypoxia: Plan Patient was placed into a bed after cholecystectomy yesterday because her oxygenation was only at 84 to 86%. However she arrived at the hospital with a saturation of 88%. She underwent laparoscopic cholecystectomy without issue. Medical work-up revealed only mild atelectasis with a small effusion and a hiatal hernia. She has been discharged with antibiotics and pain control Attestations Medical Necessity Statement*: Being discharged Coding Level of Care Code Acute Code for Chg Fwd Diagnoses Status post laparoscopic cholecystectomy Z90.49 Hypoxia R09.02
[2023-01-09] MEDS: heparin 5,000 unit/mL INJ 1 mL 5000 UNIT SUBCUT (15:31)
[2023-01-09] MEDS: enoxaparin 40 mg/0.4 mL Syringe SUBCUT (15:32)
== END 2023-01-09 18:40 | disposition home or self-care (01) ==
LOC: MEDSURG 16:39
PROVIDERS: Anesthesiology; Admitting Provider Surgery; PCP Family Medicine; Visit Provider Internal Medicine
PROC: 0FT44ZZ Resection of Gallbladder, Percutaneous Endoscopic Approach (ICD-10-PCS; CPT 47562; principal; 2023-01-08 11:05)
DX: K80.10 Calculus of gallbladder with chronic cholecystitis without obstruction (principal); N39.0 Urinary tract infection, site not specified; R53.81 Other malaise; F03.90 Unspecified dementia, unspecified severity, without behavioral disturbance, psychotic disturbance, mood disturbance, and anxiety; R09.02 Hypoxemia; I25.2 Old myocardial infarction; I73.9 Peripheral vascular disease, unspecified; K44.9 Diaphragmatic hernia without obstruction or gangrene; Z86.73 Personal history of transient ischemic attack (TIA), and cerebral infarction without residual deficits; E78.5 Hyperlipidemia, unspecified; Z87.891 Personal history of nicotine dependence
CPT/HCPCS: 47562; 36415; 71045; 71275; 80053; 81003; 83735; 83880; 85007; 85025; 85027; 85378; 86140; 88304; 94664; 94760; 96372; C9113; G0378; J0690; J1644; J1650; J1940; J2405; J3010; J7030; Q9967

== ENCOUNTER 2023-01-13 11:55 | Emergency (ER) | payer MEDICARE, OTHER, SELFPAY ==
[2023-01-13] VITALS (14 sets, daily range): BP systolic 79–185; BP diastolic 53–103; PULSE 84–135; RESP 15–33; TEMP 35.6–36.9; O2SAT 91–98
--- NOTE | 2023-01-13 12:23 | ED_ITS ---
HPI - Abdominal Pain General: Chief Complaint: Abdominal Pain Stated Complaint: POST OP ABD PAIN Time Seen by Provider: 01/13/23 11:57 Source: patient Mode of arrival: EMS History of Present Illness: 87-year-old female with a history of dementia who presents to the emergency room with complaints of abdominal pain. She has some mild dementia she recently underwent laparoscopic cholecystectomy she was discharged home now she is having abdominal discomfort son is at the bedside states having increasing cough with discolored sputum. This new over the last couple days since her surgery. She is also requiring 2 L by nasal cannula which she baseline does not. She is getting fentanyl and oxycodone for pain despite that she still complaining of abdominal pain in the upper abdomen radiating up into her chest. MD elicited complaint: abdominal pain Onset (ago): day(s) Pain Consistency: constant Location: Epigastric Severity: moderate Exacerbating factors: nothing Relieving factors: nothing Associated Symptoms: Reports bloating, nausea and poor appetite; Denies anorexia, belching, change in bowel habits, change in stool character, chills, coffee ground emesis, constipation, GI cramping, diarrhea, dyspepsia, dysuria, excessive flatus, fever(s), heartburn, hematochezia, hematuria, hematemesis, fecal incontinence, loose stools, melena, syncope and vomiting Review of Systems Const: Reports: fatigue and malaise; Denies: fever(s) or chills Card: Denies: chest pain, palpitations or syncope Resp: Reports: dyspnea and productive cough; Denies: non-productive cough GI: Reports: abdominal pain, nausea and bloating; Denies: vomiting, hematemesis, coffee ground emesis, heartburn, diarrhea, constipation, GI cramping, belching, excessive flatus, fecal incontinence, change in bowel habits, change in stool character, hematochezia or melena : Denies: dysuria or hematuria Skin/Breast: Denies: rash or pruritus PFSH ED PFSH: Medical History Arteriosclerotic coronary artery disease Dementia Depressive disorder GERD (gastroesophageal reflux disease) History of CVA (cerebrovascular accident) History of GA (myocardial infarction) Hyperlipidemia Hypoxia Neuropathy Physical deconditioning PVD (peripheral vascular disease) Recurrent UTI Surgical History History of back surgery S/P carpal tunnel release S/P cataract surgery S/P coronary angioplasty S/P hysterectomy S/P knee surgery Status post laparoscopic cholecystectomy Family History Other CAD (coronary artery disease) Social History Smoking and tobacco status: former smoker Alcohol intake: never Physical Exam Const: ORIENTATION/CONSCIOUSNESS: Yes awake HENMT: COMMON NORMALS: normocephalic, atraumatic and hearing grossly normal bilaterally HEAD & SCALP: normocephalic and atraumatic Resp: COMMON NORMALS: normal respiratory effort, No retractions and No use of accessory muscles AUSCULTATION: rhonchi Cardio: COMMON NORMALS: regular rate, regular rhythm and No murmurs present (Cardio) RATE: regular rate RHYTHM: regular rhythm GI: COMMON NORMALS: Soft to palpation and No hepatosplenomegaly present AUSCULTATION: Yes normoactive bowel sounds PALPATION: Yes Soft to palpation, No Tenderness to palpation present (GI), No Guarding due to palpation present (GI) and Yes No hepatosplenomegaly present Extremity: COMMON NORMALS: normal to inspection, capillary refill normal, no clubbing, cyanosis or edema, no calf tenderness and no pedal edema Skin: COMMON NORMALS: no rashes or lesions noted GENERAL SKIN EXAM: no rashes or lesions noted Course Vital Signs: Vital signs: Vital Signs Temperature 96.0 F L 01/13/23 16:30 Pulse Rate 108 H 01/13/23 17:26 Respiratory Rate 28 H 01/13/23 17:26 Blood Pressure 133/74 01/13/23 17:26 Pulse Oximetry 92 01/13/23 17:26 Oxygen Delivery Me thod Nasal Cannula 01/13/23 17:26 Oxygen Flow Rate 2 01/13/23 17:26 MDM - Abdominal Pain Medical Decision Making Patient acutely ill with Corina versus abscess possible a sending cholangitis and what appears to be obstruction of the common bile duct suspect choledocholithiasis potentially. She had a lap wendy for choledocholithiasis. She also has a left lower lobe pneumonia with a new oxygen deficit. We do not have the capability to do ERCP and she may need IR drain as well for the biloma. Unable to transfer to [facility] due to [facility] not having anyone available for ERCP and [facility] no available beds. [facility] is willing to accept patient on transfer. Discussed with family they are agreeable started on Vanco and Zosyn. Discussed findings with the patient. Family did make her Do Not Recussitate. After she had been here time she began develop hypotension and tachycardia she is given IV fluids and started on Levophed. Medical Records I reviewed the patient's medical records. Lab Data I reviewed the patient's lab results. 01/13/23 13:00 01/13/23 13:00 Labs/Radiology: Radiology Impressions Abdomen/Pelvis CT 01/13/23 12:27 IMPRESSION: 1. 6.3 x 4.1 x 6.1 cm fluid and gas collection in the gallbladder fossa consistent with biloma, seroma, or abscess. No intraperitoneal free fluid. 2. Ill-defined intermediate density filling defects in the distal common bile duct measuring 9 x 6 x 18 mm. Possible noncalcified stones or blood products. Neoplasm is not excluded. 3. Mild extrahepatic biliary dilation may represent reservoir effect from cholecystectomy or distal common bile duct obstruction. 4. Extrahepatic biliary enhancement may be related to recent surgery or cholangitis. 5. Increased left lower lobe consolidation since 01/09/2023 consistent with progressive infection and/or atelectasis. 6. 9 mm right lower lobe pulmonary nodule. The nodule is partially obscured on 01/09/2023.For both low risk and high risk patients, consider CT Chest at 3 months, PET/CT, or biopsy. (Reference: Kathia) 7. Incidental findings above. REFERENCES: Kathia H, et al. Guidelines for Management of Incidental Pulmonary Nodules Detected on CT Images: From the Fleischner Society 2017. Radiology. 2017;284(1):228-243. ADDENDUM: 01/13/23 1455 THIS REPORT CONTAINS FINDINGS THAT MAY BE CRITICAL TO PATIENT CARE. The findings were verbally communicated via telephone conference with ROLANDO PAPPAS at 2:49 PM CDT on 01/13/2023. The findings were acknowledged and understood. Chest X-Ray 01/13/23 12:28 IMPRESSION: 1. Persistent opacity in the left lung base and mildly increased volume loss in the left hemithorax since 01/08/2023 suggests atelectasis. 2. Blunted left lateral costophrenic sulcus may be related to pulmonary opacity or diaphragmatic elevation. Small effusion not excluded. Laboratory Results WBC 15.27 10^3/uL (3.29-11.43) H 01/13/23 13:00 RBC 4.40 10^6/uL (3.85-5.65) 01/13/23 13:00 Hgb 11.10 g/dL (11.27-16.99) L 01/13/23 13:00 Hct 36.6 % (36-47) 01/13/23 13:00 MCV 83.2 fl (85-98) L 01/13/23 13:00 MCH 25.2 pg (27-33) L 01/13/23 13:00 MCHC 30.3 g/dL (30-55) 01/13/23 13:00 RDW 16.4 % (12.1-15.1) H 01/13/23 13:00 Plt Count 282 10^3/cmm (157-399) 01/13/23 13:00 MPV 10.4 fL (7.4-10.4) 01/13/23 13:00 Neut % (Auto) 77.8 % 01/13/23 13:00 Lymph % (Auto) 8.8 % 01/13/23 13:00 Pershing % (Auto) 8.7 % 01/13/23 13:00 Eos % (Auto) 0.5 % 01/13/23 13:00 Baso % (Auto) 0.5 % 01/13/23 13:00 Neut # (Auto) 11.87 10^3/uL (1.8-7.7) H 01/13/23 13:00 Lymph # (Auto) 1.3 10^3/uL (0.8-4.8) 01/13/23 13:00 Pershing # (Auto) 1.3 10^3/uL (0.2-0.9) H 01/13/23 13:00 Eos # (Auto) 0.1 10^3/uL (0.0-0.8) 01/13/23 13:00 Baso # (Auto) 0.1 10^3/uL (0.0-0.1) 01/13/23 13:00 Nucleated RBC % (auto) 0 % 01/13/23 13:00 Nucleated RBCs # 0.0 /100WBC 01/13/23 13:00 Sodium 129 mmol/L (136-145) L 01/13/23 13:00 Potassium 3.2 mmol/L (3.5-5.1) L 01/13/23 13:00 Chloride 90 mmol/L (98-107) L 01/13/23 13:00 Carbon Dioxide 26 mmol/L (22-29) 01/13/23 13:00 Anion Gap 16.2 (5-19) 01/13/23 13:00 BUN 38 mg/dL (8-23) H 01/13/23 13:00 Creatinine 1.2 mg/dL (0.5-0.9) H 01/13/23 13:00 GFR Calculation Not Reportable 01/13/23 13:00 Glucose 179 mg/dL (65-115) H 01/13/23 13:00 Calculated Osmolality 282 mOsm/kg (285-295) L 01/13/23 13:00 Lactic Acid 1.4 mmol/L (0.5-2.2) 01/13/23 13:00 Calcium 9.0 mg/dL (8.5-10.5) 01/13/23 13:00 Total Bilirubin 0.4 mg/dL (0.15-1.2) 01/13/23 13:00 AST 20 U/L (0-32) 01/13/23 13:00 ALT 8 U/L (0-33) 01/13/23 13:00 Alkaline Phosphatase 133 U/L (35-105) H 01/13/23 13:00 Total Protein 8.0 g/dL (6.6-8.7) 01/13/23 13:00 Albumin 3.4 g/dL (3.5-5.2) L 01/13/23 13:00 Globulin 4.6 g/dL (1.3-4.6) 01/13/23 13:00 Lipase 53 U/L (13-60) 01/13/23 13:00 Urine Color Yellow (Yellow) 01/13/23 13:05 Urine Appearance Sl hazy (CLEAR) A 01/13/23 13:05 Urine pH 5 (5-7) 01/13/23 13:05 Ur Specific [place] 1.015 (1.005-1.030) 01/13/23 13:05 Urine Protein Trace (Negative) 01/13/23 13:05 Urine Glucose (UA) Norm (Normal) 01/13/23 13:05 Urine Ketones 1+ (Negative) H 01/13/23 13:05 Urine Blood Neg (Negative) 01/13/23 13:05 Urine Nitrate Negative (Negative) 01/13/23 13:05 Urine Bilirubin Neg (Negative) 01/13/23 13:05 Urine Urobilinogen Norm mg/dL (Negative) 01/13/23 13:05 Ur Leukocyte Esterase 2+ (Negative) H 01/13/23 13:05 Urine RBC None /hpf (0-2) 01/13/23 13:05 Urine WBC 15-25 /hpf (0-5) H 01/13/23 13:05 Ur Squamous Epith Cells 10-15 /hpf (0-5) H 01/13/23 13:05 Amorphous Sediment Not Reportable 01/13/23 13:05 Urine Bacteria 1+ /hpf (NONE) H 01/13/23 13:05 All radiology interpretation(s) finalized by discharge Discharge Plan Discharge Patient Disposition: Xfer Short-Term Hosp Clinical Impression: Biloma following surgery, S/P cholecystectomy, Ascending cholangitis, Left lower lobe pneumonia, Choledocholithiasis Condition: Stable Referrals: Lj Raza DO [Primary Care Provider] - Coding Level of Care Code ED Geography Instructor for Dominick Brewster
--- NOTE | 2023-01-13 12:27 | CTR_ITS ---
PROCEDURE INFORMATION: Exam: CT Abdomen And Pelvis With Contrast Exam date and time: 01/13/2023 2:14 PM Age: 87 years old Clinical indication: Abdominal pain; Generalized; Prior surgery; Surgery date: 3-7 days post-operative; Surgery type: Gb; Additional info: Abd pain TECHNIQUE: Imaging protocol: Computed tomography of the abdomen and pelvis with contrast. Radiation optimization: All CT scans at this facility use at least one of these dose optimization techniques: automated exposure control; mA and/or kV adjustment per patient size (includes targeted exams where dose is matched to clinical indication); or iterative reconstruction. Contrast material: OMNI 350; Contrast volume: 100 ml; Contrast route: INTRAVENOUS (IV); REPORTING DATA: Count of CT and Cardiac NM exams in prior 12 months: This patient has received 5 known CTs and 0 known cardiac nuclear medicine studies in the 12 months prior to the current study. COMPARISON: US gall bladder [id number] 09/06/2022 7:42 PM RADIATION DOSE METRICS: Total DLP (mGy-cm): 470.16 FINDINGS: Lungs: There is a noncalcified pulmonary nodule in the right lower lobe visible on series 3, image 13 measuring 9 mm. There is subsegmental atelectasis in the right lung base. There is dependent consolidation in the left lower lobe. Diaphragm: There is mild asymmetric elevation of the left hemidiaphragm. There is a moderate size sliding-type hiatal hernia which is stable since 01/09/2023. Liver: The liver parenchyma is unremarkable. Gallbladder and bile ducts: Cholecystectomy clips are present. There is a 6.3 x 4.1 cm axial, 6.1 cm craniocaudal dimension fluid and gas collection of near water attenuation in the gallbladder fossa. There is mild dilation of the common bile duct and central intrahepatic ducts. Common bile duct measures up to 9 mm diameter. There is an irregular focus of intermediate/high density in the distal common bile duct measuring approximately 9 x 6 mm axial dimension and 18 mm craniocaudal dimension. There is diffuse enhancement of the extrahepatic bile ducts. Pancreas: There is moderate atrophy of the pancreas. Spleen: The spleen is unremarkable. Adrenal glands: The adrenal glands are unremarkable. Kidneys and ureters: The kidneys are unremarkable. No hydronephrosis or stones. No ureteral dilation. Stomach and bowel: There is mild gaseous distention of the intra-abdominal portion of the stomach. There is mild fluid distention of proximal small bowel without campos dilation or transition point to indicate obstruction. The cecum is moderately stool distended. The ascending and transverse colon are mildly stool distended. Descending and sigmoid colon are nondistended. There is mild sigmoid colonic diverticulosis without evidence of diverticulitis. Appendix: Not visible. Intraperitoneal space: No free fluid in the abdomen or pelvis. Trace intraperitoneal free air in the upper abdomen is consistent with recent abdominal surgery and is decreased since 01/09/2023. Vasculature: There is moderate aortic atherosclerotic disease. The portal, splenic and superior mesenteric veins are patent. There are moderate perirectal varices. Lymph nodes: There is no lymphadenopathy in the retroperitoneum, mesentery, pelvis or inguinal regions. Urinary bladder: The bladder is distended and thin walled. Reproductive: The uterus is absent. There is no adnexal mass or large cyst. Bones/joints: There is moderate degenerative disease in the lumbar spine. There are screws in the posterior elements at L5 and S1. There is osseous intervertebral fusion at L3-L4 with grade 2 anterolisthesis of L3 on L4. There is osseous fusion of the posterior elements from L3 through S1. There are mild age-indeterminate compression fractures at L5 and L1. There is a moderate age-indeterminate compression fracture at T10. There is healed deformity of the left posterior ilium. No acute pelvic fracture is seen. There is moderate degenerative disease of the right hip. There is mild degenerative disease at the left hip. Soft tissues: The abdominal wall is intact. CT/CT abdomen pelvis w con* [id number] IMPRESSION: 1. 6.3 x 4.1 x 6.1 cm fluid and gas collection in the gallbladder fossa consistent with biloma, seroma, or abscess. No intraperitoneal free fluid. 2. Ill-defined intermediate density filling defects in the distal common bile duct measuring 9 x 6 x 18 mm. Possible noncalcified stones or blood products. Neoplasm is not excluded. 3. Mild extrahepatic biliary dilation may represent reservoir effect from cholecystectomy or distal common bile duct obstruction. 4. Extrahepatic biliary enhancement may be related to recent surgery or cholangitis. 5. Increased left lower lobe consolidation since 01/09/2023 consistent with progressive infection and/or atelectasis. 6. 9 mm right lower lobe pulmonary nodule. The nodule is partially obscured on 01/09/2023.For both low risk and high risk patients, consider CT Chest at 3 months, PET/CT, or biopsy. (Reference: Kathia) 7. Incidental findings above. REFERENCES: Kathia Boyd, et al. Guidelines for Management of Incidental Pulmonary Nodules Detected on CT Images: From the Fleischner Society 2017. Radiology. 2017;284(1):228-243.
--- NOTE | 2023-01-13 12:28 | XRR_ITS ---
PROCEDURE INFORMATION: Exam: XR Chest Exam date and time: 01/13/2023 12:31 PM Age: 87 years old Clinical indication: Cough; Additional info: Dyspnea/cough TECHNIQUE: Imaging protocol: Radiologic exam of the chest. Views: 1 view. COMPARISON: CR (CHEST, ) 01/08/2023 7:45 PM FINDINGS: Lungs: Mild fine reticular opacity in both lungs. No consolidation on the right. Ill-defined opacity is seen in the left lung base. There is mild volume loss in the left lung and leftward mediastinal shift. Pleural spaces: No pneumothorax. The left lateral costophrenic sulcus is blunted. Heart/Mediastinum: Retrocardiac gas consistent with hiatal hernia. The cardiac silhouette is within normal limits of size given AP technique. Diaphragm: Mild asymmetric elevation of the left hemidiaphragm. Bones/joints: Bones are unremarkable. XR/XR chest 1V portable [id number] IMPRESSION: 1. Persistent opacity in the left lung base and mildly increased volume loss in the left hemithorax since 01/08/2023 suggests atelectasis. 2. Blunted left lateral costophrenic sulcus may be related to pulmonary opacity or diaphragmatic elevation. Small effusion not excluded.
--- NOTE | 2023-01-13 12:30 | ECG_ITS ---
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 Measurements Intervals [place] Rate: 82 P: 232 ME: 115 QRS: -22 QRSD: 120 T: 79 QT: 430 QTc: 504 Interpretive Statements SINUS RHYTHM WITH SHORT ME INTERVAL WITH OCCASIONAL SUPRAVENTRICULAR PREMATURE COMPLEXES BORDERLINE LEFT AXIS DEVIATION [QRS AXIS < -20] MODERATE INTRAVENTRICULAR CONDUCTION DELAY [110+ ms QRS DURATION] NONSPECIFIC ST & T-WAVE ABNORMALITY Compared to ECG 09/05/2022 23:33:21 Short ME interval now present Intraventricular conduction delay now present T-wave abnormality now present Myocardial infarct finding no longer present Electronically Signed On 01-13-2023 20:30:21 CDT by Juan Crowley M.D. [id number]
[2023-01-13 13:10] LABS: Basophils # 0.1 10^3/uL (0.0-0.1); Basophils % 0.5 %; Eosinophils # 0.1 10^3/uL (0.0-0.8); Eosinophils % 0.5 %; Hematocrit 36.6 % (36-47); Lymphocytes # 1.3 10^3/uL (0.8-4.8); Lymphocytes % 8.8 %; Mean Corpuscular HGB Conc 30.3 g/dL (30-55); Mean Corpuscular Hemoglobin 25.2 pg (27-33); Mean Corpuscular Volume 83.2 fl (85-98); Mean Platelet Volume 10.4 fL (7.4-10.4); Monocytes # 1.3 10^3/uL (0.2-0.9); Monocytes % 8.7 %; Neutrophils # 11.87 10^3/uL (1.8-7.7); Neutrophils % 77.8 %; Nucleated Red Blood Cells % 0 %; Platelet Count 282 10^3/cmm (157-399); Red Cell Distribution Width 16.4 % (12.1-15.1); White Blood Count 15.27 10^3/uL (3.29-11.43)
[2023-01-13 13:37] LABS: Add Urine Microscopic? YES; Bilirubin Urine Neg (Negative); Blood Urine Neg (Negative); Glucose Urine UA Norm (Normal); Ketones Urine 1+ (Negative); Leukocyte Esterase Urine 2+ (Negative); Nitrate Urine Negative (Negative); Protein Urine Trace (Negative); Specific Gravity, Urine 1.015 (1.005-1.030); Urine Appearance SL Hazy (CLEAR); Urine Color Yellow (Yellow); Urobilinogen Urine Norm (Negative); WBC Urine 15-25 /hpf (0-5); pH Urine 5 (5-7)
[2023-01-13 13:38] LABS: Add Urine Culture? No; Bacteria Urine 1+ /hpf
[2023-01-13 14:05] LABS: Alanine Aminotransferase 8 U/L (0-33); Albumin Level 3.4 g/dL (3.5-5.2); Alkaline Phosphatase 133 U/L (35-105); Anion Gap 16.2 (5-19); Aspartate Amino Transferase 20 U/L (0-32); Blood Urea Nitrogen 38 mg/dL (8-23); Carbon Dioxide 26 mmol/L (22-29); Chloride 90 mmol/L (98-107); Globulin 4.6 g/dL (1.3-4.6); Glucose 179 mg/dL (65-115); Lipase 53 U/L (13-60); Osmolality Calculated 282 mOsm/kg (285-295); Potassium 3.2 mmol/L (3.5-5.1); Sodium 129 mmol/L (136-145); Total Bilirubin 0.4 mg/dL (0.15-1.2)
[2023-01-13] MEDS: iohexol 350 mg/mL 500 mL Btl (per mL) IV (14:16)
[2023-01-13] MEDS: sodium chloride 0.9% 1,000 ML 999 ML IV (14:46)
[2023-01-13 15:17] LABS: Lactic Sepsis W/Reflex 1.4 mmol/L (0.5-2.2)
[2023-01-13] MEDS: piperacillin-tazobactam 3.375 GM in sodium chloride 0.9% (plus) 50 ML IV (15:58)
[2023-01-13] MEDS: vancomycin 1,000 MG in sodium chloride 0.9% 250 ML 250 MG IV (16:09)
--- NOTE | 2023-01-13 17:06 | PC.NURSE ---
fentanyl patch Fentanyl patch removed from upper right back per Dr. Pappas. Witnessed at bedside by Regino Downey RN
[2023-01-13] MEDS: sodium chloride 0.9% 1,000 ML 125 ML IV (19:00)
== END 2023-01-13 19:59 | disposition short-term general hospital (02) ==
PROVIDERS: Emergency Provider Family Medicine; PCP Family Medicine
DX: T81.89XA Other complications of procedures, not elsewhere classified, initial encounter (principal); Z90.49 Acquired absence of other specified parts of digestive tract; K83.09 Other cholangitis; J18.9 Pneumonia, unspecified organism; K80.50 Calculus of bile duct without cholangitis or cholecystitis without obstruction; Z87.891 Personal history of nicotine dependence; I25.10 Atherosclerotic heart disease of native coronary artery without angina pectoris; F03.90 Unspecified dementia, unspecified severity, without behavioral disturbance, psychotic disturbance, mood disturbance, and anxiety; Z86.73 Personal history of transient ischemic attack (TIA), and cerebral infarction without residual deficits; I25.2 Old myocardial infarction; E78.5 Hyperlipidemia, unspecified; Z98.61 Coronary angioplasty status; Y83.8 Other surgical procedures as the cause of abnormal reaction of the patient, or of later complication, without mention of misadventure at the time of the procedure
CPT/HCPCS: 36415; 51702; 71045; 74177; 80053; 81001; 83605; 83690; 85025; 87040; 93005; 96365; 96367; 99285; J2543; J3370; J7030; J7050; J7060; Q9967

== ENCOUNTER 2023-02-05 15:35 | Outpatient (CLI) | payer MEDICARE, OTHER, SELFPAY ==
[2023-02-05 16:33] LABS: Add Urine Culture? Yes; Add Urine Microscopic? YES; Bacteria Urine 1+ /hpf; Bilirubin Urine Neg (Negative); Blood Urine Trace (Negative); Glucose Urine UA Norm (Normal); Ketones Urine 1+ (Negative); Leukocyte Esterase Urine 2+ (Negative); Nitrate Urine Negative (Negative); Protein Urine Trace (Negative); RBC Urine RARE /hpf (0-2); Specific Gravity, Urine 1.015 (1.005-1.030); Urine Appearance SL Hazy (CLEAR); Urine Color Dark Yellow (Yellow); Urobilinogen Urine Norm (Negative); WBC Urine 15-25 /hpf (0-5); pH Urine 6 (5-7)
== END 2023-02-05 15:36 | disposition home or self-care (01) ==
PROVIDERS: PCP Family Medicine; Visit Provider Family Medicine
DX: A41.9 Sepsis, unspecified organism (principal)
CPT/HCPCS: 81001; 87086

== ENCOUNTER 2023-02-22 22:41 | Outpatient (CLI) | payer MEDICARE, OTHER, SELFPAY ==
[2023-02-22 23:07] LABS: Add Urine Microscopic? YES; Bacteria Urine 4+ /hpf; Bilirubin Urine Neg (Negative); Blood Urine 2+ (Negative); Glucose Urine UA Norm (Normal); Ketones Urine Negative (Negative); Leukocyte Esterase Urine Trace (Negative); Nitrate Urine Positive (Negative); Protein Urine Neg (Negative); Specific Gravity, Urine 1.005 (1.005-1.030); Urine Appearance Hazy (CLEAR); Urine Color Yellow (Yellow); Urobilinogen Urine Neg (Negative); WBC Urine 15-25 /hpf (0-5); pH Urine 7 (5-7)
[2023-02-22 23:08] LABS: Add Urine Culture? No
== END 2023-02-22 22:42 | disposition home or self-care (01) ==
LOC: LAB 22:43
PROVIDERS: PCP Family Medicine; Visit Provider Family Medicine
DX: Z01.89 Encounter for other specified special examinations (principal)
CPT/HCPCS: 81001; 87077; 87086; 87186

== ENCOUNTER 2023-03-17 20:00 | Outpatient (CLI) | payer MEDICARE, OTHER, SELFPAY ==
[2023-03-17 20:07] LABS: Add Urine Microscopic? NO; Charge for UA Resulting for Rev
[2023-03-17 20:23] LABS: Bilirubin Urine Neg (Negative); Blood Urine Neg (Negative); Glucose Urine UA Norm (Normal); Ketones Urine Negative (Negative); Leukocyte Esterase Urine Negative (Negative); Nitrate Urine Negative (Negative); Protein Urine Neg (Negative); Specific Gravity, Urine 1.005 (1.005-1.030); Urine Appearance Clear (CLEAR); Urine Color Yellow (Yellow); Urobilinogen Urine Neg (Negative); pH Urine 7 (5-7)
== END 2023-03-17 20:01 | disposition home or self-care (01) ==
LOC: LAB 20:03
PROVIDERS: PCP Family Medicine; Visit Provider Family Medicine
DX: N39.0 Urinary tract infection, site not specified (principal)
CPT/HCPCS: 81003; 87086

== ENCOUNTER → 2023-04-25 14:04 | Outpatient (BNVA) | payer MEDICARE, OTHER, SELFPAY | PROVIDERS: PCP Family Medicine; Visit Provider Podiatrist Foot & Ankle Surgery | DX: I73.9 Peripheral vascular disease, unspecified (principal); L60.3 Nail dystrophy | CPT/HCPCS: 11721 ==

== ENCOUNTER 2023-05-03 15:36 | Emergency (ER) | payer MEDICARE, OTHER, SELFPAY ==
[2023-05-03 15:41] VITALS: BP 150/51; PULSE 64; RESP 18; TEMP 37.1; O2SAT 99; BMI 25.8
--- NOTE | 2023-05-03 15:43 | CTR_ITS ---
PROCEDURE INFORMATION: Exam: CT Head Without Contrast Exam date and time: 05/03/2023 4:05 PM Age: 87 years old Clinical indication: Injury or trauma; Fall; Bleeding/hemorrhage and blunt trauma (contusions or hematomas); Additional info: Fall injury TECHNIQUE: Imaging protocol: Computed tomography of the head without contrast. Radiation optimization: All CT scans at this facility use at least one of these dose optimization techniques: automated exposure control; mA and/or kV adjustment per patient size (includes targeted exams where dose is matched to clinical indication); or iterative reconstruction. COMPARISON: CT head wo con* [id number] 09/28/2022 4:09 PM RADIATION DOSE METRICS: Total DLP (mGy-cm): 1102 FINDINGS: Brain: There is no midline shift. Minimal local effacement of sulci along the medial aspect of the left hemisphere. Moderate atrophy and findings of chronic small-vessel disease. Chronic lacune within the basal ganglia bilaterally with extension into the anterior limb of the right internal capsule. No acute intra-axial hemorrhage identified. Chronic lacunar infarct within the superior right cerebellar hemisphere. No subarachnoid hemorrhage is identified. A large acute subdural hematoma is present extending along the left aspect of the falx from the anterior to posterior, and posteroinferiorly along the superior aspect of the left tentorial leaflet. The subdural measures up to 7 mm transverse thickness at the frontal level, and up to approximately 5 mm on the left tentorial leaflet. This accounts for local effacement of left hemispheric sulci. Cerebral ventricles: No Hydrocephalus. Paranasal sinuses: Clear. Mastoid air cells: Clear. Bones/joints: No acute osseous abnormality Identified Soft tissues: Unremarkable. Notes: Please note CT does not detect all acute ischemic abnormalities; if indicated, consider MRI with diffusion, or follow-up Head CT CT/CT head wo con* [id number] IMPRESSION: Acute parafalcine subdural hematoma involving the left anterior and posterior aspect of the falx with extension along the superior aspect of the left tentorial leaflet. There is slight local mass effect primarily in terms of diminishment of adjacent sulci but no midline shift. Atrophy and findings of chronic small-vessel disease, with chronic lacune as noted above.
--- NOTE | 2023-05-03 15:43 | CTR_ITS ---
PROCEDURE INFORMATION: Exam: CT Cervical Spine Without Contrast Exam date and time: 05/03/2023 4:05 PM Age: 87 years old Clinical indication: Injury or trauma; Fall; Blunt trauma; Additional info: Fall injury TECHNIQUE: Imaging protocol: Computed tomography of the cervical spine without contrast. Radiation optimization: All CT scans at this facility use at least one of these dose optimization techniques: automated exposure control; mA and/or kV adjustment per patient size (includes targeted exams where dose is matched to clinical indication); or iterative reconstruction. COMPARISON: CT head wo con* [id number] 05/03/2023 4:05 PM RADIATION DOSE METRICS: Total DLP (mGy-cm): 163 FINDINGS: Bones/joints: There is fusion of the left C4-C5 facet joint. There is trace anterolisthesis of C2 on C3 and retrolisthesis of C5 on C6 and trace anterolisthesis of C7 on T1. There are moderate multilevel degenerative changes. These include disc space narrowing at C3-C4, C5-C6 and C6-C7. The C4-C5 disc space is fused. There is no widening of the pre dens space. There is no acute fracture identified. Prevertebral and retropharyngeal spaces: No prevertebral soft tissue swelling identified. Lungs: Limited visualization of the lung apices demonstrates findings of suspected emphysema and increased interstitial density. Pleural spaces: There is no apical pneumothorax identified. Vasculature: Prominent vascular calcification in the carotid bifurcation regions, and the visualized aorta. Soft tissues: Soft tissue windows demonstrate no thyroid enlargement. CT/CT cervical spin wo con* [id number] IMPRESSION: 1. No acute cervical spine fracture identified. 2. Minimal listhesis detailed above, favored degenerative. 3. Pulmonary disease suggesting emphysema and possibly chronic interstitial process.
--- NOTE | 2023-05-03 15:43 | XRR_ITS ---
PROCEDURE INFORMATION: Exam: XR Right Hip Exam date and time: 05/03/2023 3:50 PM Age: 87 years old Clinical indication: Injury or trauma; Fall; Sprain or strain; Right; Hip; Additional info: Injury, include pelvis, fall injury, include pelvis TECHNIQUE: Imaging protocol: Radiologic exam of the right hip. Views: 1 view hip with pelvis when performed. COMPARISON: CT abdomen pelvis w con* [id number] 01/13/2023 2:14 PM FINDINGS: Bones/joints: Unremarkable. No acute fracture identified. Healed fracture deformity of the left superior and inferior pubic rami corresponding with 01/13/2023 is noted. Partially imaged, screw in the right sacrum. Soft tissues: Unremarkable. XR/XR hip RT 2-3V wo/w pel* [id number] IMPRESSION: 1. No acute osseous abnormality identified.
--- NOTE | 2023-05-03 15:43 | W.ED.LOWEXIN ---
HPI - Extremity Injury (Lower) General: Chief Complaint: Fall Stated Complaint: fall Time Seen by Provider: 05/03/23 15:38 History of Present Illness: 87-year-old female comes in today for complaints of fall injury. Patient was working in her kitchen when she reports tripping after a short spell of dizziness when she stood up from the kitchen table. Patient reports falling onto the right side. Patient reports some right hip pain with weightbearing. Patient reports pain 10 out of 10 when bearing weight. Patient is on clopidogrel and aspirin daily. Patient has a history of dementia, GERD, hyperlipidemia, and CAD. Patient is a DNR and resides at [facility]. Review of Systems General: Reports: 10 or more systems reviewed and unremarkable except in HPI and below Musc: Reports: extremity pain PFSH ED PFSH: Medical History Hypoxia Recurrent UTI Physical deconditioning Dementia Hyperlipidemia Arteriosclerotic coronary artery disease History of CVA (cerebrovascular accident) Depressive disorder GERD (gastroesophageal reflux disease) Neuropathy PVD (peripheral vascular disease) History of CT (myocardial infarction) Surgical History Status post laparoscopic cholecystectomy S/P coronary angioplasty History of back surgery S/P knee surgery S/P hysterectomy S/P carpal tunnel release S/P cataract surgery Family History Other CAD (coronary artery disease) Social History Smoking and tobacco/nicotine status: former use of tobacco/nicotine Alcohol intake: never Physical Exam Const: COMMON NORMALS: alert HENMT: COMMON NORMALS: normocephalic and atraumatic HEAD & SCALP: normocephalic and atraumatic THROAT: posterior oropharynx normal Eye: OTHER: Pupils are 2 mm, no cataract surgery poor response to light. Neck/C-Spine: COMMON NORMALS: full ROM Chest: COMMONS NORMALS: normal palpation of entire chest wall Resp: COMMON NORMALS: normal respiratory effort and clear to auscultation bilaterally AUSCULTATION: clear to auscultation bilaterally GI: COMMON NORMALS: non-tender : COMMON NORMALS: Yes no CVA tenderness BLADDER/KIDNEY EXAM: Yes no CVA tenderness Back/Pelvis: COMMON NORMALS: no CVA tenderness and thoracic and lumbar spine normal to inspection Extremity: RIGHT LOWER EXTREMITY: Yes hip joint (Lateral hip pain) Neuro: SENSORIUM/ORIENTATION: Yes alert Skin: COMMON NORMALS: turgor normal GENERAL SKIN EXAM: turgor normal Course ED course: 1649, notified by radiology, Dr. Alcocer, he noted subdural hematoma of substantial size to the brain. I discussed this with the granddaughter who wanted us to wait until her father, the HUGH, arrived to further decide on transport or other treatment plans. Reviewed plan with Dr. Quinones, attending ER physician, who agreed. 1744, consulted with transport, Danni who accepted ER to ER for neurology, Dr. Camacho. Patient will look into but does not respond to questions at this time which is different the remainder of exam remains unchanged. No pupillary response was noted in prior exam and continues to be the same because of patient's prior cataract surgery. Vital Signs: Vital signs: Vital Signs Temperature 98.7 F 05/03/23 15:41 Pulse Rate 67 05/03/23 18:56 Respiratory Rate 15 05/03/23 18:55 Blood Pressure 169/99 05/03/23 18:56 Pulse Oximetry 94 05/03/23 18:56 Oxygen Delivery Me thod Nasal Cannula 05/03/23 18:00 Oxygen Flow Rate 2 05/03/23 18:00 MDM - Extremity Injury (Lower) Medical Decision Making 87-year-old female was brought in by EMS for concerns of fall at [facility]. Patient reported right hip pain. On exam patient moves all extremities. Patient has generalized weakness to bilateral lower legs. No palpable tenderness along the spine. Patient moves neck without difficulty. Patient responds appropriate to questioning. Abdomen is soft nontender. Chest wall is nontender. Patient has tenderness in the lateral right hip area. Differential diagnosis includes head injury, intracranial bleeding, cervical fracture, hip fracture. CBC noted some mild anemia with hemoglobin 9.8. CMP was unremarkable with a creatinine 1.2. Cervical spine noted no fractures. Head CT noted acute parafalcine subdural hematoma in the left anterior and posterior aspects of the falx. Hip x-ray noted no osseous abnormality. Chest x-ray noted some atelectasis in the right lung base which may be suggestive of pneumonia. Reviewed exam with Dr. Quinones who recommended consult with the family regarding their wishes on care of the patient. After discussion with son who is patient's POA, Vince, he wished for patient to go ahead and be transported to tertiary center for further evaluation and treatment of the brain bleed. Patient was transported to [facility] for further evaluation and treatment. We were unable to transport by air due to weather and patient went by ground ambulance. Lab Data 05/03/23 15:41 05/03/23 15:41 Radiology Impressions Cervical Spine CT 05/03/23 15:43 IMPRESSION: 1. No acute cervical spine fracture identified. 2. Minimal listhesis detailed above, favored degenerative. 3. Pulmonary disease suggesting emphysema and possibly chronic interstitial process. Head CT 05/03/23 15:43 IMPRESSION: Acute parafalcine subdural hematoma involving the left anterior and posterior aspect of the falx with extension along the superior aspect of the left tentorial leaflet. There is slight local mass effect primarily in terms of diminishment of adjacent sulci but no midline shift. Atrophy and findings of chronic small-vessel disease, with chronic lacune as noted above. ADDENDUM: 05/03/23 [id number] COMMENT: THIS REPORT CONTAINS FINDINGS THAT MAY BE CRITICAL TO PATIENT CARE. The exam findings were verbally communicated by me to JEAN PRINCE NP via telephone conference at 4:57 PM HADOOP CONSULTANT on 05/03/2023. The findings were acknowledged and understood. Hip/Pelvis X-Ray 05/03/23 15:43 IMPRESSION: 1. No acute osseous abnormality identified. Chest X-Ray 05/03/23 15:50 IMPRESSION: Small area of increased density at the right lung base likely atelectasis. Increased left base density suggesting combination of pleural effusion and atelectasis. Consider follow-up PA and lateral chest x-ray if there is clinical concern for pneumonia. Laboratory Results WBC 9.98 10^3/uL (3.29-11.43) 05/03/23 15:41 RBC 3.43 10^6/uL (3.85-5.65) L 05/03/23 15:41 Hgb 9.80 g/dL (11.27-16.99) L 05/03/23 15:41 Hct 31.6 % (36-47) L 05/03/23 15:41 MCV 92.1 fl (85-98) 05/03/23 15:41 MCH 28.6 pg (27-33) 05/03/23 15:41 MCHC 31.0 g/dL (30-55) 05/03/23 15:41 RDW 15.4 % (12.1-15.1) H 05/03/23 15:41 Plt Count 256 10^3/cmm (157-399) 05/03/23 15:41 MPV 10.7 fL (7.4-10.4) H 05/03/23 15:41 Neut % (Auto) 66.2 % 05/03/23 15:41 Lymph % (Auto) 19.0 % 05/03/23 15:41 [place] % (Auto) 9.1 % 05/03/23 15:41 Eos % (Auto) 3.4 % 05/03/23 15:41 Baso % (Auto) 1.1 % 05/03/23 15:41 Neut # (Auto) 6.60 10^3/uL (1.8-7.7) 05/03/23 15:41 Lymph # (Auto) 1.9 10^3/uL (0.8-4.8) 05/03/23 15:41 [place] # (Auto) 0.9 10^3/uL (0.2-0.9) 05/03/23 15:41 Eos # (Auto) 0.3 10^3/uL (0.0-0.8) 05/03/23 15:41 Baso # (Auto) 0.1 10^3/uL (0.0-0.1) 05/03/23 15:41 Nucleated RBC % (auto) 0 % 05/03/23 15:41 Nucleated RBCs # 0.0 /100WBC 05/03/23 15:41 Sodium 140 mmol/L (136-145) 05/03/23 15:41 Potassium 4.2 mmol/L (3.5-5.1) 05/03/23 15:41 Chloride 104 mmol/L (98-107) 05/03/23 15:41 Carbon Dioxide 23 mmol/L (22-29) 05/03/23 15:41 Anion Gap 17.2 (5-19) 05/03/23 15:41 BUN 18 mg/dL (8-23) 05/03/23 15:41 Creatinine 1.2 mg/dL (0.5-0.9) H 05/03/23 15:41 GFR Calculation Not Reportable 05/03/23 15:41 Glucose 111 mg/dL (65-115) 05/03/23 15:41 Calculated Osmolality 293 mOsm/kg (285-295) 05/03/23 15:41 Calcium 9.3 mg/dL (8.5-10.5) 05/03/23 15:41 Total Bilirubin 0.2 mg/dL (0.15-1.2) 05/03/23 15:41 AST 18 U/L (0-32) 05/03/23 15:41 ALT 13 U/L (0-33) 05/03/23 15:41 Alkaline Phosphatase 158 U/L (35-105) H 05/03/23 15:41 Total Protein 7.4 g/dL (6.6-8.7) 05/03/23 15:41 Albumin 4.0 g/dL (3.5-5.2) 05/03/23 15:41 Globulin 3.4 g/dL (1.3-4.6) 05/03/23 15:41 All radiology interpretation(s) finalized by discharge Discharge Plan Discharge Patient Disposition: Xfer Short-Term Hosp Clinical Impression: Acute subdural hematoma Head injury, acute Qualifiers: Encounter type: initial encounter Qualified Code(s): S09.90XA - Unspecified injury of head, initial encounter Condition: Stable Referrals: Lj Raza DO [Primary Care Provider] - Coding Level of Care Code ED Enrolled Nurse for Dominick Brewster
--- NOTE | 2023-05-03 15:50 | ECG_ITS ---
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 Measurements Intervals [place] Rate: 71 P: 48 AR: 142 QRS: 5 QRSD: 90 T: 32 QT: 393 QTc: 430 Interpretive Statements SINUS RHYTHM SEPTAL MYOCARDIAL INFARCTION , PROBABLY OLD [40+ ms Q WAVE IN V1/V2] Compared to ECG 01/13/2023 12:30:34 Myocardial infarct finding now present Short AR interval no longer present Intraventricular conduction delay no longer present T-wave abnormality no longer present Electronically Signed On 05-03-2023 21:50:11 PARTS IDENTIFIER by Ryanne Rodriguez M.D. [id number]
--- NOTE | 2023-05-03 15:50 | XRR_ITS ---
PROCEDURE INFORMATION: Exam: XR Chest Exam date and time: 05/03/2023 3:53 PM Age: 87 years old Clinical indication: Injury or trauma; Fall; Sprain or strain; Additional info: Weakness TECHNIQUE: Imaging protocol: Radiologic exam of the chest. Views: 1 view. COMPARISON: CR (CHEST, ) 01/13/2023 12:31 PM FINDINGS: Lungs: Increased patchy density at the right lung base laterally. Slightly increased opacity at the left lung base primarily laterally. The upper lung connors appear grossly clear. Pleural spaces: Increased density at the lateral costophrenic angle suggesting pleural fluid. Heart/Mediastinum: Cardiomediastinal silhouette grossly stable allowing for differences in projection. Bones/joints: No acute osseous abnormality identified. XR/XR chest 1V portable [id number] IMPRESSION: Small area of increased density at the right lung base likely atelectasis. Increased left base density suggesting combination of pleural effusion and atelectasis. Consider follow-up PA and lateral chest x-ray if there is clinical concern for pneumonia.
[2023-05-03 15:56] LABS: Basophils # 0.1 10^3/uL (0.0-0.1); Basophils % 1.1 %; Eosinophils # 0.3 10^3/uL (0.0-0.8); Eosinophils % 3.4 %; Hematocrit 31.6 % (36-47); Lymphocytes # 1.9 10^3/uL (0.8-4.8); Mean Corpuscular Hemoglobin 28.6 pg (27-33); Mean Corpuscular Volume 92.1 fl (85-98); Mean Platelet Volume 10.7 fL (7.4-10.4); Monocytes # 0.9 10^3/uL (0.2-0.9); Monocytes % 9.1 %; Neutrophils % 66.2 %; Nucleated Red Blood Cells % 0 %; Platelet Count 256 10^3/cmm (157-399); Red Blood Count 3.43 10^6/uL (3.85-5.65); Red Cell Distribution Width 15.4 % (12.1-15.1); White Blood Count 9.98 10^3/uL (3.29-11.43)
[2023-05-03 16:11] LABS: Alanine Aminotransferase 13 U/L (0-33); Alkaline Phosphatase 158 U/L (35-105); Anion Gap 17.2 (5-19); Aspartate Amino Transferase 18 U/L (0-32); Blood Urea Nitrogen 18 mg/dL (8-23); Calcium 9.3 mg/dL (8.5-10.5); Carbon Dioxide 23 mmol/L (22-29); Chloride 104 mmol/L (98-107); Globulin 3.4 g/dL (1.3-4.6); Glucose 111 mg/dL (65-115); Osmolality Calculated 293 mOsm/kg (285-295); Potassium 4.2 mmol/L (3.5-5.1); Sodium 140 mmol/L (136-145); Total Bilirubin 0.2 mg/dL (0.15-1.2); Total Protein 7.4 g/dL (6.6-8.7)
--- NOTE | 2023-05-03 16:34 | PC.PHAR ---
Addendum entered by Gayle Pittman 05/03/23 16:46: VERIFIED WITH DINESH, PT IS ONLY ON 8 MEDICATIONS CURRENTLY AND ALL OTHER MEDS HAVE BEEN DC'D. 05/03/26 Original Note: PT IS FROM DINESH 05/03/23
[2023-05-03 17:12] VITALS: PULSE 64; RESP 18; O2SAT 96
[2023-05-03 18:00] VITALS: BP 177/113; PULSE 76; RESP 22; O2SAT 94
[2023-05-03 18:55] VITALS: BP 169/99; PULSE 65; RESP 15; O2SAT 92
[2023-05-03 18:56] VITALS: BP 169/99; PULSE 67; O2SAT 94
== END 2023-05-03 19:01 | disposition short-term general hospital (02) ==
PROVIDERS: Emergency Provider Nurse Practitioner Family; PCP Family Medicine
DX: S06.5XAA Traumatic subdural hemorrhage with loss of consciousness status unknown, initial encounter (principal); F03.90 Unspecified dementia, unspecified severity, without behavioral disturbance, psychotic disturbance, mood disturbance, and anxiety; E78.5 Hyperlipidemia, unspecified; Z86.73 Personal history of transient ischemic attack (TIA), and cerebral infarction without residual deficits; I25.2 Old myocardial infarction; Z98.61 Coronary angioplasty status; Z87.891 Personal history of nicotine dependence; W01.0XXA Fall on same level from slipping, tripping and stumbling without subsequent striking against object, initial encounter
CPT/HCPCS: 70450; 71045; 72125; 73502; 80053; 85025; 93005; 99285